=== PATIENT | female | born 1930 | race Caucasian/White ===

== ENCOUNTER 2017-04-15 12:46 | Emergency (ER) | payer OTHER ==
[~2017-04-15] VITALS: Ht 160 cm; Wt 66.0 kg
[~2017-04-15 12:46] MED LIST: AMLO5 PO; COUM3TAB PO; ENAL10 PO; FOSA70TA PO; LEVO100T60 PO; LOVA1TAB47 PO; LUTEIN PO; METO50TA PO; TRAM100T19 PO; VITAMIN PO
[2017-04-15 12:50] VITALS: BP 136/73; PULSE 82; RESP 20; TEMP 97.6; O2SAT 94
[2017-04-15 13:30] LABS: BASOPHIL # 0.1 TH/MM3 (0-0.2); EOSINOPHIL # 0.1 TH/MM3 (0-0.4); HEMATOCRIT 40.7 % (35.0-46.0); HEMO FLAGS DIFF FINAL; LYMPH % 15.5 % (9.0-44.0); LYMPHOCYTE # 1.4 TH/MM3 (1.0-4.8); MEAN CELL VOLUME 88.5 FL (80.0-100.0); MEAN CORPUSCULAR HEMOGLOBIN 29.8 PG (27.0-34.0); MEAN CORPUSCULAR HGB CONC 33.6 % (32.0-36.0); MONO % 6.6 % (0.0-8.0); NEUT % 75.9 % (16.0-70.0); PLATELET COUNT 268 TH/MM3 (150-450); RED CELL DISTRIBUTION WIDTH 13.5 % (11.6-17.2); WHITE BLOOD COUNT 9.2 TH/MM3 (4.0-11.0)
--- NOTE | 2017-04-15 13:30 | PD ---
HPI Chief Complaint: Back/ Neck Pain or Injury Time Seen by Provider: 13:05 Travel History International Travel<30 days: No Contact w/Intl Traveler<30days: No Traveled to known affect area: No History of Present Illness HPI This is an 87-year-old female who presents to the emergency department with 4 days of mid back pain, constant, severe, worse with lifting her left arm and with moving. She's never had pain like this before. It started after she went swimming on Monday. She says that for 2 days she started to feel more short of breath and she hasn't been feeling right. She denies any chest pain. PFSH Past Medical History Hx Anticoagulant Therapy: Yes (warfarin) Arthritis: Yes Blood Disorders: No Anxiety: No Depression: No Heart Rhythm Problems: Yes (ATRIAL FIBRILLATION) Cancer: No Cardiac Catheterization: No Cardiovascular Problems: Yes (htn, afib) High Cholesterol: Yes Chest Pain: No Congestive Heart Failure: No Cerebrovascular Accident: No Diabetes: No Diminished Hearing: No Endocrine: Yes GERD: No Genitourinary: No Hiatal Hernia: No Hypertension: Yes Immune Disorder: No Implanted Vascular Access Dvce: Yes Musculoskeletal: Yes Neurologic: Yes Psychiatric: No Reproductive: Yes Respiratory: No Migraines: No Seizures: No Sleep Apnea: No Thyroid Disease: Yes (Hypothyroidism ) Tetanus Vaccination: < 5 Years Influenza Vaccination: Yes Past Surgical History Body Medical Devices: MCKAYLA EYE LENS; SCREWS RIGHT HIP, RIGHT HIP REPLACEMENT Coronary Artery Bypass Graft: No Eye Surgery: Yes (BILATERAL CATARACT SX) Hysterectomy: Yes Other Surgery: Yes (DETACHED RETINA RIGHT EYE 1992) Social History Alcohol Use: No Tobacco Use: No Substance Use: No Allergies-Medications (Allergen,Severity, Reaction): Coded Allergies: No Known Allergies (Verified , 04/15/17) Reported Meds & Prescriptions Reported Meds & Active Scripts Active Reported Tramadol (Tramadol HCl) 50 Mg Tab 50 Mg PO Q8H PRN Coumadin (Warfarin) 4 Mg Tab 4 Mg PO DAILY Metoprolol Tartrate 50 Mg Tab 50 Mg PO DAILY Lovastatin 20 Mg Tab 20 Mg PO DAILY Levoxyl (Levothyroxine Sodium) 100 Mcg Tab 100 Mcg PO DAILY Hydrochlorothiazide 12.5 Mg Cap 12.5 Mg PO DAILY Norvasc (Amlodipine Besylate) 10 Mg Tab 10 Mg PO BID Fosamax (Alendronate Sodium) 70 Mg Tab 70 Mg PO Q7D Review of Systems Except as stated in HPI: all other systems reviewed are Neg Physical Exam Narrative GENERAL:Well appearing, no acute distress SKIN: Focused skin assessment warm and dry. HEAD: Atraumatic. Normocephalic. EYES: Pupils equal and round. No injection or drainage. ENT: Moist mucous membranes NECK: Trachea midline. CARDIOVASCULAR: Regular rate and rhythm. No murmur appreciated. RESPIRATORY: Clear to auscultation. Breath sounds equal bilaterally. GASTROINTESTINAL: Abdomen soft, non-tender, nondistended. MUSCULOSKELETAL: Tender to palpation in the lower thoracic spine with tenderness to palpation in the left flank NEUROLOGICAL: Awake and alert. No obvious cranial nerve deficits. Moving all extremities. PSYCHIATRIC: Appropriate mood and affect; insight and judgment normal. Data Data Last Documented VS Vital Signs Date Time Temp Pulse Resp B/P Pulse Ox O2 Delivery O2 Flow Rate FiO2 04/15/17 15:54 16 04/15/17 15:21 97.8 72 142/70 99 Room Air Orders Complete Blood Count With Diff (04/15/17 13:13) Comprehensive Metabolic Panel (04/15/17 13:13) ^ Insert Iv (04/15/17 13:13) D-Dimer (04/15/17 13:13) Troponin I (04/15/17 13:13) Chest, Single Ap (04/15/17 ) Electrocardiogram (04/15/17 ) Spine, Thoracic-Ap/Lat/Sw(3vw) (04/15/17 ) Urinalysis - C+S If Indicated (04/15/17 14:02) Ct Pulmonary Angiogram (04/15/17 ) Ct Abd/Pel W Iv Contrast(Rout) (04/15/17 ) Ct Thor Spine W/O Contrast (04/15/17 ) Iohexol 350 Inj (Omnipaque 350 Inj) (04/15/17 14:56) Tramadol (Ultram) (04/15/17 15:15) Morphine Inj (Morphine Inj) (04/15/17 15:45) Troponin I (04/15/17 15:41) Labs Laboratory Tests Test 04/15/17 04/15/17 13:15 15:00 White Blood Count 9.2 TH/MM3 Red Blood Count 4.60 MIL/MM3 Hemoglobin 13.7 GM/DL Hematocrit 40.7 % Mean Corpuscular Volume 88.5 FL Mean Corpuscular Hemoglobin 29.8 PG Mean Corpuscular Hemoglobin 33.6 % Concent Red Cell Distribution Width 13.5 % Platelet Count 268 TH/MM3 Mean Platelet Volume 8.2 FL Neutrophils (%) (Auto) 75.9 % Lymphocytes (%) (Auto) 15.5 % Monocytes (%) (Auto) 6.6 % Eosinophils (%) (Auto) 1.0 % Basophils (%) (Auto) 1.0 % Neutrophils # (Auto) 7.0 TH/MM3 Lymphocytes # (Auto) 1.4 TH/MM3 Monocytes # (Auto) 0.6 TH/MM3 Eosinophils # (Auto) 0.1 TH/MM3 Basophils # (Auto) 0.1 TH/MM3 CBC Comment DIFF FINAL Differential Comment D-Dimer Quantitative (PE/DVT) 0.19 MG/L FEU Sodium Level 140 MEQ/L Potassium Level 4.0 MEQ/L Chloride Level 105 MEQ/L Carbon Dioxide Level 29.5 MEQ/L Anion Gap 6 MEQ/L Blood Urea Nitrogen 17 MG/DL Creatinine 1.02 MG/DL Estimat Glomerular Filtration 52 ML/MIN Rate Random Glucose 155 MG/DL Calcium Level 9.0 MG/DL Total Bilirubin 0.4 MG/DL Aspartate Amino Transf 15 U/L (AST/SGOT) Alanine Aminotransferase 17 U/L (ALT/SGPT) Alkaline Phosphatase 67 U/L Troponin I LESS THAN 0.02 NG/ML Total Protein 8.0 GM/DL Albumin 3.8 GM/DL Urine Color YELLOW Urine Turbidity CLEAR Urine pH 7.5 Urine Specific [place] 1.034 Urine Protein 30 mg/dL Urine Glucose (UA) NEG mg/dL Urine Ketones NEG mg/dL Urine Occult Blood NEG Urine Nitrite NEG Urine Bilirubin NEG Urine Urobilinogen LESS THAN 2.0 MG/DL Urine Leukocyte Esterase NEG Urine RBC 3 /hpf Urine WBC LESS THAN 1 /hpf Urine Squamous Epithelial <1 /hpf Cells Urine Hyaline Casts 1 /lpf Microscopic Urinalysis Comment CULT NOT INDICATED MDM Medical Decision Making Medical Screen Exam Complete: Yes Emergency Medical Condition: Yes Interpretation(s) afebrile, no tachycardia, normotensive EKG: atrial fibrillation,possible q waves in V1-V3 no leukocytosis electrolytes reassuring troponin less than .02 urinalysis: no infection Last 24 hours Impressions Thoracic Spine X-Ray 04/15/17 0000 Signed Impressions: Service Date/Time: Saturday, April 15, 2017 13:26 - CONCLUSION: 1. Mild scoliosis. No acute fracture identified. Stable mild compression deformity at T12. Vignesh Rangel MD Thoracic Spine CT 04/15/17 Signed Impressions: Service Date/Time: Saturday, April 15, 2017 14:31 - CONCLUSION: 1. Minimal superior endplate depression at T6 which is probably acute. Mild scoliosis. Old mild compression deformity of T12. Vignesh Rangel MD Chest X-Ray 04/15/17 Signed Impressions: Service Date/Time: Saturday, April 15, 2017 13:24 - CONCLUSION: 1. Cardiomegaly. Mild basal airspace disease. No significant effusion. Vignesh Rangel MD CT Angiography 04/15/17 Signed Impressions: Service Date/Time: Saturday, April 15, 2017 14:31 - CONCLUSION: 1. Negative for pulmonary embolism. Cardiomegaly. Hepatic cysts. Vignesh Rangel MD Abdomen/Pelvis CT 04/15/17 Signed Impressions: Service Date/Time: Saturday, April 15, 2017 14:31 - CONCLUSION: 1. No acute findings within the abdomen and pelvis. Colonic diverticulosis without diverticulitis. 2. Numerous hepatic and bilateral renal cysts. 3. Previous right hip replacement. Healed pelvic fractures. 4. 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 Vignesh Rangel MD Differential Diagnosis Thoracic compression fracture, kidney stone, pulmonary embolism, pneumonia, rib fracture Narrative Course This is an 87-year-old female who presents to the emergency department with midthoracic back pain. She denies any history of trauma. She is focally tender along the mid thoracic spine and along the left paraspinal area. She is placed in a monitor and an IV was established. EKG demonstrates atrial fibrillation and possible old Q waves in V1 through V3. Labs are unremarkable. T-spine x-ray initially demonstrated a chronic compression fracture at T12. Her pain appeared higher and she was also complaining of some pain laterally. Given her age and her level of discomfort I ordered a CT of the chest, thoracic spine and abdomen and pelvis. Ultimately she was found to have a compression deformity at T6 which is likely acute which I suspect is the etiology of her pain. I did repeat a troponin after 3 hours which was reassuring. Patient will be discharged home with pain control and follow-up with a neurosurgeon. Diagnosis Primary Impression: Compression deformity of vertebra Referrals: Fredo Vigil MD Patient Instructions: General Instructions Additional Instructions: If you develop weakness of your legs, difficulty walking, numbness of your legs or your genital or rectal area, loss of your bowel or bladder, or difficulty urinating return to the emergency department immediately. Followup with a neurosurgeon regarding your back pain if your symptoms are not improved in one week.. Med/Other Pt SpecificInfo: Prescription(s) given Scripts Hydrocodone-Acetaminophen (Lortab)5-325 Mg Tab1 Tab PO Q6H PRN (PAIN) #14 TAB Ref 0 Prov:Barbie Mancini MD 04/15/17 Disposition: 01 DISCHARGE HOME Condition: Stable Barbie Mancini MD Apr 15, 2017 13:30
[2017-04-15] MEDS ORDERED: LEVO100T63 PO (13:39)
[2017-04-15] MEDS ORDERED: FOSA70TA PO (13:39)
[2017-04-15] MEDS ORDERED: LOVA20TA PO (13:39)
[2017-04-15] MEDS ORDERED: COUM4TAB PO (13:39)
[2017-04-15] MEDS ORDERED: AMLO10 PO (13:39)
[2017-04-15] MEDS ORDERED: METO50TA PO (13:39)
[2017-04-15] MEDS ORDERED: HYDR12.57 PO (13:39)
[2017-04-15] MEDS ORDERED: TRAM50TA PO (13:40)
[2017-04-15 13:43] LABS: ALT (GPT) 17 U/L (10-53); ANION GAP 6 MEQ/L (5-15); AST (GOT) 15 U/L (15-37); BICARBONATE 29.5 MEQ/L (21.0-32.0); BLOOD UREA NITROGEN 17 MG/DL (7-18); CHLORIDE 105 MEQ/L (98-107); GLOMERULAR FILTRATION RATE 52 ML/MIN (>89); SODIUM (NA) 140 MEQ/L (136-145)
[2017-04-15 13:47] LABS: ALKALINE PHOSPHATASE 67 U/L (45-117); TOTAL BILIRUBIN ADULT 0.4 MG/DL (0.2-1.0)
--- NOTE | 2017-04-15 13:54 | RADRPT ---
EXAM DATE/TIME: 04/15/2017 13:24 [facility] COMPARISON: CHEST SINGLE AP, March 02, 2015, 11:55. INDICATIONS : Shortness of breath and upper back pain. MEDICAL HISTORY : Hypercholesterolemia. Hypertension Hypothyroidism. A-fib. SURGICAL HISTORY : Hysterectomy. Right total hip. ENCOUNTER: Initial ACUITY: 2 days PAIN SCORE: 5/10 LOCATION: Bilateral chest FINDINGS: A single view of the chest demonstrates cardiomegaly. Mild basal airspace disease. No significant eff usion. No pneumothorax. CONCLUSION: 1. Cardiomegaly. Mild basal airspace disease. No significant effusion. Vignesh Rangel MD on April 15, 2017 at 13:50 Board Certified Radiologist. This report was verified electronically.
--- NOTE | 2017-04-15 13:58 | RADRPT ---
EXAM DATE/TIME: 04/15/2017 13:26 [facility] COMPARISON: CHEST PA & LAT, March 06, 2015, 10:09. INDICATIONS : Upper back pain. No prior trauma. MEDICAL HISTORY : Hypercholesterolemia. Hypertension Hypothyroidism. A-fib. SURGICAL HISTORY : Hysterectomy. Right total hip. ENCOUNTER: Initial ACUITY: 2 days PAIN SCORE: 10/10 LOCATION: upper back. FINDINGS: No acute fracture identified. Mild superior endplate depression at T12 which is similar to a prior est radiograph from February 2015. Moderate degenerative disc disease. Mild scoliosis. CONCLUSION: 1. Mild scoliosis. No acute fracture identified. Stable mild compression deformity at T12. Vignesh Rangel MD on April 15, 2017 at 13:52 Board Certified Radiologist. This report was verified electronically.
--- NOTE | 2017-04-15 14:55 | RADRPT ---
EXAM DATE/TIME: 04/15/2017 14:31 [facility] COMPARISON: No previous studies available for comparison. INDICATIONS : Upper back pain and shortness of breath for three days. IV CONTRAST: 75 cc Omnipaque 350 (iohexol) IV ; Cumulative dose for multiple exams. RADIATION DOSE: 6.72 CTDIvol (mGy) MEDICAL HISTORY : Hypertension. Cardiovascular disease Hypothyroidism. SURGICAL HISTORY : Hysterectomy. ENCOUNTER: Initial ACUITY: 1 day PAIN SCALE: 5/10 LOCATION: upper back TECHNIQUE: Volumetric scanning of the chest was performed using a pulmonary embolism protocol MIP images were re constructed. Using automated exposure control and adjustment of the mA and/or kV according to patien t size, radiation dose was kept as low as reasonably achievable to obtain optimal diagnostic quality images. DICOM format image data is available electronically for review and comparison. FINDINGS: No filling defects to suggest pulmonary embolus. Mild basilar dependent atelectasis in the lungs. Car diomegaly. No effusion. Upper abdomen reveals numerous hepatic cysts. CONCLUSION: 1. Negative for pulmonary embolism. Cardiomegaly. Hepatic cysts. Vignesh Rangel MD on April 15, 2017 at 14:48 Board Certified Radiologist. This report was verified electronically.
[2017-04-15] MEDS ORDERED: IOHEXOL 350 MG/ML 10 ML VIAL (for RAD DIAG) IV ONE (14:56)
[2017-04-15] MEDS ORDERED: traMADol HCL 50 MG TAB PO ONE (15:15)
--- NOTE | 2017-04-15 15:19 | RADRPT ---
EXAM DATE/TIME: 04/15/2017 14:31 [facility] COMPARISON: CT PULMONARY ANGIOGRAM, March 02, 2015, 16:02. INDICATIONS : Back pain. IV CONTRAST: 100 cc Omnipaque 350 (iohexol) IV ORAL CONTRAST: No oral contrast ingested. RADIATION DOSE: 11.41 CTDIvol (mGy) MEDICAL HISTORY : Cardiovascular disease. Hypertension. SURGICAL HISTORY : None. ENCOUNTER: Initial ACUITY: 1 day PAIN SCALE: 5/10 LOCATION: Bilateral back. TECHNIQUE: Volumetric scanning of the abdomen and pelvis was performed. Using automated exposure control and ad justment of the mA and/or kV according to patient size, radiation dose was kept as low as reasonably achievable to obtain optimal diagnostic quality images. DICOM format image data is available electro nically for review and comparison. FINDINGS: Numerous hepatic cysts are noted similar to CT from February 2015. Lung bases clear except for dependent a telectasis. Cardiomegaly. No acute findings in the spleen, adrenals or pancreas. Numerous bilateral renal cysts measuring up to 6.1 cm on the right. There is colonic diverticulosis without evidence for diverticulitis. Previous right hip replacement. Healed fracture left pubic bone and inferior pubic ramus. CONCLUSION: 1. No acute findings within the abdomen and pelvis. Colonic diverticulosis without diverticulitis. 2. Numerous hepatic and bilateral renal cysts. 3. Previous right hip replacement. Healed pelvic fractures. 4. Stable remote compression deformity of T12 with moderate to severe degenerative disc disease in akhil mbar spine. Vignesh Rangel MD on April 15, 2017 at 15:09 Board Certified Radiologist. This report was verified electronically.
[2017-04-15 15:21] VITALS: BP 142/70; PULSE 72; RESP 16; TEMP 97.8; O2SAT 99
--- NOTE | 2017-04-15 15:24 | RADRPT ---
EXAM DATE/TIME: 04/15/2017 14:31 [facility] COMPARISON: No previous studies available for comparison. INDICATIONS : Back pain. RADIATION DOSE: ; Reconstructed from previous dataset MEDICAL HISTORY : Cardiovascular disease. Hypertension. SURGICAL HISTORY : None. ENCOUNTER: Initial ACUITY: 1 day PAIN SCALE: 6/10 LOCATION: Bilateral back TECHNIQUE: Volumetric scanning of the thoracic spine was performed. Multiplanar reconstructions in the sagittal , coronal and oblique axial planes were performed. Using automated exposure control and adjustment o f the mA and/or kV according to patient size, radiation dose was kept as low as reasonably achievable to obtain optimal diagnostic quality images. DICOM format image data is available electronically f or review and comparison. FINDINGS: There is a questionable minimal superior endplate compression of T6. No retropulsion. No fractures id entified. Stable chronic depression of T12. Mild scoliosis. No significant bony canal or foraminal st enosis. CONCLUSION: 1. Minimal superior endplate depression at T6 which is probably acute. Mild scoliosis. Old mild compr ession deformity of T12. Vignesh Rangel MD on April 15, 2017 at 15:17 Board Certified Radiologist. This report was verified electronically.
[2017-04-15 15:37] LABS: BLOOD, URINE NEG (NEG); COMMENT (UR) CULT NOT INDICATED; CULTURE IF INDICATED CULT NOT INDICATED; GLUCOSE,URINE NEG (NEG); HYALINE CAST, URINE 1 /lpf (RARE); KETONE, URINE NEG (NEG); NITRITE,URINE NEG (NEG); PH, URINE 7.5 (5.0-8.5); SQUAMOUS EPITHELIAL CELL URINE <1 /hpf (0-5); URINE COLOR YELLOW (YELLW/STRAW)
[2017-04-15] MEDS ORDERED: MORPHINE SULFATE 4 MG/ML INJ IV PUSH ONE (15:45)
[2017-04-15 15:54] VITALS: RESP 16
[2017-04-15] MEDS ORDERED: HYDR-3533 PO (16:41)
[2017-04-15 17:10] VITALS: BP 138/76; TEMP 97.8
--- NOTE | 2017-04-16 13:32 | EKG ---
Date Performed: 04/15/2017 Time Performed: 13:49:58 PTAGE: 87 years EKG: ATRIAL FIBRILLATION MARKED RIGHT AXIS DEVIATION SEPTAL MYOCARDIAL INFARCTION Compared to pr evious tracing, the lateral ST segment changes have resolved. ABNORMAL ECG PREVIOUS TRACING : 03/02/2015 13.04 DOCTOR: Tamiko Ames Interpretating Date/Time 04/16/2017 13:31:41
== END 2017-04-15 17:10 | disposition home or self-care (01) ==
LOC: NEPE 12:46
DX: M43.8X4 Other specified deforming dorsopathies, thoracic region (principal); R06.02 Shortness of breath; R94.31 Abnormal electrocardiogram [ECG] [EKG]; I10 Essential (primary) hypertension; E03.9 Hypothyroidism, unspecified; E78.00 Pure hypercholesterolemia, unspecified; Z79.01 Long term (current) use of anticoagulants; Z87.39 Personal history of other diseases of the musculoskeletal system and connective tissue; Z86.79 Personal history of other diseases of the circulatory system; Z86.69 Personal history of other diseases of the nervous system and sense organs
CPT/HCPCS: 71010; 71275; 72072; 72128; 74177; 80053; 81001; 84484; 85025; 85379; 93005; 96374; 99285; J2270; Q9967

== ENCOUNTER 2017-05-19 02:17 | Inpatient (IN) | payer OTHER, MEDICARE ==
[~2017-05-19] VITALS: Ht 160 cm; Wt 72.0 kg
[2017-05-19] VITALS (11 sets, daily range): BP systolic 131–178; BP diastolic 62–86; PULSE 71–86; RESP 16–20; TEMP 97.7–98.5; O2SAT 94–98
[~2017-05-19 02:17] MED LIST changes: +AMLO10 PO; -AMLO5 PO; -COUM3TAB PO; +COUM4TAB PO; -ENAL10 PO; +HYDR-3533 PO; +HYDR12.57 PO; -LEVO100T60 PO; +LEVO100T63 PO; -LOVA1TAB47 PO; +LOVA20TA PO; -LUTEIN PO; -TRAM100T19 PO; +TRAM50TA PO; -VITAMIN PO
[2017-05-19] MEDS ORDERED: SODIUM CHLORIDE 0.9% FLUSH 10 ML FLUSH IVF PRN (03:15)
[2017-05-19 03:31] LABS: AUTOMATED NEUTROPHIL # 5.6 TH/MM3 (1.8-7.7); BASOPHIL # 0.1 TH/MM3 (0-0.2); BASOPHIL % 0.9 % (0.0-2.0); EOSINOPHIL # 0.4 TH/MM3 (0-0.4); EOSINOPHIL % 4.5 % (0.0-4.0); HEMO FLAGS DIFF FINAL; LYMPH % 21.6 % (9.0-44.0); LYMPHOCYTE # 1.9 TH/MM3 (1.0-4.8); MEAN CELL VOLUME 90.3 FL (80.0-100.0); MEAN CORPUSCULAR HEMOGLOBIN 30.5 PG (27.0-34.0); MEAN CORPUSCULAR HGB CONC 33.7 % (32.0-36.0); MONO % 10.4 % (0.0-8.0); NEUT % 62.6 % (16.0-70.0); PLATELET COUNT 208 TH/MM3 (150-450); RED BLOOD COUNT 3.99 MIL/MM3 (4.00-5.30); RED CELL DISTRIBUTION WIDTH 13.6 % (11.6-17.2)
[2017-05-19 03:45] LABS: APTT (PATIENT) 26.5 SEC (24.3-30.1); INTERNATIONAL NORMALIZED RATIO 1.3 RATIO; PROTHROMBIN TIME - PATIENT 14.8 SEC (9.8-11.6)
[2017-05-19 03:55] LABS: BICARBONATE 29.3 MEQ/L (21.0-32.0)
--- NOTE | 2017-05-19 04:51 | PD ---
HPI Chief Complaint: Musculoskeletal Complaint Time Seen by Provider: 02:37 Travel History International Travel<30 days: No Contact w/Intl Traveler<30days: No Traveled to known affect area: No History of Present Illness HPI 87-year-old female woke up this morning at approximately 1 AM with a cold sensation in her right lower extremity, about 1 hour prior to ER arrival. The patient then ambulated to the bathroom and felt fairly severe pain in the region of the right calf. She notes a few days prior she underwent a kyphoplasty by Dr. Gonzalez. The patient stopped taking Coumadin in order to undergo the procedure. She has atrial fibrillation. She resumed Coumadin 3 days ago however is unsure of her INR value. At the time of ER evaluation she describes mild persistent cold sensation in the right lower extremity though much better than at home. She also reports overall the right calf pain is less severe. She did note at home the right foot appeared somewhat zaidi compared to the left and although it is still zaidi in the ER it is not quite as bad. PFSH Past Medical History Hx Anticoagulant Therapy: Yes (Warfarin) Arthritis: Yes Blood Disorders: No Anxiety: No Depression: No Heart Rhythm Problems: Yes (ATRIAL FIBRILLATION) Cancer: No Cardiac Catheterization: No Cardiovascular Problems: Yes (CHF, Cardiomyopathy, HTN, A-fib) High Cholesterol: Yes Chest Pain: No Congestive Heart Failure: No Cerebrovascular Accident: No Diabetes: No Diminished Hearing: No Endocrine: Yes Gastrointestinal Disorders: Yes GERD: No Genitourinary: No Headaches: No Hiatal Hernia: No Heparin Induced Thrombocytopen: No Hypertension: Yes Immune Disorder: No Implanted Vascular Access Dvce: Yes Musculoskeletal: Yes Neurologic: Yes Psychiatric: No Reproductive: Yes Respiratory: No Immunizations Current: Yes Migraines: No Seizures: No Sleep Apnea: No Thyroid Disease: Yes (Hypothyroidism ) Tetanus Vaccination: > 5 Years Influenza Vaccination: Yes ?: Not Past Surgical History Body Medical Devices: MCKAYLA EYE LENS; SCREWS RIGHT HIP, RIGHT HIP REPLACEMENT Coronary Artery Bypass Graft: No Eye Surgery: Yes (BILATERAL CATARACT SX) Hysterectomy: Yes Other Surgery: Yes (DETACHED RETINA RIGHT EYE 1992) Family History Family Myocardial Infarction: No Social History Alcohol Use: No Tobacco Use: No Substance Use: No Allergies-Medications (Allergen,Severity, Reaction): Coded Allergies: No Known Allergies (Verified , 05/19/17) Reported Meds & Prescriptions Reported Meds & Active Scripts Active Lortab (Hydrocodone-Acetaminophen) 5-325 Mg Tab 1 Tab PO Q6H PRN Reported Tramadol (Tramadol HCl) 50 Mg Tab 50 Mg PO Q8H PRN Coumadin (Warfarin) 4 Mg Tab 4 Mg PO DAILY Metoprolol Tartrate 50 Mg Tab 50 Mg PO DAILY Lovastatin 20 Mg Tab 20 Mg PO DAILY Levoxyl (Levothyroxine Sodium) 100 Mcg Tab 100 Mcg PO DAILY Hydrochlorothiazide 12.5 Mg Cap 12.5 Mg PO DAILY Norvasc (Amlodipine Besylate) 10 Mg Tab 10 Mg PO BID Fosamax (Alendronate Sodium) 70 Mg Tab 70 Mg PO Q7D Review of Systems Except as stated in HPI: all other systems reviewed are Neg General / Constitutional: No: Fever Musculoskeletal: Positive: Pain Physical Exam Narrative GENERAL: 87-year-old female well-nourished well-developed pleasant mild distress SKIN: Focused skin assessment warm/dry. HEAD: Atraumatic. Normocephalic. EYES: Pupils equal and round. No scleral icterus. No injection or drainage. ENT: No nasal bleeding or discharge. Mucous membranes pink and moist. NECK: Trachea midline. No JVD. CARDIOVASCULAR: Irregular. Rate approximately 80. RESPIRATORY: No accessory muscle use. Clear to auscultation. Breath sounds equal bilaterally. GASTROINTESTINAL: Abdomen soft, non-tender, nondistended. Hepatic and splenic margins not palpable. MUSCULOSKELETAL: No obvious deformities. No clubbing. No cyanosis. No edema. There is no palpable dorsalis pedis pulse in the right side. There is capillary refill of less than 2 seconds. The right lower extremity is somewhat cooler compared to the left at the region of the dorsum of the foot. There is 2 + dorsalis pedis on the left side. NEUROLOGICAL: Awake and alert. No obvious cranial nerve deficits. Motor grossly within normal limits. Normal speech. PSYCHIATRIC: Appropriate mood and affect; insight and judgment normal. Data Data Last Documented VS Vital Signs Date Time Temp Pulse Resp B/P Pulse Ox O2 Delivery O2 Flow Rate FiO2 05/19/17 03:19 18 05/19/17 02:19 97.9 78 178/86 97 Room Air Vital signs reviewed Orders Basic Metabolic Panel (Bmp) (05/19/17 03:03) Complete Blood Count With Diff (05/19/17 03:03) Prothrombin Time / Inr (Pt) (05/19/17 03:03) Act Partial Throm Time (Ptt) (05/19/17 03:03) Ecg Monitoring (05/19/17 03:03) Iv Access Insert/Monitor (05/19/17 03:03) Oximetry (05/19/17 03:03) Sodium Chloride 0.9% Flush (Ns Flush) (05/19/17 03:15) Cta Runoff W Iv Contrast W 3d (05/19/17 ) Heparin Infusion ARTURO.Q1H (05/19/17 05:09) Heparin Inj (Heparin Inj) (05/19/17 05:15) Heparin Inj (Heparin Inj) (05/19/17 11:15) Heparin Inj (Heparin Inj) (05/19/17 11:15) Heparin-D5w Inj (Heparin-D5w Inj) (05/19/17 05:15) Cbc No Diff, Includes Plts (05/22/17 06:00) Act Partial Throm Time (Ptt) (05/19/17 12:09) Occult Blood (Hemoccult) Stool (05/19/17 05:09) Consult Vascular Surgery (05/19/17 ) Admit Order (Ed Use Only) (05/19/17 05:24) Admit To Inpatient (05/19/17 ) Vital Signs (Adult) Q4H (05/19/17 05:22) Activity Bed Rest (05/19/17 05:22) Elder Counselor / Telemetry .CONTINUOUS (05/19/17 05:22) Diet Npo (05/19/17 Breakfast) Sodium Chloride 0.9% Flush (Ns Flush) (05/19/17 05:30) Sodium Chloride 0.9% Flush (Ns Flush) (05/19/17 09:00) Ondansetron Inj (Zofran Inj) (05/19/17 05:30) Comprehensive Metabolic Panel (05/20/17 06:00) Complete Blood Count With Diff (05/20/17 06:00) Acetaminophen (Tylenol) (05/19/17 05:30) Acetamin-Hydrocod 325-5 Mg ([place] 5-325 (05/19/17 05:30) Morphine Inj (Morphine Inj) (05/19/17 05:30) Docusate Sodium-Senna ([place]-Colace) (05/19/17 09:00) Magnesium Hydroxide Liq (Milk Of Magnesi (05/19/17 05:30) Sennosides (Senokot) (05/19/17 05:30) Bisacodyl Supp (Dulcolax Supp) (05/19/17 05:30) Lactulose Liq (Lactulose Liq) (05/19/17 05:30) Inpatient Certification (05/19/17 ) Pravastatin (Pravachol) (05/19/17 09:00) Metoprolol Tartrate (Lopressor) (05/19/17 09:00) Labs Laboratory Tests Test 05/19/17 03:15 White Blood Count 9.0 TH/MM3 Red Blood Count 3.99 MIL/MM3 Hemoglobin 12.1 GM/DL Hematocrit 36.0 % Mean Corpuscular Volume 90.3 FL Mean Corpuscular Hemoglobin 30.5 PG Mean Corpuscular Hemoglobin 33.7 % Concent Red Cell Distribution Width 13.6 % Platelet Count 208 TH/MM3 Mean Platelet Volume 7.8 FL Neutrophils (%) (Auto) 62.6 % Lymphocytes (%) (Auto) 21.6 % Monocytes (%) (Auto) 10.4 % Eosinophils (%) (Auto) 4.5 % Basophils (%) (Auto) 0.9 % Neutrophils # (Auto) 5.6 TH/MM3 Lymphocytes # (Auto) 1.9 TH/MM3 Monocytes # (Auto) 0.9 TH/MM3 Eosinophils # (Auto) 0.4 TH/MM3 Basophils # (Auto) 0.1 TH/MM3 CBC Comment DIFF FINAL Differential Comment Prothrombin Time 14.8 SEC Prothromb Time International 1.3 RATIO Ratio Activated Partial 26.5 SEC Thromboplast Time Sodium Level 143 MEQ/L Potassium Level 4.0 MEQ/L Chloride Level 105 MEQ/L Carbon Dioxide Level 29.3 MEQ/L Anion Gap 9 MEQ/L Blood Urea Nitrogen 24 MG/DL Creatinine 0.87 MG/DL Estimat Glomerular Filtration 62 ML/MIN Rate Random Glucose 118 MG/DL Calcium Level 8.9 MG/DL MDM Medical Decision Making Medical Screen Exam Complete: Yes Emergency Medical Condition: Yes Medical Record Reviewed: Yes Differential Diagnosis Arterial occlusion, muscle cramp, claudication, DVT Narrative Course Patient has a right lower extremity arterial occlusion. Heparin started. Case discussed vascular surgery Dr. Gtz. The patient will be kept nothing by mouth. Case discussed with Dr. Pardo. CBC & BMP Diagram 05/19/17 03:15 Critical Care Narrative Aggregate critical care time was 40 minutes. Time to perform other separately billable procedures was not included in the critical care time. My time did not include minutes spent treating any other patients simultaneously or on activities that did not directly contribute to the patient's treatment. The services I provided to this patient were to treat and/or prevent clinically significant deterioration that could result in: Loss of limb, ischemia, infection I provided critical care services requiring my management, as noted below: Chart data review, documentation time, medication orders and management, vital sign assessments/reviewing monitor data, ordering and reviewing lab tests, ordering and interpreting/reviewing x-rays and diagnostic studies, care of the patient and discussion of the patient with the admitting physicians. Diagnosis Primary Impression: Arterial occlusion Admitting Information Admitting Physician Requests: Tim Wall MD May 19, 2017 04:51
[2017-05-19] MEDS ORDERED: HEPARIN SODIUM - IV 10,000 UNITS/10 ML VIAL IV ONE (05:15)
[2017-05-19] MEDS ORDERED: HEPARIN-D5W INJ 250 ML IV SCH (05:15)
[2017-05-19] MEDS ORDERED: SENNOSIDES 8.6 MG TAB PO PRN (05:30)
[2017-05-19] MEDS ORDERED: MAGNESIUM HYDROXIDE SUSP 30 ML CUP PO PRN ×2 (05:30→09:45)
[2017-05-19] MEDS ORDERED: LACTULOSE SYRUP 20 GM/30 ML CUP PO PRN (05:30)
[2017-05-19] MEDS ORDERED: SODIUM CHLORIDE 0.9% FLUSH 10 ML FLUSH IV FLUSH PRN (05:30)
[2017-05-19] MEDS ORDERED: ONDANSETRON HCL 4 MG/2 ML VIAL IVP PRN (05:30)
[2017-05-19] MEDS ORDERED: ACETAMINOPHEN 325 MG TAB PO PRN ×2 (05:30→09:45)
[2017-05-19] MEDS ORDERED: MORPHINE SULFATE 4 MG/ML INJ IV PRN (05:30)
[2017-05-19] MEDS ORDERED: BISACODYL 10 MG SUPP RECTAL PRN (05:30)
[2017-05-19] MEDS ORDERED: ACETAMINOPHEN/HYDROcodone 325 MG/5 MG TAB PO PRN (05:30)
[2017-05-19] MEDS ORDERED: IOHEXOL 350 MG/ML 10 ML VIAL (for RAD DIAG) IV ONE (06:08)
--- NOTE | 2017-05-19 06:37 | RADRPT ---
EXAM DATE/TIME: 05/19/2017 04:55 [place] COMPARISON: No previous studies available for comparison. INDICATIONS : Patient complains of right leg pain and is cold from the knee down. IV CONTRAST: 100 cc Omnipaque 350 (iohexol) IV RADIATION DOSE: 2.31 CTDIvol (mGy) MEDICAL HISTORY : Cardiovascular disease. Hypertension. Congestive heart failure. SURGICAL HISTORY : Hysterectomy. Right hip replacement. ENCOUNTER: Initial ACUITY: 1 day PAIN SCALE: 5/10 LOCATION: Right lower extremity. TECHNIQUE: Volumetric scanning was performed using a multi-row detector CT scanner. The data was post processed with a variety of visualization algorithms including full volume maximum intensity projection, multi -planar sliding thin slab reformation, curved planar reformation, and surface rendering techniques. Using automated exposure control and adjustment of the mA and/or kV according to patient size, radiat ion dose was kept as low as reasonably achievable to obtain optimal diagnostic quality images. DICO M format image data is available electronically for review and comparison. FINDINGS: Examination of the lung bases demonstrates no abnormality. No pleural fluid is identified. No pulmona ry nodules are present. There are multiple hypodensities within the liver compatible with hepatic cys ts the largest measuring 3 cm in segment 2The spleen is normal in size and free of focal defects. The gallbladder and pancreas are unremarkable. No intrahepatic or extrahepatic ductal dilatation is seen . The adrenal glands are unremarkable. There are simple cysts bilaterally the largest measuring 6.6 c m in the lower pole on the right. There is diverticulosis without evidence of diverticulitis. There i s a 2.7 cm right adnexal cyst. The aorta is normal in caliber. There is no evidence of aneurysm or dissection. The renal artery orig ins are patent bilaterally. The celiac axis and superior mesenteric artery origins are also patent. Examination of the right lower extremity demonstrates no evidence of inflow stenosis. The common femo ral artery is patent. The superficial femoral artery is patent. There is abrupt occlusion of the dist al popliteal artery with reconstitution of the trifurcation vessels. Embolus should be considered. Examination of the left lower extremity demonstrates no evidence of inflow stenosis. The common femor al artery is patent. The superficial femoral artery is widely patent. The popliteal segment is unrema rkable. There is three-vessel runoff to the ankle. CONCLUSION: 1. 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 2. Multiple bilateral renal cysts and hepatic cysts. 3. 2.7 cm right adnexal cyst. Mike Fonseca MD on May 19, 2017 at 6:29 Board Certified Radiologist. This report was verified electronically.
--- NOTE | 2017-05-19 07:16 | PD.VS.CON ---
History of Present Illness Chief Complaint: New onset right calf pain that awakened her. Consult Requested by: History of Present Illness 87-year-old female woke up this morning at approximately 1 AM with a cold sensation in her right lower extremity, With ambulation severe pain in the region of the right calf. Foot was cold and discolored (bluish). Pain still intense with ambulation. She notes a few days prior she underwent a kyphoplasty by Dr. Gonzalez. Coumadin was held, hx of afib. Past/Family/Social History Past Medical History CHF afib OA Hyperlipidemia Past Surgical History kyphoplasty right hip surgery Home Medications Active Scripts Hydrocodone-Acetaminophen (Lortab)5-325 Mg Tab1 Tab PO Q6H PRN (PAIN) #14 TAB Ref 0 Prov:Barbie Mancini MD 04/15/17 Reported Medications Tramadol 50 Mg Tab50 Mg PO Q8H PRN (PAIN) Ref 0 04/15/17 Warfarin (Coumadin)4 Mg Tab4 Mg PO DAILY #30 TAB Ref 0 04/15/17 Metoprolol Tartrate 50 Mg Tab50 Mg PO DAILY #30 TAB Ref 0 04/15/17 Lovastatin 20 Mg Tab20 Mg PO DAILY #30 TAB Ref 0 04/15/17 Levothyroxine (Levoxyl)100 Mcg Yaf323 Mcg PO DAILY #30 TAB Ref 0 04/15/17 Hydrochlorothiazide 12.5 Mg Cap12.5 Mg PO DAILY #30 CAP Ref 0 04/15/17 Amlodipine (Norvasc)10 Mg Tab10 Mg PO BID #30 TAB Ref 0 04/15/17 Alendronate (Fosamax)70 Mg Tab70 Mg PO Q7D #4 TAB Ref 0 04/15/17 Coded Allergies: No Known Allergies (Verified , 05/19/17) Physical Exam Vitals/I&O Date Time Temp Pulse Resp B/P Pulse Ox O2 Delivery O2 Flow Rate FiO2 05/19/17 05:37 84 16 161/79 97 Room Air 05/19/17 03:19 18 05/19/17 02:19 97.9 78 16 178/86 97 Room Air Neuro: A&Ox3 Neck: Supple Heart: Irregular Lungs: CTA Abdomen: Soft Vascular: right PT with faint PT. NO DP Left DP palpable Extremities: Right foot cool motor and sensory intact. Laboratory Tests Test 05/19/17 05/19/17 03:15 05:45 White Blood Count 9.0 Red Blood Count 3.99 Hemoglobin 12.1 Hematocrit 36.0 Mean Corpuscular Volume 90.3 Mean Corpuscular Hemoglobin 30.5 Mean Corpuscular Hemoglobin 33.7 Concent Red Cell Distribution Width 13.6 Platelet Count 208 Mean Platelet Volume 7.8 Neutrophils (%) (Auto) 62.6 Lymphocytes (%) (Auto) 21.6 Monocytes (%) (Auto) 10.4 Eosinophils (%) (Auto) 4.5 Basophils (%) (Auto) 0.9 Neutrophils # (Auto) 5.6 Lymphocytes # (Auto) 1.9 Monocytes # (Auto) 0.9 Eosinophils # (Auto) 0.4 Basophils # (Auto) 0.1 CBC Comment DIFF FINAL Differential Comment Prothrombin Time 14.8 Prothromb Time International 1.3 Ratio Activated Partial 26.5 Thromboplast Time Sodium Level 143 Potassium Level 4.0 Chloride Level 105 Carbon Dioxide Level 29.3 Anion Gap 9 Blood Urea Nitrogen 24 Creatinine 0.87 Estimat Glomerular Filtration 62 Rate Random Glucose 118 Calcium Level 8.9 Blood Type A NEGATIVE Antibody Screen NEGATIVE Assessment and Plan Assessment: (1) Arterial occlusion Status: Acute Plan 87 year old female with hx of afib with reversal for kyphoplasty now with new onset calf pain and a pulseless cool foot. Plan for surgical embolectomy and possible fasciotomy. Discussed with the patient's daughter and friend by phone. She understands risks and benefits of the procedure. On heparin drip in the interim. Louie Gtz DO May 19, 2017 07:16
[2017-05-19] MEDS ORDERED: HEPARIN SODIUM - IV 10,000 UNITS/10 ML VIAL ONE (07:29)
[2017-05-19] MEDS ORDERED: BUPIVACAINE HCL PF 0.5% 30 ML VIAL ONE (07:29)
[2017-05-19] MEDS ORDERED: THROMBIN (TOPICAL) 20,000 UNIT SPRAY KIT ONE (07:29)
[2017-05-19] MEDS: PRAVASTATIN SOD 20 MG TAB PO SCH (09:00)
[2017-05-19] MEDS: SODIUM CHLORIDE 0.9% FLUSH 10 ML FLUSH IV FLUSH SCH ×2 (09:00→21:00)
[2017-05-19] MEDS: METOPROLOL TARTRATE 50 MG TAB PO SCH (09:00)
[2017-05-19] MEDS ORDERED: DOCUSATE SODIUM 50 MG/SENNA 8.6 MG TAB PO SCH (09:00)
[2017-05-19] MEDS ORDERED: PROPOFOL 200 MG/20 ML AMP IV ONE (09:23)
[2017-05-19] MEDS ORDERED: ePHEDrine/NS 25 MG/5 ML SYR IV ONE (09:23)
[2017-05-19] MEDS ORDERED: ONDANSETRON HCL 4 MG/2 ML VIAL IV PUSH ONE (09:24)
[2017-05-19] MEDS ORDERED: LACTATED RINGER'S 1000 ML INJ 1,000 ML IV ONE (09:24)
[2017-05-19] MEDS ORDERED: PHENYLEPH/NS 1000 MCG/10 ML SYR IV ONE (09:24)
[2017-05-19] MEDS: SODIUM CHLOR 0.9% 1000 ML INJ 1,000 ML IV SCH (09:32)
--- NOTE | 2017-05-19 09:35 | MP ---
cc: LOUIE PHILLIPS DATE OF SURGERY 05/19/2017 ATTENDING PHYSICIAN Louie Phillips DO PREOPERATIVE DIAGNOSIS Acute limb ischemia right lower extremity. POSTOPERATIVE DIAGNOSIS Acute limb ischemia right lower extremity. PROCEDURE Right lower extremity embolectomy with a #3 and 4 embolectomy balloon IV FLUIDS 400 cc of crystalloid. ESTIMATED BLOOD LOSS Less than 50 cc URINE OUTPUT Not calculated SILO ERECTOR Lara Calderon PROCEDURE The patient was prepped and draped from the bilateral groins and the right lower extremity. After the patient was placed under general endotracheal anesthesia, we gave this patient perioperative IV antibiotics. We made an incision with a scalpel and electrocautery and dissected down through the skin and subcutaneous tissue down to the level of the superficial femoral artery. It should be noted that the incision was made from above the inguinal ligament to just below vertically. The patient appeared to have a high bifurcation well above the inguinal ligament. We just mobilized the superficial femoral artery with Vesseloops with Metzenbaum scissors. We did give heparin and her ACT was greater than 300 before performing a transverse arteriotomy in the superficial femoral artery. We initially advanced a 3-0 Librado balloon and then we were not able to expel any clot. We then advanced a #4-0 Librado balloon and pulled a large clot from the groin site. Afterwards, there was a signal in the dorsalis pedis and a bounding palpable posterior tibial artery pulse. The arteriotomy was closed with interrupted four 5-0 interrupted sutures and one 6-0 Prolene suture. We did place Surgicel around the vessel itself and then closed in layers with a 2-0 and 3-0 Vicryl absorbable suture and a 4-0 Monocryl. We did use a Provena Vac at the end of the case. I did inject approximately 20 cc of 0.25% Marcaine with epinephrine into the groin area. The patient tolerated the procedure well and extubated at the end of the case. Louie Phillips DO RM/DJL /9:18 AM /9:25 AM
--- NOTE | 2017-05-19 09:43 | PD.VS.PN ---
Subjective POD #: 0 Procedure(s): embolectomy right popliteal artery Objective Vascular: Palpable PT. Laboratory Laboratory Tests Test 05/19/17 05/19/17 03:15 05:45 White Blood Count 9.0 Red Blood Count 3.99 Hemoglobin 12.1 Hematocrit 36.0 Mean Corpuscular Volume 90.3 Mean Corpuscular Hemoglobin 30.5 Mean Corpuscular Hemoglobin 33.7 Concent Red Cell Distribution Width 13.6 Platelet Count 208 Mean Platelet Volume 7.8 Neutrophils (%) (Auto) 62.6 Lymphocytes (%) (Auto) 21.6 Monocytes (%) (Auto) 10.4 Eosinophils (%) (Auto) 4.5 Basophils (%) (Auto) 0.9 Neutrophils # (Auto) 5.6 Lymphocytes # (Auto) 1.9 Monocytes # (Auto) 0.9 Eosinophils # (Auto) 0.4 Basophils # (Auto) 0.1 CBC Comment DIFF FINAL Differential Comment Prothrombin Time 14.8 Prothromb Time International 1.3 Ratio Activated Partial 26.5 Thromboplast Time Sodium Level 143 Potassium Level 4.0 Chloride Level 105 Carbon Dioxide Level 29.3 Anion Gap 9 Blood Urea Nitrogen 24 Creatinine 0.87 Estimat Glomerular Filtration 62 Rate Random Glucose 118 Calcium Level 8.9 Blood Type A NEGATIVE Antibody Screen NEGATIVE Imaging Last 48 hours Impressions Aorta w/Runoff CTA 05/19/17 0000 Signed Impressions: Service Date/Time: Friday, May 19, 2017 04:55 - CONCLUSION: 1. 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 2. Multiple bilateral renal cysts and hepatic cysts. 3. 2.7 cm right adnexal cyst. Mike Fonseca MD Assessment and Plan Assessment: (1) Arterial occlusion Status: Acute Plan Status post right lower extremity embolectomy. Right foot now with palpable pulse. Spoke with Applications Development Analyst, Dr. Jean Plan for follow continued heparin drip and consultation Dr. Zamora, academic dean. Louie Gtz DO, Louie Colmenares DO May 19, 2017 09:43
[2017-05-19] MEDS ORDERED: ONDANSETRON HCL 4 MG/2 ML VIAL IV PUSH PRN (09:45)
[2017-05-19] MEDS ORDERED: DEXTROSE 50% IN WATER 50 ML VIAL(D50) IV PUSH PRN (09:45)
[2017-05-19] MEDS ORDERED: MORPHINE SULFATE 4 MG/ML INJ IV PUSH PRN ×2 (09:45→18:00)
[2017-05-19] MEDS ORDERED: ZOLPIDEM TARTRATE 5 MG TAB PO PRN (09:45)
[2017-05-19] MEDS ORDERED: GLUCAGON 1 MG/ML VIAL OTHER PRN (09:45)
[2017-05-19] MEDS ORDERED: Post-op Orders (for Pharmacy) MISC OTHER ONE (09:45)
[2017-05-19] MEDS ORDERED: DO NOT ADM ANY ANTICOAGULANT DRUGS PRN (09:50)
[2017-05-19] MEDS ORDERED: HEPARIN SODIUM - IV 10,000 UNITS/10 ML VIAL IV PRN ×2 (11:15)
[2017-05-19] MEDS: INSULIN NovoLIN REGULAR SUPPLEMENTAL SCALE SQ SCH ×2 (12:00→17:49)
--- NOTE | 2017-05-19 13:26 | PD.CONS ---
[facility] Critical Care Medicine Consult Requested By Dr. Gtz Reason for Consult S/P Embolectomy RLE Primary Care Physician No Primary Care Physician History of Present Illness Is an 87-year-old female that is status post embolectomy right lower extremity. The patient has a history of chronic atrial fibrillation, and is normally on Coumadin therapy. The patient recently underwent a kyphoplasty and Coumadin therapy was held. The patient subsequently woke up with a bluish cold leg and extreme pain and presented to the hospital. The patient in emergently underwent a right lower extremity embolectomy and currently is on a heparin infusion. The patient personal shell coremaker is Dr. Gauthier, which has been consulted and a TTE has been ordered. History PFSH Past Medical History Hx Anticoagulant Therapy: Yes (Warfarin) Arthritis: Yes Blood Disorders: No Anxiety: No Depression: No Heart Rhythm Problems: Yes (ATRIAL FIBRILLATION) Cancer: No Cardiac Catheterization: No Cardiovascular Problems: Yes (CHF, Cardiomyopathy, HTN, A-fib) High Cholesterol: Yes Chest Pain: No Congestive Heart Failure: No Cerebrovascular Accident: No Diabetes: No Diminished Hearing: No Endocrine: Yes Gastrointestinal Disorders: Yes GERD: No Genitourinary: No Headaches: No Hiatal Hernia: No Heparin Induced Thrombocytopen: No Hypertension: Yes Immune Disorder: No Implanted Vascular Access Dvce: Yes Musculoskeletal: Yes Neurologic: Yes Psychiatric: No Reproductive: Yes Respiratory: No Immunizations Current: Yes Migraines: No Seizures: No Sleep Apnea: No Thyroid Disease: Yes (Hypothyroidism ) Tetanus Vaccination: > 5 Years Influenza Vaccination: Yes ?: Not Past Surgical History Body Medical Devices: MCKAYLA EYE LENS; SCREWS RIGHT HIP, RIGHT HIP REPLACEMENT Coronary Artery Bypass Graft: No Eye Surgery: Yes (BILATERAL CATARACT SX) Hysterectomy: Yes Other Surgery: Yes (DETACHED RETINA RIGHT EYE 1993) Family History Family Myocardial Infarction: No Social History Alcohol Use: No Tobacco Use: No Substance Use: No Review of Systems Musculoskeletal: COMPLAINS OF: Back pain (S/P right hip arthroplasty , and recent kyphoplasty) Past Family Social History Allergies: Coded Allergies: No Known Allergies (Verified , 05/19/17) Physical Exam Vital Signs Vital Signs Date Time Temp Pulse Resp B/P Pulse Ox O2 Delivery O2 Flow Rate FiO2 05/19/17 11:30 79 16 144/63 96 05/19/17 11:20 97.7 71 16 145/62 97 05/19/17 11:00 66 16 134/62 98 Nasal Cannula 2 05/19/17 10:45 69 16 128/61 97 Nasal Cannula 2 05/19/17 10:30 67 16 115/56 98 Nasal Cannula 2 05/19/17 10:15 65 16 129/59 96 Nasal Cannula 2 05/19/17 10:00 75 16 122/58 98 Nasal Cannula 2 05/19/17 09:45 97.8 81 16 137/64 97 Nasal Cannula 2 05/19/17 07:50 81 17 159/82 98 05/19/17 05:37 84 16 161/79 97 Room Air 05/19/17 03:19 18 05/19/17 02:19 97.9 78 16 178/86 97 Room Air Physical Exam GENERAL: Pleasant well-nourished well-developed elderly female in mild distress postoperatively secondary to pain VAS scale 3/10 SKIN: Warm and dry. HEAD: Atraumatic. Normocephalic. EYES: Pupils equal and round. No scleral icterus. No injection or drainage. ENT: No nasal bleeding or discharge. Mucous membranes pink and moist. Uvula midline NECK: Trachea midline. No JVD. CARDIOVASCULAR: Normal rate, regular rhythm. RESPIRATORY: No accessory muscle use. Clear to auscultation. Breath sounds equal bilaterally. GASTROINTESTINAL: Abdomen soft, non-tender, nondistended. No guarding. MUSCULOSKELETAL: Extremities without clubbing, cyanosis, or edema. No obvious deformities. Right groin protein minimal serosanguineous drainage noted NEUROLOGICAL: Awake and alert. RASS 0. No gross focal/sensory deficits. Follows commands in all 4 extremities. Laboratory Laboratory Tests Test 05/19/17 05/19/17 03:15 05:45 White Blood Count 9.0 Red Blood Count 3.99 Hemoglobin 12.1 Hematocrit 36.0 Mean Corpuscular Volume 90.3 Mean Corpuscular Hemoglobin 30.5 Mean Corpuscular Hemoglobin 33.7 Concent Red Cell Distribution Width 13.6 Platelet Count 208 Mean Platelet Volume 7.8 Neutrophils (%) (Auto) 62.6 Lymphocytes (%) (Auto) 21.6 Monocytes (%) (Auto) 10.4 Eosinophils (%) (Auto) 4.5 Basophils (%) (Auto) 0.9 Neutrophils # (Auto) 5.6 Lymphocytes # (Auto) 1.9 Monocytes # (Auto) 0.9 Eosinophils # (Auto) 0.4 Basophils # (Auto) 0.1 CBC Comment DIFF FINAL Differential Comment Prothrombin Time 14.8 Prothromb Time International 1.3 Ratio Activated Partial 26.5 Thromboplast Time Sodium Level 143 Potassium Level 4.0 Chloride Level 105 Carbon Dioxide Level 29.3 Anion Gap 9 Blood Urea Nitrogen 24 Creatinine 0.87 Estimat Glomerular Filtration 62 Rate Random Glucose 118 Calcium Level 8.9 Blood Type A NEGATIVE Antibody Screen NEGATIVE Result Diagram: 05/19/17 0315 05/19/175 Imaging Last Impressions Aorta w/Runoff CTA 05/19/17 0000 Signed Impressions: Service Date/Time: Friday, May 19, 2017 04:55 - CONCLUSION: 1. 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 2. Multiple bilateral renal cysts and hepatic cysts. 3. 2.7 cm right adnexal cyst. Mike Fonseca MD Septic Shock Reassessment Peripheral Pulses: Weak Right Dorsalis Pedis (monophasic signal by dopppler) Bounding Right Radial Bounding Left Radial Bounding Left Dorsalis Pedis Assessment and Plan Assessment and Plan Assessment Acute ischemic right lower extremity Status post right groin embolectomy Chronic atrial fibrillation rate controlled Chronic anticoagulation-previously on hold for kyphoplasty Postoperative pain Plan Neurologic: Ofirmev 1 g every 6 hours when necessary 24 hours for pain scale 7-10 Monitor right lower extremity-pain, pallor,pulse (by doppler) paresthesia and compartment syndrome Intake sleep hygiene-Ambien 5 mg at bedtime for insomnia Respiratory: Maintain O2 saturation greater than 92%, may supplement with O2 14 L/m via nasal cannula When patient semi-recumbent initiate incentive spirometry every hour while awake Cardiovascular: Obtain TTE Consult cardiologyDr. Gauthier patient's personal physician Currently on heparin infusion monitor aPTT Continue metoprolol ,pravastatin, ASA in a.m. Renal: Insert Ortiz -- Strict I/Os FEN/GI: Monitor BMP Bowel regimen Plan for nausea Heart healthy diet Heme/ID: Monitor PTT,CBC Endocrine: Glucose monitoring per ICU protocol -- SSI Prophylaxis: GI Prophylaxis Protonix DVT Prophylaxis -- SCDs Patient currently on heparin infusion Lines: Peripheral IVs Dispo: Level 3 Cardiology consulted, TTE pending. APTT, monitoring Discussed with GUIDANCE COUNSELOR at bedside Code Status Full Discussed Condition With Patient and GUIDANCE COUNSELOR at bedside Regina Alvarez MD May 19, 2017 13:26
[2017-05-19] MEDS ORDERED: ACETAMINOPHEN 1000 MG/100 ML VIAL IV PRN (13:45)
[2017-05-19 14:08] LABS: APTT (PATIENT) GREATER THAN 277.5 SEC (24.3-30.1)
--- NOTE | 2017-05-19 16:35 | ECHRPT ---
Indication: A fib/flutter CONCLUSIONS The left ventricular systolic function is hyperdynamic with an estimated ejection fraction in the ra nge of 70- 75%. Mild concentric left ventricular hypertrophy. Mild mitral valve regurgitation. There is mild tricuspid valve regurgitation. BP: / HR: Rhythm: MEASUREMENTS (Male / Female) Normal Values Technical Quality:Fair 2D ECHO LV Diastolic Diameter PLAX 4.4 cm 4.2 - 5.9 / 3.9 - 5.3 cm LV Systolic Diameter PLAX 2.8 cm IVS Diastolic Thickness 1.5 cm 0.6 - 1.0 / 0.6 - 0.9 cm LVPW Diastolic Thickness 1.4 cm 0.6 - 1.0 / 0.6 - 0.9 cm LV Relative Wall Thickness 0.6 RV Internal Dim ED PLAX 3.0 cm M-MODE Aortic Root Diameter MM 2.9 cm LA Systolic Diameter MM 5.2 cm LA Ao Ratio MM 1.8 AV Cusp Separation MM 2.0 cm DOPPLER LV E' Lateral Velocity 8.9 cm/s LV E' Septal Velocity 5.9 cm/s TR Peak Velocity 305.0 cm/s TR Peak Gradient 37.2 mmHg FINDINGS LEFT VENTRICLE Normal left ventricular size. Mild concentric left ventricular hypertrophy. The left ventricular systolic function is hyperdynamic with an estimated ejection fraction in the ra nge of 70- 75% No regional wall motion abnormalities are present. RIGHT VENTRICLE The right ventricular size is normal. The right ventricular systoilc function is normal. LEFT ATRIUM The left atrial size is moderately dilated. RIGHT ATRIUM The right atrial size is [id number]-vg-hvyvqevwem dilated. ATRIAL SEPTUM Normal atrial septal thickness. MITRAL VALVE Structurally normal mitral valve. Mild mitral valve regurgitation. AORTIC VALVE Trileaflet aortic valve. No aortic valve stenosis or regurgitation. TRICUSPID VALVE Structurally normal tricuspid valve. There is mild tricuspid valve regurgitation. PULMONARY VALVE The pulmonary valve is not well visualized. PERICARDIUM No pericardial effusion. Philipp Charlton DO (Electronically Signed) Final Date:19 May 2017 16:34
[2017-05-19] MEDS: oxyCODONE/ACETAMINOPHEN 5 MG/325 MG TAB PO PRN (17:48)
[2017-05-19] MEDS: ceFAZolin 2 GM PREMIX 50 ML IV SCH (17:48)
[2017-05-19 18:37] LABS: HEMATOCRIT 28.9 % (35.0-46.0); MEAN CELL VOLUME 91.1 FL (80.0-100.0); MEAN CORPUSCULAR HEMOGLOBIN 31.1 PG (27.0-34.0); MEAN CORPUSCULAR HGB CONC 34.1 % (32.0-36.0); PLATELET COUNT 176 TH/MM3 (150-450); RED BLOOD COUNT 3.17 MIL/MM3 (4.00-5.30); RED CELL DISTRIBUTION WIDTH 13.8 % (11.6-17.2); REVIEW FLAG FINAL; WHITE BLOOD COUNT 8.7 TH/MM3 (4.0-11.0)
[2017-05-19 18:44] LABS: APTT (PATIENT) 31.1 SEC (24.3-30.1)
--- NOTE | 2017-05-19 20:43 | HHI.HP ---
[facility] Service [facility] Primary Care Physician No Primary Care Physician Admission Diagnosis RLE Arterial Occlusion Diagnoses: Travel History International Travel<30 Days: No Contact w/Intl Traveler <30 Da: No Traveled to Known Affected Are: No History of Present Illness Mrs. Love is an 87-year-old female. Recently she had a kyphoplasty. For kyphoplasty she had to come off her Coumadin. She has resumed this but is not yet therapeutic. Last night she had an onset of a cold right lower extremity which progressed into a painful cold right foot. She came into the emergency room and was diagnosed with an arterial obstruction. She was rushed to have an emergent vascular procedure which was beneficial. Embolectomy was successful. I am seeing her after this procedure. She has no further complaints of right lower extremity pain. The limb is now warm. Her baseline medical conditions are atrial fibrillation and hypertension. No chest pain. No headaches. Review of Systems Constitutional: DENIES: Fever, Chills, Change in appetite Endocrine: DENIES: Heat/cold intolerance Eyes: DENIES: Blurred vision, Eye pain Ears, nose, mouth, throat: DENIES: Hearing loss, Vertigo, Ear Pain, Epistaxis Respiratory: DENIES: Apneas, Cough, Wheezing, Shortness of breath Cardiovascular: DENIES: Chest pain, Palpitations, Syncope Gastrointestinal: DENIES: Abdominal pain, Black stools, Bloody stools Musculoskeletal: DENIES: Joint pain, Muscle aches, Stiffness, Back pain Integumentary: DENIES: Abnormal pigmentation, Pruritus, Rash Hematologic/lymphatic: DENIES: Bruising Immunologic/allergic: DENIES: Eczema Neurologic: DENIES: Abnormal gait Psychiatric: DENIES: Anxiety, Confusion Past Family Social History Past Medical History Hypertension Atrial fibrillation Past Surgical History Right hip fracture Retina surgery Right hip replacement Reported Medications Reported Meds & Active Scripts Active Lortab (Hydrocodone-Acetaminophen) 5-325 Mg Tab 1 Tab PO Q6H PRN Reported Tramadol (Tramadol HCl) 50 Mg Tab 50 Mg PO Q8H PRN Coumadin (Warfarin) 4 Mg Tab 4 Mg PO DAILY Metoprolol Tartrate 50 Mg Tab 50 Mg PO DAILY Lovastatin 20 Mg Tab 20 Mg PO DAILY Levoxyl (Levothyroxine Sodium) 100 Mcg Tab 100 Mcg PO DAILY Hydrochlorothiazide 12.5 Mg Cap 12.5 Mg PO DAILY Norvasc (Amlodipine Besylate) 10 Mg Tab 10 Mg PO BID Fosamax (Alendronate Sodium) 70 Mg Tab 70 Mg PO Q7D Allergies: Coded Allergies: No Known Allergies (Verified , 05/19/17) Active Ordered Medications Administered Medications Medications (Trade) Dose Ordered Sig/Dipti Route PRN Reason Start Time Stop Time Status Last Admin Dose Admin Oxycodone/ Acetaminophen 1 tab 1 tab Q4H PRN PO PAIN SCALE 3 TO 5 05/19/17 09:45 05/19/17 17:48 Cefazolin Sodium/ Dextrose (Ancef 2 Gm Premix) 50 ml @ 100 mls/hr Q8H IV 05/19/17 16:00 05/20/17 08:29 05/19/17 17:48 Family History One of her grandfathers had a clot in his heart Mother had Alzheimer's disease Father had some coronary artery disease without MS Sister of breast cancer Social History No smoking Rare alcohol use No drug abuse Physical Exam Vital Signs Vital Signs Date Time Temp Pulse Resp B/P Pulse Ox O2 Delivery O2 Flow Rate FiO2 05/19/17 19:04 18 05/19/17 15:00 97 Nasal Cannula 1.00 05/19/17 15:00 78 05/19/17 13:51 18 05/19/17 12:00 78 05/19/17 12:00 97 Nasal Cannula 1.00 05/19/17 11:30 79 16 144/63 96 05/19/17 11:20 97.7 71 16 145/62 97 05/19/17 11:00 66 16 134/62 98 Nasal Cannula 2 05/19/17 10:45 69 16 128/61 97 Nasal Cannula 2 05/19/17 10:30 67 16 115/56 98 Nasal Cannula 2 05/19/17 10:15 65 16 129/59 96 Nasal Cannula 2 05/19/17 10:00 75 16 122/58 98 Nasal Cannula 2 05/19/17 09:45 97.8 81 16 137/64 97 Nasal Cannula 2 05/19/17 07:50 81 17 159/82 98 05/19/17 05:37 84 16 161/79 97 Room Air 05/19/17 03:19 18 05/19/17 02:19 97.9 78 16 178/86 97 Room Air Physical Exam GENERAL: NAD, A&Ox3 HEAD: Normocephalic. NECK: Supple, trachea midline. No lymphadenopathy. EYES: No scleral icterus. No injection or drainage. CARDIOVASCULAR: Regular rate and rhythm without murmurs, gallops, or rubs. RESPIRATORY: Breath sounds equal bilaterally. No accessory muscle use. GASTROINTESTINAL: Abdomen soft, non-tender, nondistended. MUSCULOSKELETAL: No cyanosis, or edema. SKIN: Warm and dry. Pulses present at right leg. Vacuum tube in place and right groin. NEURO: No focal neurological deficitis. Laboratory Laboratory Tests Test 05/19/17 05/19/17 05/19/17 05/19/17 03:15 05:45 12:50 18:00 White Blood Count 9.0 8.7 Red Blood Count 3.99 3.17 Hemoglobin 12.1 9.9 Hematocrit 36.0 28.9 Mean Corpuscular Volume 90.3 91.1 Mean Corpuscular Hemoglobin 30.5 31.1 Mean Corpuscular Hemoglobin 33.7 34.1 Concent Red Cell Distribution Width 13.6 13.8 Platelet Count 208 176 Mean Platelet Volume 7.8 8.0 Neutrophils (%) (Auto) 62.6 Lymphocytes (%) (Auto) 21.6 Monocytes (%) (Auto) 10.4 Eosinophils (%) (Auto) 4.5 Basophils (%) (Auto) 0.9 Neutrophils # (Auto) 5.6 Lymphocytes # (Auto) 1.9 Monocytes # (Auto) 0.9 Eosinophils # (Auto) 0.4 Basophils # (Auto) 0.1 CBC Comment DIFF FINAL Differential Comment Prothrombin Time 14.8 Prothromb Time International 1.3 Ratio Activated Partial 26.5 GREATER THAN 31.1 Thromboplast Time 277.5 Sodium Level 143 Potassium Level 4.0 Chloride Level 105 Carbon Dioxide Level 29.3 Anion Gap 9 Blood Urea Nitrogen 24 Creatinine 0.87 Estimat Glomerular Filtration 62 Rate Random Glucose 118 Calcium Level 8.9 Blood Type A NEGATIVE Antibody Screen NEGATIVE Result Diagram: 05/19/17 1800 05/19/17314 Assessment and Plan Problem List: (1) Arterial occlusion ICD Code: I74.9 Status: Acute (2) A-fib ICD Code: I48.91 Status: Chronic (3) Hypertension ICD Code: I10 Status: Acute Assessment and Plan Assessment and plan 87-year-old female admitted secondary to right lower extremity arterial occlusion Right lower extremity arterial occlusion Likely etiology is embolism, possibly related to A. 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 Continue heparin drip Consider starting Coumadin 1-2 days once stability is determined Use heparin drip to bridge to therapeutic Coumadin As needed pain treatments Atrial fibrillation Plan to resume Coumadin Follow on telemetry Continue metoprolol Hypertension Resume baseline treatment Follow blood pressures Presently blood pressure is controlled Metoprolol resumed As back amlodipine and hydrochlorothiazide if needed Hypothyroidism Continue Synthroid DVT prophylaxis Patient is presently on heparin drip Physician Certification 2 Midnight Certification Type: Admission for Inpatient Services Order for Inpatient Services The services are ordered in accordance with Medicare regulations or non- Medicare payer requirements, as applicable. In the case of services not specified as inpatient-only, they are appropriately provided as inpatient services in accordance with the 2-midnight benchmark. Estimated LOS (days): 3 days is the estimated time the patient will need to remain in the hospital, assuming treatment plan goals are met and no additional complications. Post-Hospital Plan: Home Tim Encarnacion MD May 19, 2017 20:43
[2017-05-19] MEDS: PANTOPRAZOLE SOD 40 MG DELAYED RELEASE TAB PO SCH (20:55)
[2017-05-19] MEDS: oxyCODONE/ACETAMINOPHEN 10 MG/325 MG TAB PO PRN (20:58)
[2017-05-19] MEDS: DOCUSATE CALCIUM 240 MG CAP PO SCH (21:00)
--- NOTE | 2017-05-19 22:19 | MB ---
cc: PHILIPP JACKSON DO DATE OF CONSULTATION 05/19/17 REASON FOR CONSULTATION Right lower extremity arterial occlusion, off Coumadin. HISTORY OF PRESENT ILLNESS Laxmi Cervantes is a pleasant 87-year-old female who sees my partner, Dr. Jan Gauthier, in the office and recently underwent a kyphoplasty. She was originally told to come off her Coumadin on May 07, 2017 and had surgery on May 11, 2017. She resumed her Coumadin on May 14, 2017. On the morning of May 19, 2017 she woke up at 1:00 a.m. with a cold sensation in the right lower extremity. She had extreme pain in her right calf with ambulation. She presented to the emergency room and was found to have a cold foot with discoloration. Because of acute limb ischemia of the right lower extremity she was taken by vascular surgery and underwent an embolectomy. Currently, she is resting comfortably in the ICU without chest pain, shortness of breath. She denies any pain in her right lower extremity. PAST MEDICAL HISTORY 1. Hypertension. 2. Atrial fibrillation. PAST SURGICAL HISTORY 1. Right lower extremity embolectomy (May 19, 2017). 2. Right hip surgery. 3. Retina surgery. 4. Recent kyphoplasty. ALLERGIES NO KNOWN DRUG ALLERGIES. MEDICATIONS 1. Coumadin 4 milligrams daily. 2. Metoprolol tartrate 50 milligrams daily. 3. Fosamax 70 milligrams weekly. 4. Norvasc 10 milligrams b.i.d. 5. Lovastatin 20 milligrams daily. 6. Lortab 5/325 every 6 hours as needed for pain. 7. Tramadol 50 milligrams every 8 hours as needed for pain. 8. Hydrochlorothiazide 12.5 milligrams daily. 9. Levothyroxine 100 micrograms daily. FAMILY HISTORY Mother had Alzheimer's disease. Father had coronary artery disease. Sister of breast cancer. SOCIAL HISTORY Denies tobacco, alcohol or drug abuse. REVIEW OF SYSTEMS 14-systems were reviewed including osteopathic as above, pertinent positives and negatives above otherwise negative. PHYSICAL EXAMINATION VITAL SIGNS: Temperature 97.7, heart rate 79, blood pressure 144/63, respirations 16, pulse ox 96% on 1 liter. GENERAL: In general, the patient appears well in no acute distress, alert, awake and oriented x3. HEENT: Extraocular muscles intact. Mucous membranes moist. NECK: Supple. No JVD at 45 degrees. No carotid bruits heard bilaterally. Carotid upstroke is brisk in nature. HEART: Heart is regular rate and rhythm. Positive first and second heart sounds with no noted murmurs, gallops or rubs. LUNGS: Clear to auscultation bilaterally. No wheezes, rales or rhonchi. ABDOMEN: Soft, nontender, nondistended. No organomegaly noted. EXTREMITIES: Right groin has a wound VAC from recent surgery. Right and left extremities are both warm with sensation and motor skills. DP and PT pulses are palpable bilaterally. NEUROLOGICALLY: No focal deficits. SKIN: Warm, dry and intact. OSTEOPATHIC: No kyphoscoliosis, lordosis or paraspinal tender points. LABORATORY FINDINGS Hemoglobin 12.1, hematocrit 36.0, platelets 208. INR 1.3. Potassium 4.0, BUN 24, creatinine 0.87. IMPRESSION 1. Acute ischemic right lower extremity status post embolectomy postop day #0. 2. Atrial fibrillation which is currently rate controlled, on Coumadin for anticoagulation. 3. Recent kyphoplasty requiring the patient to be off Coumadin. RECOMMENDATIONS 1. Ms. Cervantes appears to have an arterial occlusion which was treated with an embolectomy and this is most likely due to her atrial fibrillation and being off Coumadin. On arrival her INR was 1.3. 2. Post embolectomy it appears that she has sensation and motor function of her right lower extremity. 3. She will continue on a heparin drip per vascular surgery recommendation and most likely placed back on Coumadin upon discharge. 4. Upon discharge she will follow up with Dr. Gauthier. Thank you for allowing me to see Laxmi Cervantes. If there are any questions please do not hesitate to call. Philipp Jackson DO VGP/EO /9:21 PM /10:02 PM
[2017-05-20] VITALS (10 sets, daily range): BP systolic 118–150; BP diastolic 55–70; PULSE 71–101; RESP 15–22; TEMP 97.9–98.6; O2SAT 93–95
[2017-05-20] MEDS: ceFAZolin 2 GM PREMIX 50 ML IV SCH ×2 (01:22→09:22)
[2017-05-20 04:33] LABS: BASOPHIL # 0.1 TH/MM3 (0-0.2); EOSINOPHIL # 0.3 TH/MM3 (0-0.4); EOSINOPHIL % 2.7 % (0.0-4.0); HEMATOCRIT 29.6 % (35.0-46.0); HEMO FLAGS DIFF FINAL; LYMPH % 17.2 % (9.0-44.0); LYMPHOCYTE # 1.7 TH/MM3 (1.0-4.8); MEAN CELL VOLUME 91.4 FL (80.0-100.0); MEAN CORPUSCULAR HEMOGLOBIN 30.2 PG (27.0-34.0); MEAN CORPUSCULAR HGB CONC 33.1 % (32.0-36.0); MONO % 9.6 % (0.0-8.0); NEUT % 69.5 % (16.0-70.0); PLATELET COUNT 201 TH/MM3 (150-450); RED BLOOD COUNT 3.24 MIL/MM3 (4.00-5.30); WHITE BLOOD COUNT 10.1 TH/MM3 (4.0-11.0)
[2017-05-20 04:47] LABS: INTERNATIONAL NORMALIZED RATIO 1.6 RATIO; PROTHROMBIN TIME - PATIENT 17.9 SEC (9.8-11.6)
[2017-05-20] MEDS: SODIUM CHLOR 0.9% 1000 ML INJ 1,000 ML IV SCH (04:59)
[2017-05-20] MEDS: LEVOTHYROXINE SODIUM 100 MCG TAB PO SCH (05:19)
[2017-05-20 05:31] LABS: ALKALINE PHOSPHATASE 59 U/L (45-117); ALT (GPT) 11 U/L (10-53); ANION GAP 7 MEQ/L (5-15); AST (GOT) 11 U/L (15-37); BICARBONATE 28.4 MEQ/L (21.0-32.0); BLOOD UREA NITROGEN 13 MG/DL (7-18); CHLORIDE 108 MEQ/L (98-107); GLOMERULAR FILTRATION RATE 72 ML/MIN (>89); POTASSIUM 3.7 MEQ/L (3.5-5.1); SODIUM (NA) 143 MEQ/L (136-145); TOTAL BILIRUBIN ADULT 0.3 MG/DL (0.2-1.0)
[2017-05-20 05:51] LABS: APTT (PATIENT) 149.4 SEC (24.3-30.1)
[2017-05-20] MEDS: INSULIN NovoLIN REGULAR SUPPLEMENTAL SCALE SQ SCH ×4 (06:00→16:50)
[2017-05-20] MEDS: oxyCODONE/ACETAMINOPHEN 10 MG/325 MG TAB PO PRN ×3 (06:30→20:06)
[2017-05-20] MEDS: SODIUM CHLORIDE 0.9% FLUSH 10 ML FLUSH IV FLUSH SCH ×2 (09:20→21:00)
[2017-05-20] MEDS: METOPROLOL TARTRATE 50 MG TAB PO SCH (09:21)
[2017-05-20] MEDS: PRAVASTATIN SOD 20 MG TAB PO SCH (09:22)
[2017-05-20] MEDS: ASPIRIN EC 325 MG TABEC PO SCH (09:22)
--- NOTE | 2017-05-20 10:47 | HHI.CCPN ---
Subjective Remarks/Hospital Course Is an 87-year-old female that is status post embolectomy right lower extremity. The patient has a history of chronic atrial fibrillation, and is normally on Coumadin therapy. The patient recently underwent a kyphoplasty and Coumadin therapy was held. The patient subsequently woke up with a bluish cold leg and extreme pain and presented to the hospital. The patient in emergently underwent a right lower extremity embolectomy and currently is on a heparin infusion. The patient personal construction technician is Dr. Gauthier, which has been consulted and a TTE has been ordered. Subjective: 05/20: No acute events overnight. Resolution of pain of left lower extremity .The patient was seen by cardiology, echo performed see results below. The patient continues on heparin currently supratherapeutic aPTT1 49, it is on hold follow-up aPTT pending. The patient is transitioning to Coumadin prior to discharge from hospital. Objective Vital Signs Date Time Temp Pulse Resp B/P Pulse Ox O2 Delivery O2 Flow Rate FiO2 05/20/17 05:00 98.6 78 22 95 05/20/17 03:00 Nasal Cannula 1.00 05/20/17 03:00 133/63 Intake and Output 05/19/17 05/19/17 05/20/17 08:00 16:00 00:00 Intake Total 1326 ml Output Total 580 ml Balance 746 ml Result Diagram: 05/20/17 0352 05/20/17 0352 Imaging Last Impressions Aorta w/Runoff CTA 05/19/17 0000 Signed Impressions: Service Date/Time: Friday, May 19, 2017 04:55 - CONCLUSION: 1. 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 2. Multiple bilateral renal cysts and hepatic cysts. 3. 2.7 cm right adnexal cyst. Mike Fonseca MD Objective Remarks GENERAL: Pleasant well-nourished well-developed elderly female in no apparent distress SKIN: Warm and dry. HEAD: Atraumatic. Normocephalic. EYES: Pupils equal and round. No scleral icterus. No injection or drainage. ENT: No nasal bleeding or discharge. Mucous membranes pink and moist. Uvula midline NECK: Trachea midline. No JVD. CARDIOVASCULAR: Normal rate, regular rhythm. RESPIRATORY: No accessory muscle use. Clear to auscultation. Breath sounds equal bilaterally. GASTROINTESTINAL: Abdomen soft, non-tender, nondistended. No guarding. MUSCULOSKELETAL: Extremities without clubbing, cyanosis, or edema. No obvious deformities. Right groin provena minimal serosanguineous drainage noted. Left lower extremity soft brisk capillary refill, intact sensation NEUROLOGICAL: Awake and alert. RASS 0. No gross focal/sensory deficits. Follows commands in all 4 extremities. A/P Assessment and Plan Assessment Acute ischemic right lower extremity Status post right groin embolectomy Chronic atrial fibrillation rate controlled Chronic anticoagulation-previously on hold for kyphoplasty Postoperative pain Plan Neurologic: Ofirmev 1 g every 6 hours when necessary 24 hours for pain scale 7-10, will repeat dosing today 2/2 chronic back pain Monitor right lower extremity-pain, pallor,pulse (by doppler) paresthesia and compartment syndrome Intake sleep hygiene-Ambien 5 mg at bedtime for insomnia Respiratory: Maintain O2 saturation greater than 92%, may supplement with O2 14 L/m via nasal cannula. Wean as tolerated Incentive spirometry Cardiovascular: 05/20- echo EF 7075% mild MV regurgitation, mild TV regurgitation, LAE Cardiologyseen by Dr. Charlton , recommendation to transition to Coumadin prior to discharge home and follow-up with Dr. Gauthier patient's personal physician Currently on heparin infusion monitor aPTT-transitioned to Coumadin, plan for discharge per primary team with INR > 2.0 Continue metoprolol ,pravastatin, ASA Renal: Discontinue Ortiz-outpatient up out of bed to chair -- Strict I/Os FEN/GI: Monitor BMP Bowel regimen Zofran for nausea Heart healthy diet D/C IVF's of bed on toleration of heart healthy diet Heme/ID: Monitor PTT,CBC Endocrine: Glucose monitoring per ICU protocol -- SSI Prophylaxis: GI Prophylaxis Protonix DVT Prophylaxis -- SCDs Patient currently on heparin infusion, aPTT monitoring per protocol MSK: PT evaluate and treat OOB to chair DP pulses improved now right DP now palpable, biphasic Doppler signal, brisk capillary refill Lines: Peripheral IVs Dispo: Level [address] Charlton, and [employer] MANAGER at bedside. Coumadin dosing initiated , will monitor INR with plans for discharge when it reaches therapeutic range. Thank you for participation in the care of this patient, critical care medicine will sign off. Physician Regina Reid MD May 20, 2017 10:47
[2017-05-20] MEDS ORDERED: ACETAMINOPHEN 1000 MG/100 ML VIAL IV PRN (11:00)
--- NOTE | 2017-05-20 11:14 | PD.VS.PN ---
Subjective POD #: 1 Procedure(s): embolectomy right popliteal artery Subjective/Hospital Course doing well, foot ok overall looks great Objective Vitals/I&O Date Time Temp Pulse Resp B/P Pulse Ox O2 Delivery O2 Flow Rate FiO2 05/20/17 05:00 98.6 78 22 95 05/20/17 04:20 18 05/20/17 03:00 89 05/20/17 03:00 93 Nasal Cannula 1.00 05/20/17 03:00 97.9 89 18 133/63 93 05/19/17 23:01 18 05/19/17 23:00 98.5 81 18 135/68 94 05/19/17 23:00 94 Nasal Cannula 1.00 05/19/17 23:00 81 05/19/17 22:00 20 05/19/17 21:13 98 Nasal Cannula 1.00 05/19/17 19:04 18 05/19/17 19:00 86 05/19/17 19:00 95 Nasal Cannula 1.00 05/19/17 19:00 98.3 86 20 131/68 95 05/19/17 15:00 97 Nasal Cannula 1.00 05/19/17 15:00 78 05/19/17 13:51 18 05/19/17 12:00 78 05/19/17 12:00 97 Nasal Cannula 1.00 05/19/17 11:30 79 16 144/63 96 05/19/17 11:20 97.7 71 16 145/62 97 05/20/17 05/20/17 05/20/17 07:00 15:00 23:00 Intake Total 1946 ml Output Total 310 ml Balance 1636 ml Exam: R groin full but more c/w post-surgical edema and not defined hematoma R foot warm Pulses: palpable R PT Laboratory Laboratory Tests Test 05/19/17 05/19/17 05/20/17 05/20/17 12:50 18:00 03:52 09:38 Activated Partial GREATER THAN 31.1 149.4 34.0 Thromboplast Time 277.5 White Blood Count 8.7 10.1 Red Blood Count 3.17 3.24 Hemoglobin 9.9 9.8 Hematocrit 28.9 29.6 Mean Corpuscular Volume 91.1 91.4 Mean Corpuscular Hemoglobin 31.1 30.2 Mean Corpuscular Hemoglobin 34.1 33.1 Concent Red Cell Distribution Width 13.8 14.0 Platelet Count 176 201 Mean Platelet Volume 8.0 7.7 Neutrophils (%) (Auto) 69.5 Lymphocytes (%) (Auto) 17.2 Monocytes (%) (Auto) 9.6 Eosinophils (%) (Auto) 2.7 Basophils (%) (Auto) 1.0 Neutrophils # (Auto) 7.0 Lymphocytes # (Auto) 1.7 Monocytes # (Auto) 1.0 Eosinophils # (Auto) 0.3 Basophils # (Auto) 0.1 CBC Comment DIFF FINAL Differential Comment Prothrombin Time 17.9 Prothromb Time International 1.6 Ratio Sodium Level 143 Potassium Level 3.7 Chloride Level 108 Carbon Dioxide Level 28.4 Anion Gap 7 Blood Urea Nitrogen 13 Creatinine 0.76 Estimat Glomerular Filtration 72 Rate Random Glucose 125 Calcium Level 7.9 Total Bilirubin 0.3 Aspartate Amino Transf 11 (AST/SGOT) Alanine Aminotransferase 11 (ALT/SGPT) Alkaline Phosphatase 59 Total Protein 5.9 Albumin 2.7 Assessment and Plan Assessment: (1) Arterial occlusion Status: Acute Plan Status post right lower extremity embolectomy. Right foot now with palpable pulse. 1. Cont hep gtt and start coumadin. Once INR>2, will d/c coumadin 2. OOB TC ad jessie 3. Reg diet 4. Ortiz out when mobility ok Suman Osei MD May 20, 2017 11:14
--- NOTE | 2017-05-20 13:03 | PD.CARD.PN ---
Subjective Subjective Remarks No events overnight Feels well Objective Medications Current Medications Medications (Trade) Dose Ordered Sig/Dipti Route Start Time Stop Time Status Last Admin (NS Flush) 2 ml UNSCH PRN IV FLUSH 05/19/17 05:30 (NS Flush) 2 ml BID IV FLUSH 05/19/17 09:00 05/20/17 09:20 (Zofran Inj) 4 mg Q6H PRN IVP 05/19/17 05:30 (Tylenol) 650 mg Q6H PRN PO 05/19/17 05:30 (Senokot) 17.2 mg Q12H PRN PO 05/19/17 05:30 (Lactulose Liq) 30 ml DAILY PRN PO 05/19/17 05:30 (Pravachol) 20 mg DAILY PO 05/19/17 09:00 05/20/17 09:22 (Lopressor) 50 mg DAILY PO 05/19/17 09:00 05/20/17 09:21 (Ecotrin Ec) 325 mg DAILY PO 05/20/17 09:00 05/20/17 09:22 (Zofran Inj) 4 mg Q6H PRN IV PUSH 05/19/17 09:45 (Protonix) 40 mg HS PO 05/19/17 21:00 05/19/17 20:55 (Tylenol) 650 mg Q4H PRN PO 05/19/17 09:45 (Milk Of Magnesia Liq) 30 ml DAILY PRN PO 05/19/17 09:45 (Ambien) 5 mg HS PRN PO 05/19/17 09:45 (Surfak) 240 mg HS PO 05/19/17 21:00 (Percocet 5-325 Mg) 1 tab Q4H PRN PO 05/19/17 09:45 05/19/17 17:48 (Percocet 10-325 Mg) 1 tab Q4H PRN PO 05/19/17 09:45 05/20/17 11:02 (NovoLIN R SUPPLEMENTAL SCALE) 1 Q6HR SQ 05/19/17 12:00 (D50w (Vial) Inj) 50 ml UNSCH PRN IV PUSH 05/19/17 09:45 (Glucagon Inj) 1 mg UNSCH PRN OTHER 05/19/17 09:45 Morphine Sulfate 2 mg 2 mg Q4H PRN IV PUSH 05/19/17 18:00 05/19/17 22:56 (Heparin-D5W Inj) 250 ml @ 0 mls/hr TITRATE IV 05/19/17 20:00 (Synthroid) 100 mcg DAILY@06 PO 05/20/17 06:00 05/20/17 05:19 (Coumadin) 4 mg DAILY@16 PO 05/20/17 16:00 (Coumadin Booklet) 1 ONCE ONCE OTHER 05/20/17 16:00 05/20/17 16:01 (Ofirmev Inj) 1,000 mg Q6H PRN IV 05/20/17 11:00 05/21/17 11:00 Vital Signs / I&O Vital Signs Date Time Temp Pulse Resp B/P Pulse Ox O2 Delivery O2 Flow Rate FiO2 05/20/17 11:00 94 Nasal Cannula 1.00 05/20/17 11:00 98.0 72 16 136/66 94 05/20/17 11:00 83 05/20/17 08:00 98.0 101 15 150/68 94 05/20/17 08:00 94 Nasal Cannula 1.00 05/20/17 08:00 101 05/20/17 05:00 98.6 78 22 95 05/20/17 04:20 18 05/20/17 03:00 89 05/20/17 03:00 93 Nasal Cannula 1.00 05/20/17 03:00 97.9 89 18 133/63 93 05/19/17 23:01 18 05/19/17 23:00 98.5 81 18 135/68 94 05/19/17 23:00 94 Nasal Cannula 1.00 05/19/17 23:00 81 05/19/17 22:00 20 05/19/17 21:13 98 Nasal Cannula 1.00 05/19/17 19:04 18 05/19/17 19:00 86 05/19/17 19:00 95 Nasal Cannula 1.00 05/19/17 19:00 98.3 86 20 131/68 95 05/19/17 15:00 97 Nasal Cannula 1.00 05/19/17 15:00 78 05/19/17 13:51 18 I/O 05/19/17 05/19/17 05/19/17 05/20/17 05/20/17 05/20/17 07:00 15:00 23:00 07:00 15:00 23:00 Intake Total 1326 ml 1946 ml Output Total 580 ml 310 ml Balance 746 ml 1636 ml Intake Oral 240 ml 480 ml IV Total 1086 ml 1466 ml Output Urine Total 500 ml 300 ml Drainage Total 80 ml 10 ml # Bowel Movements 0 0 Physical Exam GENERAL: NAD, AAOx3 SKIN: Warm and dry. HEAD: Atraumatic. Normocephalic. EYES: Pupils equal and round. No scleral icterus. No injection or drainage. ENT: No nasal bleeding or discharge. Mucous membranes pink and moist. NECK: Trachea midline. No JVD. CARDIOVASCULAR: Irregularly irregular RESPIRATORY: No accessory muscle use. Clear to auscultation. Breath sounds equal bilaterally. GASTROINTESTINAL: Abdomen soft, non-tender, nondistended. Hepatic and splenic margins not palpable. MUSCULOSKELETAL: Right groin with wound vac, DP/PT pulses palpable NEUROLOGICAL: Awake and alert. No obvious cranial nerve deficits. Motor grossly within normal limits. Five out of 5 muscle strength in the arms and legs. Normal speech. PSYCHIATRIC: Appropriate mood and affect; insight and judgment normal. Laboratory Laboratory Tests Test 05/19/17 05/20/17 05/20/17 18:00 03:52 09:38 White Blood Count 8.7 TH/MM3 10.1 TH/MM3 Red Blood Count 3.17 MIL/MM3 3.24 MIL/MM3 Hemoglobin 9.9 GM/DL 9.8 GM/DL Hematocrit 28.9 % 29.6 % Mean Corpuscular Volume 91.1 FL 91.4 FL Mean Corpuscular Hemoglobin 31.1 PG 30.2 PG Mean Corpuscular Hemoglobin 34.1 % 33.1 % Concent Red Cell Distribution Width 13.8 % 14.0 % Platelet Count 176 TH/MM3 201 TH/MM3 Mean Platelet Volume 8.0 FL 7.7 FL Activated Partial 31.1 SEC 149.4 SEC 34.0 SEC Thromboplast Time Neutrophils (%) (Auto) 69.5 % Lymphocytes (%) (Auto) 17.2 % Monocytes (%) (Auto) 9.6 % Eosinophils (%) (Auto) 2.7 % Basophils (%) (Auto) 1.0 % Neutrophils # (Auto) 7.0 TH/MM3 Lymphocytes # (Auto) 1.7 TH/MM3 Monocytes # (Auto) 1.0 TH/MM3 Eosinophils # (Auto) 0.3 TH/MM3 Basophils # (Auto) 0.1 TH/MM3 CBC Comment DIFF FINAL Differential Comment Prothrombin Time 17.9 SEC Prothromb Time International 1.6 RATIO Ratio Sodium Level 143 MEQ/L Potassium Level 3.7 MEQ/L Chloride Level 108 MEQ/L Carbon Dioxide Level 28.4 MEQ/L Anion Gap 7 MEQ/L Blood Urea Nitrogen 13 MG/DL Creatinine 0.76 MG/DL Estimat Glomerular Filtration 72 ML/MIN Rate Random Glucose 125 MG/DL Calcium Level 7.9 MG/DL Total Bilirubin 0.3 MG/DL Aspartate Amino Transf 11 U/L (AST/SGOT) Alanine Aminotransferase 11 U/L (ALT/SGPT) Alkaline Phosphatase 59 U/L Total Protein 5.9 GM/DL Albumin 2.7 GM/DL Assessment and Plan Problem List: (1) Arterial occlusion (2) Hypertension (3) A-fib (4) Chronic anticoagulation Assessment and Plan 1) Doing well after embolectomy 2) Con't heparin drip and start Coumadin 3) D/C heparin drip once INR > 2 4) Heart rates mostly controlled, will continue to follow 5) Upon discharge, will follow up with Philipp Henley DO May 20, 2017 13:03
[2017-05-20] MEDS: oxyCODONE/ACETAMINOPHEN 5 MG/325 MG TAB PO PRN (14:25)
[2017-05-20] MEDS: WARFARIN SOD 4 MG TAB PO SCH (16:21)
[2017-05-20] MEDS: HEPARIN 25,000 UNITS-D5W 250 ML - PREMIX IV SCH (16:47)
[2017-05-20 18:51] LABS: APTT (PATIENT) 49.7 SEC (24.3-30.1)
[2017-05-20] MEDS: DOCUSATE CALCIUM 240 MG CAP PO SCH (19:57)
[2017-05-20] MEDS: PANTOPRAZOLE SOD 40 MG DELAYED RELEASE TAB PO SCH (19:57)
[2017-05-21] VITALS (11 sets, daily range): BP systolic 114–130; BP diastolic 46–72; PULSE 71–97; RESP 18–20; TEMP 98.4–98.6; O2SAT 93–97
[2017-05-21 01:32] LABS: APTT (PATIENT) 80.8 SEC (24.3-30.1)
[2017-05-21 05:24] LABS: HEMATOCRIT 26.3 % (35.0-46.0); MEAN CELL VOLUME 92.2 FL (80.0-100.0); MEAN CORPUSCULAR HGB CONC 32.5 % (32.0-36.0); PLATELET COUNT 172 TH/MM3 (150-450); RED BLOOD COUNT 2.85 MIL/MM3 (4.00-5.30); RED CELL DISTRIBUTION WIDTH 13.9 % (11.6-17.2); REVIEW FLAG FINAL; WHITE BLOOD COUNT 11.3 TH/MM3 (4.0-11.0)
[2017-05-21 05:30] LABS: INTERNATIONAL NORMALIZED RATIO 1.9 RATIO; PROTHROMBIN TIME - PATIENT 21.1 SEC (9.8-11.6)
[2017-05-21 05:47] LABS: BICARBONATE 28.6 MEQ/L (21.0-32.0); POTASSIUM 4.4 MEQ/L (3.5-5.1)
[2017-05-21] MEDS: INSULIN NovoLIN REGULAR SUPPLEMENTAL SCALE SQ SCH ×5 (06:00→23:52)
[2017-05-21] MEDS: LEVOTHYROXINE SODIUM 100 MCG TAB PO SCH (06:20)
[2017-05-21] MEDS: oxyCODONE/ACETAMINOPHEN 10 MG/325 MG TAB PO PRN ×4 (07:22→20:30)
[2017-05-21] MEDS: ASPIRIN EC 325 MG TABEC PO SCH (08:59)
[2017-05-21] MEDS: METOPROLOL TARTRATE 50 MG TAB PO SCH (08:59)
[2017-05-21] MEDS: SODIUM CHLORIDE 0.9% FLUSH 10 ML FLUSH IV FLUSH SCH ×2 (09:00→20:34)
[2017-05-21] MEDS: PRAVASTATIN SOD 20 MG TAB PO SCH (09:00)
--- NOTE | 2017-05-21 11:07 | PD.CARD.PN ---
Subjective Subjective Remarks Doing well Up to chair, back feels better off bed Right foot neurovascularly intact Objective Medications Current Medications Medications (Trade) Dose Ordered Sig/Dipti Route Start Time Stop Time Status Last Admin (NS Flush) 2 ml UNSCH PRN IV FLUSH 05/19/17 05:30 (NS Flush) 2 ml BID IV FLUSH 05/19/17 09:00 05/21/17 09:00 (Zofran Inj) 4 mg Q6H PRN IVP 05/19/17 05:30 (Tylenol) 650 mg Q6H PRN PO 05/19/17 05:30 (Senokot) 17.2 mg Q12H PRN PO 05/19/17 05:30 (Lactulose Liq) 30 ml DAILY PRN PO 05/19/17 05:30 (Pravachol) 20 mg DAILY PO 05/19/17 09:00 05/21/17 09:00 (Lopressor) 50 mg DAILY PO 05/19/17 09:00 05/21/17 08:59 (Ecotrin Ec) 325 mg DAILY PO 05/20/17 09:00 05/21/17 08:59 (Zofran Inj) 4 mg Q6H PRN IV PUSH 05/19/17 09:45 (Protonix) 40 mg HS PO 05/19/17 21:00 05/20/17 19:57 (Tylenol) 650 mg Q4H PRN PO 05/19/17 09:45 (Milk Of Magnesia Liq) 30 ml DAILY PRN PO 05/19/17 09:45 (Ambien) 5 mg HS PRN PO 05/19/17 09:45 (Surfak) 240 mg HS PO 05/19/17 21:00 05/20/17 19:57 (Percocet 5-325 Mg) 1 tab Q4H PRN PO 05/19/17 09:45 05/20/17 14:25 (Percocet 10-325 Mg) 1 tab Q4H PRN PO 05/19/17 09:45 05/21/17 07:22 (NovoLIN R SUPPLEMENTAL SCALE) 1 Q6HR SQ 05/19/17 12:00 05/20/17 16:50 (D50w (Vial) Inj) 50 ml UNSCH PRN IV PUSH 05/19/17 09:45 (Glucagon Inj) 1 mg UNSCH PRN OTHER 05/19/17 09:45 Morphine Sulfate 2 mg 2 mg Q4H PRN IV PUSH 05/19/17 18:00 05/19/17 22:56 (Heparin-D5W Inj) 250 ml @ 0 mls/hr TITRATE IV 05/19/17 20:00 05/20/17 16:47 (Synthroid) 100 mcg DAILY@06 PO 05/20/17 06:00 05/21/17 06:20 (Coumadin) 4 mg DAILY@16 PO 05/20/17 16:00 05/20/17 16:21 Vital Signs / I&O Vital Signs Date Time Temp Pulse Resp B/P Pulse Ox O2 Delivery O2 Flow Rate FiO2 05/21/17 10:06 95 Nasal Cannula 1.00 05/21/17 08:00 94 Nasal Cannula 1.00 05/21/17 07:40 98.5 91 18 128/57 93 05/21/17 07:00 97 05/21/17 03:00 98.4 74 18 130/53 94 05/21/17 03:00 74 05/21/17 03:00 94 Nasal Cannula 1.00 05/20/17 23:00 95 Nasal Cannula 1.00 05/20/17 23:00 74 05/20/17 23:00 98.0 74 18 140/57 95 05/20/17 21:10 18 05/20/17 20:48 94 Nasal Cannula 1.00 05/20/17 19:00 98.3 71 22 118/55 93 05/20/17 19:00 93 Nasal Cannula 1.00 05/20/17 19:00 71 05/20/17 18:00 90 16 145/70 94 05/20/17 15:30 16 05/20/17 15:00 72 05/20/17 15:00 98.4 72 16 142/58 94 05/20/17 15:00 94 Nasal Cannula 1.00 05/20/17 13:26 94 Nasal Cannula 1.00 I/O 05/20/17 05/20/17 05/20/17 05/21/17 05/21/17 05/21/17 07:00 15:00 23:00 07:00 15:00 23:00 Intake Total 1946 ml 1279 ml 322 ml Output Total 310 ml 275 ml 205 ml Balance 1636 ml 1004 ml 117 ml Intake Oral 480 ml 720 ml 240 ml IV Total 1466 ml 559 ml 82 ml Output Urine Total 300 ml 275 ml 200 ml Drainage Total 10 ml 5 ml # Bowel Movements 0 0 0 Physical Exam GENERAL: NAD, AAOx3 SKIN: Warm and dry. HEAD: Atraumatic. Normocephalic. EYES: Pupils equal and round. No scleral icterus. No injection or drainage. ENT: No nasal bleeding or discharge. Mucous membranes pink and moist. NECK: Trachea midline. No JVD. CARDIOVASCULAR: Irregularly irregular RESPIRATORY: No accessory muscle use. Mild rales bilaterally bases GASTROINTESTINAL: Abdomen soft, non-tender, nondistended. Hepatic and splenic margins not palpable. MUSCULOSKELETAL: Right groin with wound vac, DP/PT pulses palpable NEUROLOGICAL: Awake and alert. No obvious cranial nerve deficits. Motor grossly within normal limits. Five out of 5 muscle strength in the arms and legs. Normal speech. PSYCHIATRIC: Appropriate mood and affect; insight and judgment normal. Laboratory Laboratory Tests Test 05/20/17 05/21/17 05/21/17 17:38 01:00 04:25 Activated Partial 49.7 SEC 80.8 SEC Thromboplast Time White Blood Count 11.3 TH/MM3 Red Blood Count 2.85 MIL/MM3 Hemoglobin 8.5 GM/DL Hematocrit 26.3 % Mean Corpuscular Volume 92.2 FL Mean Corpuscular Hemoglobin 30.0 PG Mean Corpuscular Hemoglobin 32.5 % Concent Red Cell Distribution Width 13.9 % Platelet Count 172 TH/MM3 Mean Platelet Volume 7.9 FL Prothrombin Time 21.1 SEC Prothromb Time International 1.9 RATIO Ratio Sodium Level 140 MEQ/L Potassium Level 4.4 MEQ/L Chloride Level 105 MEQ/L Carbon Dioxide Level 28.6 MEQ/L Anion Gap 6 MEQ/L Blood Urea Nitrogen 22 MG/DL Creatinine 0.98 MG/DL Estimat Glomerular Filtration 54 ML/MIN Rate Random Glucose 113 MG/DL Calcium Level 7.8 MG/DL Assessment and Plan Problem List: (1) Arterial occlusion (2) Hypertension (3) A-fib (4) Chronic anticoagulation Assessment and Plan 1) Doing well after embolectomy 2) Con't heparin drip and Coumadin 3) D/C heparin drip once INR > 2 4) Heart rates mostly controlled, but with some episodes, will change Lopressor to 25mg BID as really more a 12 hour medication 5) Mild rales secondary to IV fluids with her procedure, will give 1 dose IV Lasix today 6) Will follow up with Dr. Gauthier on discharge Philipp Charlton DO May 21, 2017 11:07
[2017-05-21] MEDS ORDERED: FUROSEMIDE 20 MG/2 ML VIAL IV PUSH ONE (11:15)
--- NOTE | 2017-05-21 11:37 | PD.VS.PN ---
Subjective POD #: 2 Procedure(s): embolectomy right popliteal artery Subjective/Hospital Course doing well, foot ok overall looks great ambulated w/ PT foot ok Objective Vitals/I&O Date Time Temp Pulse Resp B/P Pulse Ox O2 Delivery O2 Flow Rate FiO2 05/21/17 11:00 96 05/21/17 10:06 95 Nasal Cannula 1.00 05/21/17 08:00 94 Nasal Cannula 1.00 05/21/17 08:00 18 05/21/17 07:40 98.5 91 18 128/57 93 05/21/17 07:00 97 05/21/17 03:00 98.4 74 18 130/53 94 05/21/17 03:00 74 05/21/17 03:00 94 Nasal Cannula 1.00 05/20/17 23:00 95 Nasal Cannula 1.00 05/20/17 23:00 74 05/20/17 23:00 98.0 74 18 140/57 95 05/20/17 20:48 94 Nasal Cannula 1.00 05/20/17 19:00 98.3 71 22 118/55 93 05/20/17 19:00 93 Nasal Cannula 1.00 05/20/17 19:00 71 05/20/17 18:00 90 16 145/70 94 05/20/17 15:30 16 05/20/17 15:00 72 05/20/17 15:00 98.4 72 16 142/58 94 05/20/17 15:00 94 Nasal Cannula 1.00 05/20/17 13:26 94 Nasal Cannula 1.00 05/21/17 05/21/17 05/21/17 07:00 15:00 23:00 Intake Total 322 ml Output Total 205 ml Balance 117 ml Exam: R groin incision edematous but no hematoma palpable PT Pulses: palpable PT Laboratory Laboratory Tests Test 05/20/17 05/21/17 05/21/17 17:38 01:00 04:25 Activated Partial 49.7 80.8 Thromboplast Time White Blood Count 11.3 Red Blood Count 2.85 Hemoglobin 8.5 Hematocrit 26.3 Mean Corpuscular Volume 92.2 Mean Corpuscular Hemoglobin 30.0 Mean Corpuscular Hemoglobin 32.5 Concent Red Cell Distribution Width 13.9 Platelet Count 172 Mean Platelet Volume 7.9 Prothrombin Time 21.1 Prothromb Time International 1.9 Ratio Sodium Level 140 Potassium Level 4.4 Chloride Level 105 Carbon Dioxide Level 28.6 Anion Gap 6 Blood Urea Nitrogen 22 Creatinine 0.98 Estimat Glomerular Filtration 54 Rate Random Glucose 113 Calcium Level 7.8 Assessment and Plan Assessment: (1) Arterial occlusion Status: Acute Plan Status post right lower extremity embolectomy. Right foot now with palpable pulse. 1. Cont hep gtt until coumadin >2 2. OOB TC ad jessie 3. Reg diet 4. Ortiz out tomorrow 5. Ok to Suman Patel MD May 21, 2017 11:36
[2017-05-21 13:29] LABS: APTT (PATIENT) 48.6 SEC (24.3-30.1)
--- NOTE | 2017-05-21 15:15 | HHI.PR ---
Subjective Remarks Pain is present but controlled. INR is now 1.9. Patient remains on heparin drip for now. Plan for Ortiz catheter removal tomorrow. Patient has started to work with physical therapy. No tachycardia when seen. No other complaints from the patient when seen. Objective Vital Signs Date Time Temp Pulse Resp B/P Pulse Ox O2 Delivery O2 Flow Rate FiO2 05/21/17 15:00 71 05/21/17 12:18 20 05/21/17 12:00 93 Room Air 05/21/17 11:43 98.6 87 20 119/46 94 05/21/17 11:00 96 05/21/17 10:06 95 Nasal Cannula 1.00 05/21/17 08:00 94 Nasal Cannula 1.00 05/21/17 07:40 98.5 91 18 128/57 93 05/21/17 07:00 97 05/21/17 03:00 98.4 74 18 130/53 94 05/21/17 03:00 74 05/21/17 03:00 94 Nasal Cannula 1.00 05/20/17 23:00 95 Nasal Cannula 1.00 05/20/17 23:00 74 05/20/17 23:00 98.0 74 18 140/57 95 05/20/17 20:48 94 Nasal Cannula 1.00 05/20/17 19:00 98.3 71 22 118/55 93 05/20/17 19:00 93 Nasal Cannula 1.00 05/20/17 19:00 71 05/20/17 18:00 90 16 145/70 94 05/20/17 15:30 16 I/O 05/20/17 05/20/17 05/20/17 05/21/17 05/21/17 05/21/17 07:00 15:00 23:00 07:00 15:00 23:00 Intake Total 1946 ml 1279 ml 322 ml Output Total 310 ml 275 ml 205 ml Balance 1636 ml 1004 ml 117 ml Intake Oral 480 ml 720 ml 240 ml IV Total 1466 ml 559 ml 82 ml Output Urine Total 300 ml 275 ml 200 ml Drainage Total 10 ml 5 ml # Bowel Movements 0 0 0 Result Diagram: 05/21/17 0425 05/21/17424 Objective Remarks GENERAL: NAD, A&Ox3 HEAD: Normocephalic. NECK: Supple, trachea midline. No lymphadenopathy. EYES: No scleral icterus. No injection or drainage. CARDIOVASCULAR: Irregularly irregular rhythm with a rate within normal limits, without murmurs, gallops, or rubs. RESPIRATORY: Breath sounds equal bilaterally. No accessory muscle use. GASTROINTESTINAL: Abdomen soft, non-tender, nondistended. MUSCULOSKELETAL: No cyanosis, or edema. SKIN: Warm and dry. NEURO: No focal neurological deficitis. A/P Problem List: (1) Chronic anticoagulation ICD Code: Z79.01 (2) Hypertension ICD Code: I10 (3) A-fib ICD Code: I48.91 (4) Arterial occlusion ICD Code: I74.9 Assessment and Plan Assessment and plan 87-year-old female admitted secondary to right lower extremity arterial occlusion Right lower extremity arterial occlusion Status post embolectomy via right groin Postop pain Following ICU Vascular surgery following Likely etiology is embolism, possibly related to A. fib Continue heparin drip, till Coumadin is therapeutic As needed pain treatments Atrial fibrillation Continue Coumadin Follow INR Follow on telemetry Continue Lopressor 25 mg by mouth twice a day Hypertension Resume baseline treatment Follow blood pressures Presently blood pressure is controlled Continue Lopressor Add back amlodipine and hydrochlorothiazide if needed (not needed currently) Hypothyroidism Continue Synthroid Follow as an outpatient DVT prophylaxis Patient is presently on heparin drip and Coumadin Plan to hold heparin drip and Coumadin is therapeutic Tim Encarnacion MD May 21, 2017 15:15
[2017-05-21] MEDS: WARFARIN SOD 4 MG TAB PO SCH (16:12)
[2017-05-21] MEDS: METOPROLOL TARTRATE 25 MG TAB PO SCH (20:29)
[2017-05-21] MEDS: DOCUSATE CALCIUM 240 MG CAP PO SCH (20:30)
[2017-05-21] MEDS: PANTOPRAZOLE SOD 40 MG DELAYED RELEASE TAB PO SCH (20:30)
[2017-05-22] VITALS (19 sets, daily range): BP systolic 123–150; BP diastolic 53–66; PULSE 72–98; RESP 14–20; TEMP 98.3–98.7; O2SAT 92–96
[2017-05-22] MEDS: oxyCODONE/ACETAMINOPHEN 10 MG/325 MG TAB PO PRN ×4 (04:18→23:22)
[2017-05-22 04:28] LABS: HEMATOCRIT 25.4 % (35.0-46.0); MEAN CELL VOLUME 91.9 FL (80.0-100.0); MEAN CORPUSCULAR HEMOGLOBIN 30.6 PG (27.0-34.0); MEAN CORPUSCULAR HGB CONC 33.3 % (32.0-36.0); PLATELET COUNT 185 TH/MM3 (150-450); RED BLOOD COUNT 2.76 MIL/MM3 (4.00-5.30); RED CELL DISTRIBUTION WIDTH 13.8 % (11.6-17.2); REVIEW FLAG FINAL
[2017-05-22 04:38] LABS: APTT (PATIENT) 53.9 SEC (24.3-30.1)
[2017-05-22 04:51] LABS: BICARBONATE 29.2 MEQ/L (21.0-32.0); POTASSIUM 4.5 MEQ/L (3.5-5.1)
[2017-05-22] MEDS: INSULIN NovoLIN REGULAR SUPPLEMENTAL SCALE SQ SCH ×4 (06:00→23:28)
[2017-05-22] MEDS: LEVOTHYROXINE SODIUM 100 MCG TAB PO SCH (06:04)
[2017-05-22] MEDS: HEPARIN 25,000 UNITS-D5W 250 ML - PREMIX IV SCH (06:09)
--- NOTE | 2017-05-22 07:17 | PD.VS.PN ---
Subjective POD #: 3 Procedure(s): embolectomy right popliteal artery Subjective/Hospital Course doing great c/o appropriate R groin discomfort foot ok ambulated with PT yesterday Objective Vitals/I&O Date Time Temp Pulse Resp B/P Pulse Ox O2 Delivery O2 Flow Rate FiO2 05/22/17 05:20 18 05/22/17 04:00 98.7 72 20 146/66 92 05/22/17 03:50 92 Room Air 05/22/17 03:20 82 05/22/17 00:00 98.4 77 18 137/58 95 05/22/17 00:00 72 05/21/17 23:44 95 Room Air 05/21/17 20:45 95 21 05/21/17 20:00 98.6 80 18 126/72 97 05/21/17 19:36 97 Room Air 05/21/17 19:00 78 05/21/17 15:25 98.4 87 20 114/48 94 05/21/17 15:19 93 Room Air 05/21/17 15:00 71 05/21/17 12:00 93 Room Air 05/21/17 11:43 98.6 87 20 119/46 94 05/21/17 11:00 96 05/21/17 10:06 95 Nasal Cannula 1.00 05/21/17 08:00 94 Nasal Cannula 1.00 05/21/17 07:40 98.5 91 18 128/57 93 05/22/17 05/22/17 05/22/17 06:59 14:59 22:59 Intake Total 307 ml Output Total 300 ml Balance 7 ml Exam: R groin VAC in place palpable R PT Laboratory Laboratory Tests Test 05/21/17 05/22/17 12:14 03:58 Activated Partial 48.6 53.9 Thromboplast Time White Blood Count 11.0 Red Blood Count 2.76 Hemoglobin 8.4 Hematocrit 25.4 Mean Corpuscular Volume 91.9 Mean Corpuscular Hemoglobin 30.6 Mean Corpuscular Hemoglobin 33.3 Concent Red Cell Distribution Width 13.8 Platelet Count 185 Mean Platelet Volume 7.9 Sodium Level 138 Potassium Level 4.5 Chloride Level 102 Carbon Dioxide Level 29.2 Anion Gap 7 Blood Urea Nitrogen 22 Creatinine 0.95 Estimat Glomerular Filtration 56 Rate Random Glucose 109 Calcium Level 7.9 Assessment and Plan Assessment: (1) Arterial occlusion Status: Acute Plan Status post right lower extremity embolectomy. Right foot now with palpable pulse. 1. Cont hep gtt until coumadin >2 2. OOB TC ad jessie 3. D/C Diana 4. Helen 5. Ok to transfer from ICU Suman Osei MD May 22, 2017 07:17
[2017-05-22 07:28] LABS: INTERNATIONAL NORMALIZED RATIO 1.6 RATIO; PROTHROMBIN TIME - PATIENT 18.3 SEC (9.8-11.6)
[2017-05-22] MEDS: PRAVASTATIN SOD 20 MG TAB PO SCH (08:51)
[2017-05-22] MEDS: METOPROLOL TARTRATE 25 MG TAB PO SCH ×2 (08:51→20:22)
[2017-05-22] MEDS: ASPIRIN EC 325 MG TABEC PO SCH (08:51)
[2017-05-22] MEDS: SODIUM CHLORIDE 0.9% FLUSH 10 ML FLUSH IV FLUSH SCH ×2 (08:53→20:22)
--- NOTE | 2017-05-22 08:53 | HHI.PR ---
Subjective Remarks INR is now 1.6. Pain groin remains. No pain in the foot. No new complaints from the patient. She did PT yesterday with some dizziness. Objective Vital Signs Date Time Temp Pulse Resp B/P Pulse Ox O2 Delivery O2 Flow Rate FiO2 05/22/17 08:07 94 Room Air 05/22/17 07:00 91 05/22/17 07:00 98.3 91 14 127/60 94 05/22/17 05:20 18 05/22/17 04:00 98.7 72 20 146/66 92 05/22/17 03:50 92 Room Air 05/22/17 03:20 82 05/22/17 00:00 98.4 77 18 137/58 95 05/22/17 00:00 72 05/21/17 23:44 95 Room Air 05/21/17 20:45 95 21 05/21/17 20:00 98.6 80 18 126/72 97 05/21/17 19:36 97 Room Air 05/21/17 19:00 78 05/21/17 15:25 98.4 87 20 114/48 94 05/21/17 15:19 93 Room Air 05/21/17 15:00 71 05/21/17 12:00 93 Room Air 05/21/17 11:43 98.6 87 20 119/46 94 05/21/17 11:00 96 05/21/17 10:06 95 Nasal Cannula 1.00 I/O 05/21/17 05/21/17 05/21/17 05/22/17 05/22/17 05/22/17 07:00 15:00 23:00 07:00 15:00 23:00 Intake Total 322 ml 1272 ml 307 ml Output Total 205 ml 650 ml 300 ml Balance 117 ml 622 ml 7 ml Intake Oral 240 ml 1200 ml 240 ml IV Total 82 ml 72 ml 67 ml Output Urine Total 200 ml 650 ml 300 ml Drainage Total 5 ml 0 ml # Bowel Movements 0 0 0 Result Diagram: 05/22/1735705/22/17357 Objective Remarks GENERAL: NAD, A&Ox3 HEAD: Normocephalic. NECK: Supple, trachea midline. No lymphadenopathy. EYES: No scleral icterus. No injection or drainage. CARDIOVASCULAR: Irregularly irregular rhythm with a rate within normal limits, without murmurs, gallops, or rubs. RESPIRATORY: Breath sounds equal bilaterally. No accessory muscle use. GASTROINTESTINAL: Abdomen soft, non-tender, nondistended. MUSCULOSKELETAL: No cyanosis, or edema. SKIN: Warm and dry. NEURO: No focal neurological deficitis. A/P Problem List: (1) Chronic anticoagulation ICD Code: Z79.01 (2) Hypertension ICD Code: I10 (3) A-fib ICD Code: I48.91 (4) Arterial occlusion ICD Code: I74.9 Assessment and Plan Assessment and plan 87-year-old female admitted secondary to right lower extremity arterial occlusion. INR is 1.6 on 05/22/17. Coumadin dosing increased to 5 mg daily. Follow INR. Continue heparin drip. Monitor PTT. Transfer out of ICU. Right lower extremity arterial occlusion Status post embolectomy via right groin Postop pain Following ICU Vascular surgery following Likely etiology is embolism, possibly related to A. fib Continue heparin drip, till Coumadin is therapeutic As needed pain treatments Atrial fibrillation Continue Coumadin Follow INR Follow on telemetry Continue Lopressor 25 mg by mouth twice a day Hypertension Resume baseline treatment Follow blood pressures Presently blood pressure is controlled Continue Lopressor Add back amlodipine and hydrochlorothiazide if needed (not needed currently) Hypothyroidism Continue Synthroid Follow as an outpatient DVT prophylaxis Patient is presently on heparin drip and Coumadin Plan to hold heparin drip and Coumadin is therapeutic Tim Encarnacion MD May 22, 2017 08:53
[2017-05-22] MEDS: oxyCODONE/ACETAMINOPHEN 5 MG/325 MG TAB PO PRN (14:14)
[2017-05-22] MEDS ORDERED: FUROSEMIDE 20 MG/2 ML VIAL IV PUSH ONE (14:45)
--- NOTE | 2017-05-22 14:47 | PD.CARD.PN ---
Subjective Subjective Remarks No events Up and ambulating a bit Heart rates better controlled Objective Medications Current Medications Medications (Trade) Dose Ordered Sig/Dipti Route Start Time Stop Time Status Last Admin (NS Flush) 2 ml UNSCH PRN IV FLUSH 05/19/17 05:30 (NS Flush) 2 ml BID IV FLUSH 05/19/17 09:00 05/21/17 20:34 (Tylenol) 650 mg Q6H PRN PO 05/19/17 05:30 (Senokot) 17.2 mg Q12H PRN PO 05/19/17 05:30 (Lactulose Liq) 30 ml DAILY PRN PO 05/19/17 05:30 (Pravachol) 20 mg DAILY PO 05/19/17 09:00 05/22/17 08:51 (Ecotrin Ec) 325 mg DAILY PO 05/20/17 09:00 05/22/17 08:51 (Zofran Inj) 4 mg Q6H PRN IV PUSH 05/19/17 09:45 (Protonix) 40 mg HS PO 05/19/17 21:00 05/21/17 20:30 (Tylenol) 650 mg Q4H PRN PO 05/19/17 09:45 (Milk Of Magnesia Liq) 30 ml DAILY PRN PO 05/19/17 09:45 (Ambien) 5 mg HS PRN PO 05/19/17 09:45 (Surfak) 240 mg HS PO 05/19/17 21:00 05/21/17 20:30 (Percocet 5-325 Mg) 1 tab Q4H PRN PO 05/19/17 09:45 05/22/17 14:14 (Percocet 10-325 Mg) 1 tab Q4H PRN PO 05/19/17 09:45 05/22/17 08:51 (NovoLIN R SUPPLEMENTAL SCALE) 1 Q6HR SQ 05/19/17 12:00 05/22/17 11:51 (D50w (Vial) Inj) 50 ml UNSCH PRN IV PUSH 05/19/17 09:45 (Glucagon Inj) 1 mg UNSCH PRN OTHER 05/19/17 09:45 Morphine Sulfate 2 mg 2 mg Q4H PRN IV PUSH 05/19/17 18:00 05/19/17 22:56 (Heparin-D5W Inj) 250 ml @ 0 mls/hr TITRATE IV 05/19/17 20:00 05/22/17 06:09 (Synthroid) 100 mcg DAILY@06 PO 05/20/17 06:00 05/22/17 06:04 (Lopressor) 25 mg Q12HR PO 05/21/17 21:00 05/22/17 08:51 (Coumadin) 5 mg DAILY@16 PO 05/22/17 16:00 Vital Signs / I&O Vital Signs Date Time Temp Pulse Resp B/P Pulse Ox O2 Delivery O2 Flow Rate FiO2 05/22/17 13:05 88 05/22/17 12:29 88 05/22/17 11:45 98.5 80 14 123/53 95 05/22/17 11:14 80 05/22/17 11:10 95 Room Air 05/22/17 09:45 16 05/22/17 08:07 94 Room Air 05/22/17 07:00 91 05/22/17 07:00 98.3 91 14 127/60 94 05/22/17 04:00 98.7 72 20 146/66 92 05/22/17 03:50 92 Room Air 05/22/17 03:20 82 05/22/17 00:00 98.4 77 18 137/58 95 05/22/17 00:00 72 05/21/17 23:44 95 Room Air 05/21/17 20:45 95 21 05/21/17 20:00 98.6 80 18 126/72 97 05/21/17 19:36 97 Room Air 05/21/17 19:00 78 05/21/17 15:25 98.4 87 20 114/48 94 05/21/17 15:19 93 Room Air 05/21/17 15:00 71 I/O 05/21/17 05/21/17 05/21/17 05/22/17 05/22/17 05/22/17 07:00 15:00 23:00 07:00 15:00 23:00 Intake Total 322 ml 1272 ml 307 ml Output Total 205 ml 650 ml 300 ml Balance 117 ml 622 ml 7 ml Intake Oral 240 ml 1200 ml 240 ml IV Total 82 ml 72 ml 67 ml Output Urine Total 200 ml 650 ml 300 ml Drainage Total 5 ml 0 ml # Bowel Movements 0 0 0 Physical Exam GENERAL: NAD, AAOx3 SKIN: Warm and dry. HEAD: Atraumatic. Normocephalic. EYES: Pupils equal and round. No scleral icterus. No injection or drainage. ENT: No nasal bleeding or discharge. Mucous membranes pink and moist. NECK: Trachea midline. No JVD. CARDIOVASCULAR: Irregularly irregular RESPIRATORY: No accessory muscle use. Minimal rales bilaterally bases GASTROINTESTINAL: Abdomen soft, non-tender, nondistended. Hepatic and splenic margins not palpable. MUSCULOSKELETAL: Right groin with wound vac, DP/PT pulses palpable NEUROLOGICAL: Awake and alert. No obvious cranial nerve deficits. Motor grossly within normal limits. Five out of 5 muscle strength in the arms and legs. Normal speech. PSYCHIATRIC: Appropriate mood and affect; insight and judgment normal. Laboratory Laboratory Tests Test 05/22/17 03:58 White Blood Count 11.0 TH/MM3 Red Blood Count 2.76 MIL/MM3 Hemoglobin 8.4 GM/DL Hematocrit 25.4 % Mean Corpuscular Volume 91.9 FL Mean Corpuscular Hemoglobin 30.6 PG Mean Corpuscular Hemoglobin 33.3 % Concent Red Cell Distribution Width 13.8 % Platelet Count 185 TH/MM3 Mean Platelet Volume 7.9 FL Prothrombin Time 18.3 SEC Prothromb Time International 1.6 RATIO Ratio Activated Partial 53.9 SEC Thromboplast Time Sodium Level 138 MEQ/L Potassium Level 4.5 MEQ/L Chloride Level 102 MEQ/L Carbon Dioxide Level 29.2 MEQ/L Anion Gap 7 MEQ/L Blood Urea Nitrogen 22 MG/DL Creatinine 0.95 MG/DL Estimat Glomerular Filtration 56 ML/MIN Rate Random Glucose 109 MG/DL Calcium Level 7.9 MG/DL Assessment and Plan Problem List: (1) Arterial occlusion (2) Hypertension (3) A-fib (4) Chronic anticoagulation Assessment and Plan 1) Doing well after embolectomy 2) Con't heparin drip and Coumadin 3) D/C heparin drip once INR > 2 4) Heart rates now better controlled, would DC on Lopressor BID instead of daily 5) Mild rales secondary to IV fluids with her procedure, will give another Lasix dose today 6) Will follow up with Dr. Gauthier on discharge Philipp Charlton DO May 22, 2017 14:47
[2017-05-22] MEDS ORDERED: WARFARIN SOD 5 MG TAB PO SCH (16:00)
[2017-05-22] MEDS: PANTOPRAZOLE SOD 40 MG DELAYED RELEASE TAB PO SCH (20:21)
[2017-05-22] MEDS: DOCUSATE CALCIUM 240 MG CAP PO SCH (20:21)
[2017-05-23] VITALS (29 sets, daily range): BP systolic 114–148; BP diastolic 55–67; PULSE 64–101; RESP 16–18; TEMP 98.2–98.8; O2SAT 94–97
[2017-05-23] MEDS: oxyCODONE/ACETAMINOPHEN 10 MG/325 MG TAB PO PRN ×3 (03:18→21:33)
[2017-05-23] MEDS: INSULIN NovoLIN REGULAR SUPPLEMENTAL SCALE SQ SCH ×4 (06:00→23:52)
[2017-05-23] MEDS: LEVOTHYROXINE SODIUM 100 MCG TAB PO SCH (06:13)
[2017-05-23 06:46] LABS: HEMATOCRIT 22.9 % (35.0-46.0); MEAN CELL VOLUME 92.6 FL (80.0-100.0); MEAN CORPUSCULAR HEMOGLOBIN 30.5 PG (27.0-34.0); PLATELET COUNT 200 TH/MM3 (150-450); RED BLOOD COUNT 2.47 MIL/MM3 (4.00-5.30); REVIEW FLAG FINAL; WHITE BLOOD COUNT 12.5 TH/MM3 (4.0-11.0)
[2017-05-23 06:50] LABS: INTERNATIONAL NORMALIZED RATIO 1.6 RATIO; PROTHROMBIN TIME - PATIENT 17.7 SEC (9.8-11.6)
--- NOTE | 2017-05-23 06:52 | PD.VS.PN ---
Subjective POD #: 4 Procedure(s): embolectomy right popliteal artery Subjective/Hospital Course transferred to floor c/o pain in groin but controlled with pain meds ambulated with PT foot ok Objective Vitals/I&O Date Time Temp Pulse Resp B/P Pulse Ox O2 Delivery O2 Flow Rate FiO2 05/23/17 06:08 86 05/23/17 05:13 74 05/23/17 04:00 85 05/23/17 03:28 98.2 85 18 140/66 95 05/23/17 03:04 88 05/23/17 02:00 78 05/23/17 01:10 75 05/23/17 00:02 72 05/22/17 23:20 98.5 80 16 131/64 96 05/22/17 23:20 72 05/22/17 22:13 78 05/22/17 21:00 88 05/22/17 20:00 90 05/22/17 19:22 98.4 98 18 141/55 96 05/22/17 19:22 96 Room Air 05/22/17 19:00 84 05/22/17 18:05 90 05/22/17 17:06 84 05/22/17 16:33 78 18 150/63 95 05/22/17 16:30 88 05/22/17 15:11 14 05/22/17 15:04 95 Room Air 05/22/17 15:03 98.3 81 14 124/60 95 05/22/17 15:03 81 05/22/17 13:05 88 05/22/17 12:29 88 05/22/17 11:45 98.5 80 14 123/53 95 05/22/17 11:14 80 05/22/17 11:10 95 Room Air 05/22/17 09:45 16 05/22/17 08:07 94 Room Air 05/22/17 07:00 91 05/22/17 07:00 98.3 91 14 127/60 94 05/23/17 05/23/17 05/23/17 07:00 15:00 23:00 Intake Total 753 ml Output Total 220 ml Balance 533 ml Exam: R groin edematous, stable, not firm Pulses: palpable PT Incisions: R groin vac in place Laboratory Laboratory Tests Test 05/23/17 04:34 White Blood Count 12.5 Red Blood Count 2.47 Hemoglobin 7.6 Hematocrit 22.9 Mean Corpuscular Volume 92.6 Mean Corpuscular Hemoglobin 30.5 Mean Corpuscular Hemoglobin 33.0 Concent Red Cell Distribution Width 14.0 Platelet Count 200 Mean Platelet Volume 8.5 Assessment and Plan Assessment: (1) Arterial occlusion Status: Acute Plan Status post right lower extremity embolectomy. Right foot now with palpable pulse. 1. Cont hep gtt until coumadin >2 2. OOB TC ad jessie 3. diurese and recheck CBC tomorrow Suman Osei MD May 23, 2017 06:52
[2017-05-23 07:23] LABS: BICARBONATE 27.6 MEQ/L (21.0-32.0); POTASSIUM 4.5 MEQ/L (3.5-5.1)
[2017-05-23] MEDS ORDERED: SODIUM CHLOR 0.9% 1000 ML INJ 1,000 ML IV SCH (08:00)
[2017-05-23] MEDS: PRAVASTATIN SOD 20 MG TAB PO SCH (08:05)
[2017-05-23] MEDS: METOPROLOL TARTRATE 25 MG TAB PO SCH ×2 (08:05→21:33)
[2017-05-23] MEDS: ASPIRIN EC 325 MG TABEC PO SCH (08:05)
[2017-05-23] MEDS: SODIUM CHLORIDE 0.9% FLUSH 10 ML FLUSH IV FLUSH SCH ×2 (08:51→21:34)
--- NOTE | 2017-05-23 11:22 | HHI.PR ---
Subjective Remarks INR is 1.6 again. Improving pain and groin. Renal function shows slight increase in creatinine so diuretics have been stopped by cardiology. Coumadin level is presently at 5 mg daily so will need to be increased. No new complaints from the patient. She is out of the bed in the chair when seen. Objective Vital Signs Date Time Temp Pulse Resp B/P Pulse Ox O2 Delivery O2 Flow Rate FiO2 05/23/17 10:00 74 05/23/17 09:00 72 05/23/17 08:12 98.7 83 16 126/56 94 05/23/17 08:12 94 Room Air 05/23/17 08:00 82 05/23/17 07:00 91 05/23/17 06:08 86 05/23/17 05:13 74 05/23/17 04:00 85 05/23/17 03:28 98.2 85 18 140/66 95 05/23/17 03:04 88 05/23/17 02:00 78 05/23/17 01:10 75 05/23/17 00:02 72 05/22/17 23:20 98.5 80 16 131/64 96 05/22/17 23:20 72 05/22/17 22:13 78 05/22/17 21:00 88 05/22/17 20:00 90 05/22/17 19:22 98.4 98 18 141/55 96 05/22/17 19:22 96 Room Air 05/22/17 19:00 84 05/22/17 18:05 90 05/22/17 17:06 84 05/22/17 16:33 78 18 150/63 95 05/22/17 16:30 88 05/22/17 15:11 14 05/22/17 15:04 95 Room Air 05/22/17 15:03 98.3 81 14 124/60 95 05/22/17 15:03 81 05/22/17 13:05 88 05/22/17 12:29 88 05/22/17 11:45 98.5 80 14 123/53 95 I/O 05/22/17 05/22/17 05/22/17 05/23/17 05/23/17 05/23/17 07:00 15:00 23:00 07:00 15:00 23:00 Intake Total 307 ml 112 ml 753 ml Output Total 300 ml 100 ml 220 ml Balance 7 ml 12 ml 533 ml Intake Oral 240 ml 100 ml 600 ml IV Total 67 ml 12 ml 153 ml Output Urine Total 300 ml 100 ml 220 ml Drainage Total 0 ml # Voids 3 # Bowel Movements 0 0 Result Diagram: 05/23/17 0434 05/23/17 0434 Objective Remarks GENERAL: NAD, A&Ox3 HEAD: Normocephalic. NECK: Supple, trachea midline. No lymphadenopathy. EYES: No scleral icterus. No injection or drainage. CARDIOVASCULAR: Irregularly irregular rhythm with a rate within normal limits, without murmurs, gallops, or rubs. RESPIRATORY: Breath sounds equal bilaterally. No accessory muscle use. GASTROINTESTINAL: Abdomen soft, non-tender, nondistended. MUSCULOSKELETAL: No cyanosis, or edema. SKIN: Warm and dry. NEURO: No focal neurological deficitis. A/P Problem List: (1) Chronic anticoagulation ICD Code: Z79.01 (2) Hypertension ICD Code: I10 (3) A-fib ICD Code: I48.91 (4) Arterial occlusion ICD Code: I74.9 Assessment and Plan Assessment and plan 87-year-old female admitted secondary to right lower extremity arterial occlusion. INR is 1.6 on 05/23/17. Coumadin dosing increased to 7.5 mg daily. Follow INR. Continue heparin drip. Monitor PTT. Diuresis has been discontinued and renal function will be monitored. BMP and CBC ordered. Right lower extremity arterial occlusion Status post embolectomy via right groin Postop pain Following ICU Vascular surgery following Likely etiology is embolism, possibly related to A. fib Continue heparin drip, till Coumadin is therapeutic As needed pain treatments Atrial fibrillation Continue Coumadin Follow INR Follow on telemetry Continue Lopressor 25 mg by mouth twice a day Hypertension Resume baseline treatment Follow blood pressures Presently blood pressure is controlled Continue Lopressor Add back amlodipine and hydrochlorothiazide if needed (not needed currently) Hypothyroidism Continue Synthroid Follow as an outpatient DVT prophylaxis Patient is presently on heparin drip and Coumadin Plan to hold heparin drip and Coumadin is therapeutic Tim Encarnacion MD May 23, 2017 11:22 am
--- NOTE | 2017-05-23 12:49 | PD.CARD.PN ---
Subjective Subjective Remarks Doing well, no complaints Up and ambulating Objective Medications Current Medications Medications (Trade) Dose Ordered Sig/Dipti Route Start Time Stop Time Status Last Admin (NS Flush) 2 ml UNSCH PRN IV FLUSH 05/19/17 05:30 (NS Flush) 2 ml BID IV FLUSH 05/19/17 09:00 05/23/17 08:51 (Tylenol) 650 mg Q6H PRN PO 05/19/17 05:30 (Senokot) 17.2 mg Q12H PRN PO 05/19/17 05:30 (Lactulose Liq) 30 ml DAILY PRN PO 05/19/17 05:30 (Pravachol) 20 mg DAILY PO 05/19/17 09:00 05/23/17 08:05 (Ecotrin Ec) 325 mg DAILY PO 05/20/17 09:00 05/23/17 08:05 (Zofran Inj) 4 mg Q6H PRN IV PUSH 05/19/17 09:45 (Protonix) 40 mg HS PO 05/19/17 21:00 05/22/17 20:21 (Tylenol) 650 mg Q4H PRN PO 05/19/17 09:45 (Milk Of Magnesia Liq) 30 ml DAILY PRN PO 05/19/17 09:45 05/23/17 08:51 (Ambien) 5 mg HS PRN PO 05/19/17 09:45 (Surfak) 240 mg HS PO 05/19/17 21:00 05/22/17 20:21 (Percocet 5-325 Mg) 1 tab Q4H PRN PO 05/19/17 09:45 05/22/17 14:14 (Percocet 10-325 Mg) 1 tab Q4H PRN PO 05/19/17 09:45 05/23/17 08:05 (NovoLIN R SUPPLEMENTAL SCALE) 1 Q6HR SQ 05/19/17 12:00 05/23/17 12:20 (D50w (Vial) Inj) 50 ml UNSCH PRN IV PUSH 05/19/17 09:45 (Glucagon Inj) 1 mg UNSCH PRN OTHER 05/19/17 09:45 Morphine Sulfate 2 mg 2 mg Q4H PRN IV PUSH 05/19/17 18:00 05/19/17 22:56 (Heparin-D5W Inj) 250 ml @ 0 mls/hr TITRATE IV 05/19/17 20:00 05/22/17 06:09 (Synthroid) 100 mcg DAILY@06 PO 05/20/17 06:00 05/23/17 06:13 (Lopressor) 25 mg Q12HR PO 05/21/17 21:00 05/23/17 08:05 (Coumadin) 7.5 mg DAILY@16 PO 05/23/17 16:00 Vital Signs / I&O Vital Signs Date Time Temp Pulse Resp B/P Pulse Ox O2 Delivery O2 Flow Rate FiO2 05/23/17 11:15 98.4 87 16 114/63 96 05/23/17 10:00 74 05/23/17 09:00 72 05/23/17 08:12 98.7 83 16 126/56 94 05/23/17 08:12 94 Room Air 05/23/17 08:00 82 05/23/17 07:00 91 05/23/17 06:08 86 05/23/17 05:13 74 05/23/17 04:00 85 05/23/17 03:28 98.2 85 18 140/66 95 05/23/17 03:04 88 05/23/17 02:00 78 05/23/17 01:10 75 05/23/17 00:02 72 05/22/17 23:20 98.5 80 16 131/64 96 05/22/17 23:20 72 05/22/17 22:13 78 05/22/17 21:00 88 05/22/17 20:00 90 05/22/17 19:22 98.4 98 18 141/55 96 05/22/17 19:22 96 Room Air 05/22/17 19:00 84 05/22/17 18:05 90 05/22/17 17:06 84 05/22/17 16:33 78 18 150/63 95 05/22/17 16:30 88 05/22/17 15:11 14 05/22/17 15:04 95 Room Air 05/22/17 15:03 98.3 81 14 124/60 95 05/22/17 15:03 81 05/22/17 13:05 88 I/O 05/22/17 05/22/17 05/22/17 05/23/17 05/23/178/17 07:00 15:00 23:00 07:00 15:00 23:00 Intake Total 307 ml 112 ml 753 ml Output Total 300 ml 100 ml 220 ml Balance 7 ml 12 ml 533 ml Intake Oral 240 ml 100 ml 600 ml IV Total 67 ml 12 ml 153 ml Output Urine Total 300 ml 100 ml 220 ml Drainage Total 0 ml # Voids 3 # Bowel Movements 0 0 Physical Exam GENERAL: NAD, AAOx3 SKIN: Warm and dry. HEAD: Atraumatic. Normocephalic. EYES: Pupils equal and round. No scleral icterus. No injection or drainage. ENT: No nasal bleeding or discharge. Mucous membranes pink and moist. NECK: Trachea midline. No JVD. CARDIOVASCULAR: Irregularly irregular RESPIRATORY: No accessory muscle use. Minimal rales bilaterally bases GASTROINTESTINAL: Abdomen soft, non-tender, nondistended. Hepatic and splenic margins not palpable. MUSCULOSKELETAL: Right groin with wound vac, DP/PT pulses palpable NEUROLOGICAL: Awake and alert. No obvious cranial nerve deficits. Motor grossly within normal limits. Five out of 5 muscle strength in the arms and legs. Normal speech. PSYCHIATRIC: Appropriate mood and affect; insight and judgment normal. Laboratory Laboratory Tests Test 05/23/17 04:34 White Blood Count 12.5 TH/MM3 Red Blood Count 2.47 MIL/MM3 Hemoglobin 7.6 GM/DL Hematocrit 22.9 % Mean Corpuscular Volume 92.6 FL Mean Corpuscular Hemoglobin 30.5 PG Mean Corpuscular Hemoglobin 33.0 % Concent Red Cell Distribution Width 14.0 % Platelet Count 200 TH/MM3 Mean Platelet Volume 8.5 FL Prothrombin Time 17.7 SEC Prothromb Time International 1.6 RATIO Ratio Sodium Level 136 MEQ/L Potassium Level 4.5 MEQ/L Chloride Level 100 MEQ/L Carbon Dioxide Level 27.6 MEQ/L Anion Gap 8 MEQ/L Blood Urea Nitrogen 34 MG/DL Creatinine 1.25 MG/DL Estimat Glomerular Filtration 41 ML/MIN Rate Random Glucose 97 MG/DL Calcium Level 8.1 MG/DL Assessment and Plan Problem List: (1) Arterial occlusion (2) Hypertension (3) A-fib (4) Chronic anticoagulation Assessment and Plan 1) Doing well after embolectomy 2) Con't heparin drip and Coumadin 3) D/C heparin drip once INR > 2 4) Heart rates now better controlled, would DC on Lopressor BID instead of daily 5) Hold Lasix, slight bump of creatinine, will allow to equilibrate, hold IVF 6) Will follow up with Dr. Gauthier on discharge Philipp Charlton DO May 23, 2017 12:49
[2017-05-23] MEDS: WARFARIN SOD 7.5 MG TAB PO SCH (15:56)
[2017-05-23] MEDS: oxyCODONE/ACETAMINOPHEN 5 MG/325 MG TAB PO PRN (15:56)
[2017-05-23] MEDS: DOCUSATE CALCIUM 240 MG CAP PO SCH (21:00)
[2017-05-23] MEDS: PANTOPRAZOLE SOD 40 MG DELAYED RELEASE TAB PO SCH (21:33)
[2017-05-24] VITALS (30 sets, daily range): BP systolic 102–138; BP diastolic 48–67; PULSE 65–114; RESP 16–18; TEMP 98.2–98.7; O2SAT 95–98
[2017-05-24] MEDS: oxyCODONE/ACETAMINOPHEN 10 MG/325 MG TAB PO PRN ×3 (03:50→21:30)
[2017-05-24 05:38] LABS: MEAN CELL VOLUME 92.1 FL (80.0-100.0); MEAN CORPUSCULAR HEMOGLOBIN 30.6 PG (27.0-34.0); MEAN CORPUSCULAR HGB CONC 33.2 % (32.0-36.0); PLATELET COUNT 224 TH/MM3 (150-450); RED BLOOD COUNT 2.21 MIL/MM3 (4.00-5.30); WHITE BLOOD COUNT 11.3 TH/MM3 (4.0-11.0)
[2017-05-24 05:41] LABS: REVIEW FLAG FINAL
[2017-05-24] MEDS: INSULIN NovoLIN REGULAR SUPPLEMENTAL SCALE SQ SCH ×4 (05:42→21:00)
[2017-05-24 05:44] LABS: HEMATOCRIT 20.3 % (35.0-46.0)
[2017-05-24] MEDS: LEVOTHYROXINE SODIUM 100 MCG TAB PO SCH (05:47)
[2017-05-24 05:58] LABS: APTT (PATIENT) 52.9 SEC (24.3-30.1); INTERNATIONAL NORMALIZED RATIO 2.2 RATIO
[2017-05-24 06:09] LABS: BICARBONATE 28.3 MEQ/L (21.0-32.0); POTASSIUM 4.5 MEQ/L (3.5-5.1)
[2017-05-24] MEDS ORDERED: FUROSEMIDE 20 MG/2 ML VIAL IV PUSH PRN (06:45)
--- NOTE | 2017-05-24 07:48 | PD.VS.PN ---
Subjective POD #: 5 Procedure(s): embolectomy right popliteal artery Subjective/Hospital Course doing well; no complaints Hct drifted down INR 2.2 Objective Vitals/I&O Date Time Temp Pulse Resp B/P Pulse Ox O2 Delivery O2 Flow Rate FiO2 05/24/17 06:00 86 05/24/17 05:00 88 05/24/17 04:00 73 05/24/17 03:50 98.5 79 16 127/58 96 05/24/17 03:00 85 05/24/17 02:00 78 05/24/17 01:00 84 05/24/17 00:00 80 05/23/17 23:40 98.6 75 16 115/55 96 05/23/17 23:00 67 05/23/17 22:00 96 05/23/17 21:00 92 05/23/17 20:50 95 Room Air 05/23/17 20:50 98.8 92 18 148/57 95 05/23/17 20:00 100 05/23/17 19:00 101 05/23/17 18:00 64 05/23/17 17:00 88 05/23/17 16:00 89 05/23/17 15:00 98.2 89 16 127/67 97 05/23/17 15:00 82 05/23/17 14:00 84 05/23/17 13:00 80 05/23/17 12:00 80 05/23/17 11:15 98.4 87 16 114/63 96 05/23/17 11:00 71 05/23/17 10:00 74 05/23/17 09:00 72 05/23/17 08:12 98.7 83 16 126/56 94 05/23/17 08:12 94 Room Air 05/23/17 08:00 82 05/24/17 05/24/17 05/24/17 07:00 15:00 23:00 Intake Total 552 ml Output Total 0 ml Balance 552 ml Exam: R groin edematous, stable palpable pulse Laboratory Laboratory Tests Test 05/24/17 04:51 White Blood Count 11.3 Red Blood Count 2.21 Hemoglobin 6.7 Hematocrit 20.3 Mean Corpuscular Volume 92.1 Mean Corpuscular Hemoglobin 30.6 Mean Corpuscular Hemoglobin 33.2 Concent Red Cell Distribution Width 14.0 Platelet Count 224 Mean Platelet Volume 7.8 Prothrombin Time 25.0 Prothromb Time International 2.2 Ratio Activated Partial 52.9 Thromboplast Time Sodium Level 135 Potassium Level 4.5 Chloride Level 101 Carbon Dioxide Level 28.3 Anion Gap 6 Blood Urea Nitrogen 39 Creatinine 1.20 Estimat Glomerular Filtration 43 Rate Random Glucose 115 Calcium Level 7.7 Assessment and Plan Assessment: (1) Arterial occlusion Status: Acute Plan groin fullness, no hematoma INR 2.2 - off hep gtt continue PT/OOB Suman Osei MD May 24, 2017 07:48
[2017-05-24] MEDS: SODIUM CHLORIDE 0.9% FLUSH 10 ML FLUSH IV FLUSH SCH ×2 (09:00→21:31)
[2017-05-24] MEDS: ASPIRIN EC 325 MG TABEC PO SCH (09:26)
[2017-05-24] MEDS: PRAVASTATIN SOD 20 MG TAB PO SCH (09:26)
[2017-05-24] MEDS: METOPROLOL TARTRATE 25 MG TAB PO SCH ×2 (09:26→21:30)
--- NOTE | 2017-05-24 09:39 | HHI.PR ---
Subjective Remarks complains of some pain right groin site no nausea or vomiting very motivated with therapy Objective Vitals Vital Signs Date Time Temp Pulse Resp B/P Pulse Ox O2 Delivery O2 Flow Rate FiO2 05/24/17 06:00 86 05/24/17 05:00 88 05/24/17 04:00 73 05/24/17 03:50 98.5 79 16 127/58 96 05/24/17 03:00 85 05/24/17 02:00 78 05/24/17 01:00 84 05/24/17 00:00 80 05/23/17 23:40 98.6 75 16 115/55 96 05/23/17 23:00 67 05/23/17 22:00 96 05/23/17 21:00 92 05/23/17 20:50 95 Room Air 05/23/17 20:50 98.8 92 18 148/57 95 05/23/17 20:00 100 05/23/17 19:00 101 05/23/17 18:00 64 05/23/17 17:00 88 05/23/17 16:00 89 05/23/17 15:00 98.2 89 16 127/67 97 05/23/17 15:00 82 05/23/17 14:00 84 05/23/17 13:00 80 05/23/17 12:00 80 05/23/17 11:15 98.4 87 16 114/63 96 05/23/17 11:00 71 05/23/17 10:00 74 I/O 05/23/17 05/23/17 05/23/17 05/24/17 05/24/17 05/24/17 07:00 15:00 23:00 07:00 15:00 23:00 Intake Total 753 ml 1319 ml 552 ml Output Total 220 ml 8 ml 0 ml Balance 533 ml 1311 ml 552 ml Intake Oral 600 ml 1200 ml 480 ml IV Total 153 ml 119 ml 72 ml Output Urine Total 220 ml 3 ml Drainage Total 0 ml 5 ml 0 ml # Voids 3 3 # Bowel Movements 0 1 3 Result Diagram: 05/24/17 0451 05/24/17 0451 Imaging Last Impressions Aorta w/Runoff CTA 05/19/17 0000 Signed Impressions: Service Date/Time: Friday, May 19, 2017 04:55 - CONCLUSION: 1. 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 2. Multiple bilateral renal cysts and hepatic cysts. 3. 2.7 cm right adnexal cyst. Mike Fonseca MD Objective Remarks GENERAL: awake and alert, oriented x 3 SKIN: Warm and dry. HEAD: Normocephalic.anicteric EYES: No scleral icterus. No injection or drainage. NECK: Supple, trachea midline. No JVD or lymphadenopathy. CARDIOVASCULAR:irregularly irregular rhythm RESPIRATORY: Breath sounds equal bilaterally. No accessory muscle use. GASTROINTESTINAL: Abdomen soft, non-tender, nondistended. MUSCULOSKELETAL: No cyanosis, or edema. , right groin with swelling, stitches in place, no cyanosis ++ femoral and popliteal pulses. bilateral Procedures 05/23- embolectomy right popliteal artery A/P Problem List: (1) Arterial occlusion ICD Code: I74.9 Status: Acute (2) A-fib ICD Code: I48.91 Status: Chronic (3) Hypertension ICD Code: I10 Status: Acute Assessment and Plan 87-year-old female admitted secondary to right lower extremity arterial occlusion. INR is 1.6 on 05/23/17. Coumadin dosing increased to 7.5 mg daily. Follow INR. Continue heparin drip. Monitor PTT. Diuresis has been discontinued and renal function will be monitored. BMP and CBC ordered. Acute arterial occlusion right popliteal artery S/P embolectomy 05/23 Postop pain Vascular surgery following- on coumadin, FF INR As needed pain treatments Acute anemia post procedure for 2 units RBC transfusion - ff H and H Atrial fibrillation-chronic rate controlled Continue Coumadin Follow INR Follow on telemetry Continue Lopressor 25 mg by mouth twice a day Hypertension Continue Lopressor Add back amlodipine and hydrochlorothiazide if needed (not needed currently) Hypothyroidism Continue Synthroid Follow as an outpatient Acute Kidney Insufficiency -ff BMP- encourage po fluids. creatinine stabilizing DVT prophylaxis Patient is presently on Coumadin PT consult Yanni Alonso MD May 24, 2017 09:38
[2017-05-24] MEDS: WARFARIN SOD 7.5 MG TAB PO SCH (15:32)
--- NOTE | 2017-05-24 15:32 | PD.CARD.PN ---
Subjective Subjective Remarks No events overnight No chest pain/SOB Objective Medications Current Medications Medications (Trade) Dose Ordered Sig/Dipti Route Start Time Stop Time Status Last Admin (NS Flush) 2 ml UNSCH PRN IV FLUSH 05/19/17 05:30 (NS Flush) 2 ml BID IV FLUSH 05/19/17 09:00 05/24/17 09:00 (Tylenol) 650 mg Q6H PRN PO 05/19/17 05:30 (Senokot) 17.2 mg Q12H PRN PO 05/19/17 05:30 (Lactulose Liq) 30 ml DAILY PRN PO 05/19/17 05:30 (Pravachol) 20 mg DAILY PO 05/19/17 09:00 05/24/17 09:26 (Ecotrin Ec) 325 mg DAILY PO 05/20/17 09:00 05/24/17 09:26 (Zofran Inj) 4 mg Q6H PRN IV PUSH 05/19/17 09:45 (Protonix) 40 mg HS PO 05/19/17 21:00 05/23/17 21:33 (Tylenol) 650 mg Q4H PRN PO 05/19/17 09:45 (Milk Of Magnesia Liq) 30 ml DAILY PRN PO 05/19/17 09:45 05/23/17 08:51 (Ambien) 5 mg HS PRN PO 05/19/17 09:45 (Surfak) 240 mg HS PO 05/19/17 21:00 05/22/17 20:21 (Percocet 5-325 Mg) 1 tab Q4H PRN PO 05/19/17 09:45 05/23/17 15:56 (Percocet 10-325 Mg) 1 tab Q4H PRN PO 05/19/17 09:45 05/24/17 09:27 (D50w (Vial) Inj) 50 ml UNSCH PRN IV PUSH 05/19/17 09:45 (Glucagon Inj) 1 mg UNSCH PRN OTHER 05/19/17 09:45 (Morphine Inj) 2 mg Q4H PRN IV PUSH 05/19/17 18:00 05/19/17 22:56 (Synthroid) 100 mcg DAILY@06 PO 05/20/17 06:00 05/24/17 05:47 (Lopressor) 25 mg Q12HR PO 05/21/17 21:00 05/24/17 09:26 (Coumadin) 7.5 mg DAILY@16 PO 05/23/17 16:00 05/23/17 15:56 (NovoLIN R SUPPLEMENTAL SCALE) 1 ACHS SQ 05/24/17 16:00 Vital Signs / I&O Vital Signs Date Time Temp Pulse Resp B/P Pulse Ox O2 Delivery O2 Flow Rate FiO2 05/24/17 15:10 72 05/24/17 15:10 98.6 66 16 117/63 95 05/24/17 14:45 98.6 66 16 117/63 95 05/24/17 14:06 77 05/24/17 13:34 71 05/24/17 12:16 65 05/24/17 11:43 98.3 75 16 102/48 96 05/24/17 11:35 98.4 78 16 113/48 98 05/24/17 11:33 98.4 87 16 113/64 97 05/24/17 11:32 98.2 83 18 129/62 98 05/24/17 11:00 98.4 110 16 108/52 98 05/24/17 11:00 79 05/24/17 10:35 16 05/24/17 10:00 114 05/24/17 09:00 103 05/24/17 08:15 98.4 114 18 120/58 98 05/24/17 08:15 97 05/24/17 06:00 86 05/24/17 05:00 88 05/24/17 04:00 73 05/24/17 03:50 98.5 79 16 127/58 96 05/24/17 03:00 85 05/24/17 02:00 78 05/24/17 01:00 84 05/24/17 00:00 80 05/23/17 23:40 98.6 75 16 115/55 96 05/23/17 23:00 67 05/23/17 22:00 96 05/23/17 21:00 92 05/23/17 20:50 95 Room Air 05/23/17 20:50 98.8 92 18 148/57 95 05/23/17 20:00 100 05/23/17 19:00 101 05/23/17 18:00 64 05/23/17 17:00 88 05/23/17 16:00 89 I/O 05/23/17 05/23/17 05/23/17 05/24/17 05/24/17 05/24/17 07:00 15:00 23:00 07:00 15:00 23:00 Intake Total 753 ml 1319 ml 552 ml Output Total 220 ml 8 ml 0 ml Balance 533 ml 1311 ml 552 ml Intake Oral 600 ml 1200 ml 480 ml IV Total 153 ml 119 ml 72 ml Output Urine Total 220 ml 3 ml Drainage Total 0 ml 5 ml 0 ml # Voids 3 3 # Bowel Movements 0 1 3 Physical Exam GENERAL: NAD, AAOx3 SKIN: Warm and dry. HEAD: Atraumatic. Normocephalic. EYES: Pupils equal and round. No scleral icterus. No injection or drainage. ENT: No nasal bleeding or discharge. Mucous membranes pink and moist. NECK: Trachea midline. No JVD. CARDIOVASCULAR: Irregularly irregular RESPIRATORY: No accessory muscle use. Minimal rales bilaterally bases GASTROINTESTINAL: Abdomen soft, non-tender, nondistended. Hepatic and splenic margins not palpable. MUSCULOSKELETAL: Right groin with wound vac, DP/PT pulses palpable NEUROLOGICAL: Awake and alert. No obvious cranial nerve deficits. Motor grossly within normal limits. Five out of 5 muscle strength in the arms and legs. Normal speech. PSYCHIATRIC: Appropriate mood and affect; insight and judgment normal. Laboratory Laboratory Tests Test 05/24/17 05/24/17 04:51 08:53 White Blood Count 11.3 TH/MM3 Red Blood Count 2.21 MIL/MM3 Hemoglobin 6.7 GM/DL Hematocrit 20.3 % Mean Corpuscular Volume 92.1 FL Mean Corpuscular Hemoglobin 30.6 PG Mean Corpuscular Hemoglobin 33.2 % Concent Red Cell Distribution Width 14.0 % Platelet Count 224 TH/MM3 Mean Platelet Volume 7.8 FL Prothrombin Time 25.0 SEC Prothromb Time International 2.2 RATIO Ratio Activated Partial 52.9 SEC Thromboplast Time Sodium Level 135 MEQ/L Potassium Level 4.5 MEQ/L Chloride Level 101 MEQ/L Carbon Dioxide Level 28.3 MEQ/L Anion Gap 6 MEQ/L Blood Urea Nitrogen 39 MG/DL Creatinine 1.20 MG/DL Estimat Glomerular Filtration 43 ML/MIN Rate Random Glucose 115 MG/DL Calcium Level 7.7 MG/DL Blood Type A NEGATIVE Antibody Screen NEGATIVE Crossmatch Leukocyte-Reduced Red Blood Cells Blood Bank Comment Assessment and Plan Problem List: (1) Arterial occlusion (2) Hypertension (3) A-fib (4) Chronic anticoagulation Assessment and Plan 1) Doing well after embolectomy 2) Con't heparin drip and Coumadin 3) D/C heparin drip once INR > 2 4) Heart rates now better controlled, would DC on Lopressor BID instead of daily 5) Hold Lasix, slight bump of creatinine, will allow to equilibrate, hold IVF 6) Will follow up with Dr. Gauthier on discharge 7) Drop in Hgb, plan for 2 units of PRBC with Lasix in between Philipp Charlton DO May 24, 2017 15:32
[2017-05-24] MEDS ORDERED: FUROSEMIDE 20 MG/2 ML VIAL IV PUSH ONE (16:30)
[2017-05-24] MEDS: PANTOPRAZOLE SOD 40 MG DELAYED RELEASE TAB PO SCH (21:00)
[2017-05-24] MEDS: DOCUSATE CALCIUM 240 MG CAP PO SCH (21:00)
[2017-05-25] VITALS (28 sets, daily range): BP systolic 123–144; BP diastolic 51–62; PULSE 68–92; RESP 16–18; TEMP 97.5–98.9; O2SAT 95–98
[2017-05-25] MEDS: oxyCODONE/ACETAMINOPHEN 5 MG/325 MG TAB PO PRN ×2 (03:20→10:09)
[2017-05-25] MEDS: INSULIN NovoLIN REGULAR SUPPLEMENTAL SCALE SQ SCH ×4 (05:33→21:00)
[2017-05-25] MEDS: LEVOTHYROXINE SODIUM 100 MCG TAB PO SCH (05:40)
[2017-05-25 07:06] LABS: HEMATOCRIT 28.8 % (35.0-46.0); MEAN CELL VOLUME 90.1 FL (80.0-100.0); MEAN CORPUSCULAR HEMOGLOBIN 30.1 PG (27.0-34.0); MEAN CORPUSCULAR HGB CONC 33.4 % (32.0-36.0); PLATELET COUNT 274 TH/MM3 (150-450); RED CELL DISTRIBUTION WIDTH 14.8 % (11.6-17.2); REVIEW FLAG FINAL; WHITE BLOOD COUNT 12.2 TH/MM3 (4.0-11.0)
[2017-05-25] MEDS: METOPROLOL TARTRATE 25 MG TAB PO SCH ×2 (08:40→21:50)
[2017-05-25] MEDS: PRAVASTATIN SOD 20 MG TAB PO SCH (08:40)
[2017-05-25] MEDS: SODIUM CHLORIDE 0.9% FLUSH 10 ML FLUSH IV FLUSH SCH ×2 (08:40→21:46)
[2017-05-25] MEDS: ASPIRIN EC 325 MG TABEC PO SCH (08:40)
--- NOTE | 2017-05-25 09:48 | PD.VS.PN ---
Subjective POD #: 6 Procedure(s): embolectomy right popliteal artery Subjective/Hospital Course Pt OOB to chair Pt alert Incision intact to R groin Pt c/o mild swelling and pain to RLE Objective Vitals/I&O Date Time Temp Pulse Resp B/P Pulse Ox O2 Delivery O2 Flow Rate FiO2 05/25/17 07:00 85 05/25/17 06:00 72 05/25/17 05:00 73 05/25/17 04:00 70 05/25/17 03:20 98.5 79 16 144/62 95 05/25/17 03:00 90 05/25/17 02:00 69 05/25/17 01:00 83 05/25/17 00:00 72 05/24/17 23:30 98.3 79 16 120/62 96 05/24/17 23:00 82 05/24/17 22:00 82 05/24/17 21:00 100 05/24/17 21:00 98.7 94 18 138/67 96 05/24/17 20:00 86 05/24/17 19:00 87 05/24/17 18:03 90 05/24/17 17:31 80 05/24/17 16:16 76 05/24/17 15:10 72 05/24/17 15:10 98.6 66 16 117/63 95 05/24/17 14:45 98.6 66 16 117/63 95 05/24/17 14:06 77 05/24/17 13:34 71 05/24/17 12:16 65 05/24/17 11:43 98.3 75 16 102/48 96 05/24/17 11:35 98.4 78 16 113/48 98 05/24/17 11:33 98.4 87 16 113/64 97 05/24/17 11:32 98.2 83 18 129/62 98 05/24/17 11:00 98.4 110 16 108/52 98 05/24/17 11:00 79 05/24/17 10:35 16 05/24/17 10:00 114 05/25/17 05/25/17 05/25/17 06:59 14:59 22:59 Intake Total 300 ml Output Total 400 ml Balance -100 ml Exam: GENERAL: alert in nad SKIN: Warm and dry/ Right groin incision intact with erythema present at the incision line GASTROINTESTINAL: Abdomen soft, non-tender, nondistended. MUSCULOSKELETAL: No cyanosis, slight edema to RLE with bruising near medial aspect of upper thigh LE warm w/ motor intact + phasic R DP/PT Laboratory Laboratory Tests Test 05/25/17 05:12 White Blood Count 12.2 Red Blood Count 3.20 Hemoglobin 9.6 Hematocrit 28.8 Mean Corpuscular Volume 90.1 Mean Corpuscular Hemoglobin 30.1 Mean Corpuscular Hemoglobin 33.4 Concent Red Cell Distribution Width 14.8 Platelet Count 274 Mean Platelet Volume 7.8 Assessment and Plan Assessment: (1) Arterial occlusion Status: Acute Plan groin fullness, no hematoma Plan Continue PT/OOB D/C planning Pt agreed to Rehab once D/C Sofia ABRAHAM [facility] [phone] Sofia Barron May 25, 2017 09:48
--- NOTE | 2017-05-25 14:50 | HHI.PR ---
Subjective Remarks + mild pain - right groin area Objective Vitals Vital Signs Date Time Temp Pulse Resp B/P Pulse Ox O2 Delivery O2 Flow Rate FiO2 05/25/17 10:00 68 05/25/17 09:00 70 05/25/17 08:00 92 05/25/17 07:00 85 05/25/17 06:00 72 05/25/17 05:00 73 05/25/17 04:00 70 05/25/17 03:20 98.5 79 16 144/62 95 05/25/17 03:00 90 05/25/17 02:00 69 05/25/17 01:00 83 05/25/17 00:00 72 05/24/17 23:30 98.3 79 16 120/62 96 05/24/17 23:00 82 05/24/17 22:00 82 05/24/17 21:00 100 05/24/17 21:00 98.7 94 18 138/67 96 05/24/17 20:00 86 05/24/17 19:00 87 05/24/17 18:03 90 05/24/17 17:31 80 05/24/17 16:16 76 05/24/17 15:10 72 05/24/17 15:10 98.6 66 16 117/63 95 I/O 05/24/17 05/24/17 05/24/17 05/25/17 05/25/17 05/25/17 07:00 15:00 23:00 07:00 15:00 23:00 Intake Total 552 ml 1030 ml 300 ml Output Total 0 ml 700 ml 400 ml Balance 552 ml 330 ml -100 ml Intake Oral 480 ml 480 ml 300 ml IV Total 72 ml 550 ml 0 ml Output Urine Total 700 ml 400 ml Drainage Total 0 ml # Voids 3 # Bowel Movements 3 2 2 Result Diagram: 05/25/17 0512 05/24/17 0451 Imaging Last Impressions Aorta w/Runoff CTA 05/19/17 0000 Signed Impressions: Service Date/Time: Friday, May 19, 2017 04:55 - CONCLUSION: 1. 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 2. Multiple bilateral renal cysts and hepatic cysts. 3. 2.7 cm right adnexal cyst. Mike Fonseca MD Objective Remarks GENERAL: awake and alert, oriented x 3 SKIN: Warm and dry. HEAD: Normocephalic.anicteric EYES: No scleral icterus. No injection or drainage. NECK: Supple, trachea midline. No JVD or lymphadenopathy. CARDIOVASCULAR:irregularly irregular rhythm RESPIRATORY: Breath sounds equal bilaterally. No accessory muscle use. GASTROINTESTINAL: Abdomen soft, non-tender, nondistended. MUSCULOSKELETAL: No cyanosis, or edema. , right groin with swelling, stitches in place, no cyanosis ++ femoral and popliteal pulses. bilateral Procedures 05/23- embolectomy right popliteal artery A/P Problem List: (1) Arterial occlusion ICD Code: I74.9 Status: Acute (2) A-fib ICD Code: I48.91 Status: Chronic (3) Hypertension ICD Code: I10 Status: Acute Assessment and Plan 87-year-old female admitted secondary to right lower extremity arterial occlusion. INR is 1.6 on 05/23/17. Coumadin dosing increased to 7.5 mg daily. Follow INR. Continue heparin drip. Monitor PTT. Diuresis has been discontinued and renal function will be monitored. BMP and CBC ordered. Acute arterial occlusion right popliteal artery S/P embolectomy 05/23 Postop pain Vascular surgery following- on coumadin, FF INR As needed pain treatments Acute anemia post procedure- resolved Atrial fibrillation-chronic rate controlled Continue Coumadin Follow INR Follow on telemetry Continue Lopressor 25 mg by mouth twice a day Hypertension Continue Lopressor Add back amlodipine and hydrochlorothiazide if needed (not needed currently) Hypothyroidism Continue Synthroid Follow as an outpatient Acute Kidney Insufficiency -ff BMP- encourage po fluids. creatinine stabilizing DVT prophylaxis Patient is presently on Coumadin PT consult Yanni Alonso MD May 25, 2017 14:50
[2017-05-25] MEDS: WARFARIN SOD 7.5 MG TAB PO SCH (16:00)
[2017-05-25 18:10] LABS: INTERNATIONAL NORMALIZED RATIO 3.9 RATIO; PROTHROMBIN TIME - PATIENT 46.2 SEC (9.8-11.6)
--- NOTE | 2017-05-25 18:20 | PD.CARD.PN ---
Subjective Subjective Remarks No events overnight No complaints Up and moving Objective Medications Current Medications Medications (Trade) Dose Ordered Sig/Dipti Route Start Time Stop Time Status Last Admin (NS Flush) 2 ml UNSCH PRN IV FLUSH 05/19/17 05:30 (NS Flush) 2 ml BID IV FLUSH 05/19/17 09:00 05/25/17 08:40 (Tylenol) 650 mg Q6H PRN PO 05/19/17 05:30 (Senokot) 17.2 mg Q12H PRN PO 05/19/17 05:30 (Lactulose Liq) 30 ml DAILY PRN PO 05/19/17 05:30 (Pravachol) 20 mg DAILY PO 05/19/17 09:00 05/25/17 08:40 (Ecotrin Ec) 325 mg DAILY PO 05/20/17 09:00 05/25/17 08:40 (Zofran Inj) 4 mg Q6H PRN IV PUSH 05/19/17 09:45 (Protonix) 40 mg HS PO 05/19/17 21:00 05/24/17 21:00 (Tylenol) 650 mg Q4H PRN PO 05/19/17 09:45 (Milk Of Magnesia Liq) 30 ml DAILY PRN PO 05/19/17 09:45 05/23/17 08:51 (Ambien) 5 mg HS PRN PO 05/19/17 09:45 (Surfak) 240 mg HS PO 05/19/17 21:00 05/22/17 20:21 (Percocet 5-325 Mg) 1 tab Q4H PRN PO 05/19/17 09:45 05/25/17 10:09 (Percocet 10-325 Mg) 1 tab Q4H PRN PO 05/19/17 09:45 05/24/17 21:30 (D50w (Vial) Inj) 50 ml UNSCH PRN IV PUSH 05/19/17 09:45 (Glucagon Inj) 1 mg UNSCH PRN OTHER 05/19/17 09:45 (Morphine Inj) 2 mg Q4H PRN IV PUSH 05/19/17 18:00 05/19/17 22:56 (Synthroid) 100 mcg DAILY@06 PO 05/20/17 06:00 05/25/17 05:40 (Lopressor) 25 mg Q12HR PO 05/21/17 21:00 05/25/17 08:40 (Coumadin) 7.5 mg DAILY@16 PO 05/23/17 16:00 05/24/17 15:32 (NovoLIN R SUPPLEMENTAL SCALE) 1 ACHS SQ 05/24/17 16:00 05/24/17 15:33 Vital Signs / I&O Vital Signs Date Time Temp Pulse Resp B/P Pulse Ox O2 Delivery O2 Flow Rate FiO2 05/25/17 17:00 80 05/25/17 16:00 86 05/25/17 15:20 98.5 84 18 131/51 96 05/25/17 15:00 85 05/25/17 14:00 86 05/25/17 13:00 73 05/25/17 12:00 72 05/25/17 11:05 97.5 80 16 123/62 98 05/25/17 11:00 85 05/25/17 10:00 68 05/25/17 09:00 70 05/25/17 08:00 92 05/25/17 07:42 98.0 86 17 125/58 97 05/25/17 07:00 85 05/25/17 06:00 72 05/25/17 05:00 73 05/25/17 04:00 70 05/25/17 03:20 98.5 79 16 144/62 95 05/25/17 03:00 90 05/25/17 02:00 69 05/25/17 01:00 83 05/25/17 00:00 72 05/24/17 23:30 98.3 79 16 120/62 96 05/24/17 23:00 82 05/24/17 22:00 82 05/24/17 21:00 100 05/24/17 21:00 98.7 94 18 138/67 96 05/24/17 20:00 86 05/24/17 19:00 87 I/O 05/24/17 05/24/17 05/24/17 05/25/17 05/25/17 05/25/17 06:59 14:59 22:59 06:59 14:59 22:59 Intake Total 552 ml 1030 ml 300 ml 740 ml Output Total 0 ml 700 ml 400 ml 450 ml Balance 552 ml 330 ml -100 ml 290 ml Intake Oral 480 ml 480 ml 300 ml 740 ml IV Total 72 ml 550 ml 0 ml Output Urine Total 700 ml 400 ml 450 ml Drainage Total 0 ml # Voids 3 2 # Bowel Movements 3 2 2 Physical Exam GENERAL: NAD, AAOx3 SKIN: Warm and dry. HEAD: Atraumatic. Normocephalic. EYES: Pupils equal and round. No scleral icterus. No injection or drainage. ENT: No nasal bleeding or discharge. Mucous membranes pink and moist. NECK: Trachea midline. No JVD. CARDIOVASCULAR: Irregularly irregular RESPIRATORY: No accessory muscle use. Minimal rales bilaterally bases GASTROINTESTINAL: Abdomen soft, non-tender, nondistended. Hepatic and splenic margins not palpable. MUSCULOSKELETAL: Right groin with wound vac, DP/PT pulses palpable NEUROLOGICAL: Awake and alert. No obvious cranial nerve deficits. Motor grossly within normal limits. Five out of 5 muscle strength in the arms and legs. Normal speech. PSYCHIATRIC: Appropriate mood and affect; insight and judgment normal. Laboratory Laboratory Tests Test 05/25/17 05:12 White Blood Count 12.2 TH/MM3 Red Blood Count 3.20 MIL/MM3 Hemoglobin 9.6 GM/DL Hematocrit 28.8 % Mean Corpuscular Volume 90.1 FL Mean Corpuscular Hemoglobin 30.1 PG Mean Corpuscular Hemoglobin 33.4 % Concent Red Cell Distribution Width 14.8 % Platelet Count 274 TH/MM3 Mean Platelet Volume 7.8 FL Assessment and Plan Problem List: (1) Arterial occlusion (2) Hypertension (3) A-fib (4) Chronic anticoagulation Assessment and Plan 1) Doing well after embolectomy 2) Con't heparin drip and Coumadin 3) D/C heparin drip once INR > 2 4) Heart rates now better controlled, would DC on Lopressor BID instead of daily 5) Received 2 units PRBC, Hgb responded appropriately Lasix in between units 6) No longer fluid overloaded 7) Follow up with Dr. Gauthier on discharge Philipp Charlton DO May 25, 2017 18:19
[2017-05-25] MEDS: DOCUSATE CALCIUM 240 MG CAP PO SCH (21:00)
[2017-05-25] MEDS: oxyCODONE/ACETAMINOPHEN 10 MG/325 MG TAB PO PRN (21:45)
[2017-05-25] MEDS: PANTOPRAZOLE SOD 40 MG DELAYED RELEASE TAB PO SCH (21:50)
[2017-05-26] VITALS (29 sets, daily range): BP systolic 122–148; BP diastolic 63–83; PULSE 60–100; RESP 16–20; TEMP 98–98.9; O2SAT 95–99
[2017-05-26] MEDS: oxyCODONE/ACETAMINOPHEN 10 MG/325 MG TAB PO PRN ×3 (02:39→20:32)
[2017-05-26] MEDS: LEVOTHYROXINE SODIUM 100 MCG TAB PO SCH (06:26)
[2017-05-26] MEDS: oxyCODONE/ACETAMINOPHEN 5 MG/325 MG TAB PO PRN (06:26)
[2017-05-26] MEDS: INSULIN NovoLIN REGULAR SUPPLEMENTAL SCALE SQ SCH ×4 (06:30→20:41)
[2017-05-26] MEDS: ASPIRIN EC 325 MG TABEC PO SCH (08:26)
[2017-05-26] MEDS: PRAVASTATIN SOD 20 MG TAB PO SCH (08:26)
[2017-05-26] MEDS: SODIUM CHLORIDE 0.9% FLUSH 10 ML FLUSH IV FLUSH SCH ×2 (08:26→20:32)
[2017-05-26] MEDS: METOPROLOL TARTRATE 25 MG TAB PO SCH ×2 (08:26→20:32)
--- NOTE | 2017-05-26 10:19 | PD.VS.PN ---
Subjective POD #: 7 Procedure(s): embolectomy right popliteal artery Subjective/Hospital Course Incision intact to R groin w/o drainage Pt c/o mild swelling and pain to RLE near incision site LE warm w/ motor intact Objective Vitals/I&O Date Time Temp Pulse Resp B/P Pulse Ox O2 Delivery O2 Flow Rate FiO2 05/26/17 08: 98.2 83 18 133/64 95 05/26/17 07:01 70 05/26/17 05:39 98.7 80 16 97 05/26/17 05:00 74 05/26/17 04:00 72 05/26/17 03:00 80 05/26/17 02:00 80 05/26/17 01:00 76 05/26/17 00:58 98.9 76 16 143/83 97 05/26/17 00:00 70 05/25/17 23:00 78 05/25/17 21:00 86 05/25/17 20:15 98.9 92 16 128/60 98 05/25/17 20:00 92 05/25/17 19:00 86 05/25/17 18:44 79 05/25/17 17:00 80 05/25/17 16:00 86 05/25/17 15:20 98.5 84 18 131/51 96 05/25/17 15:00 85 05/25/17 14:00 86 05/25/17 13:00 73 05/25/17 12:00 72 05/25/17 11:05 97.5 80 16 123/62 98 05/25/17 11:00 85 05/26/17 05/26/17 05/26/17 07:00 15:00 23:00 Intake Total 240 ml Output Total 400 ml Balance -160 ml Exam: GENERAL: alert in nad SKIN: Warm and dry/ Right groin incision intact with erythema present at the incision line, No d/s/o GASTROINTESTINAL: Abdomen soft, non-tender, nondistended. MUSCULOSKELETAL: No cyanosis, slight edema to RLE LE warm w/ motor intact + phasic R DP/PT palpable L DP Laboratory Laboratory Tests Test 05/25/17 17:13 Prothrombin Time 46.2 Prothromb Time International 3.9 Ratio Assessment and Plan Assessment: (1) Arterial occlusion Status: Acute Plan Groin fullness, no hematoma Plan D/C planning once medically cleared Continue PT Will arrange out patient follow up Sofia ABRAHAM [facility] [phone] Sofia Barron May 26, 2017 10:19
--- NOTE | 2017-05-26 12:35 | PD.CARD.PN ---
Subjective Subjective Remarks No events overnight Up and ambulating Objective Medications Current Medications Medications (Trade) Dose Ordered Sig/Dipti Route Start Time Stop Time Status Last Admin (NS Flush) 2 ml UNSCH PRN IV FLUSH 05/19/17 05:30 (NS Flush) 2 ml BID IV FLUSH 05/19/17 09:00 05/26/17 08:26 (Tylenol) 650 mg Q6H PRN PO 05/19/17 05:30 (Senokot) 17.2 mg Q12H PRN PO 05/19/17 05:30 (Lactulose Liq) 30 ml DAILY PRN PO 05/19/17 05:30 (Pravachol) 20 mg DAILY PO 05/19/17 09:00 05/26/17 08:26 (Ecotrin Ec) 325 mg DAILY PO 05/20/17 09:00 05/26/17 08:26 (Zofran Inj) 4 mg Q6H PRN IV PUSH 05/19/17 09:45 (Protonix) 40 mg HS PO 05/19/17 21:00 05/25/17 21:50 (Tylenol) 650 mg Q4H PRN PO 05/19/17 09:45 (Milk Of Magnesia Liq) 30 ml DAILY PRN PO 05/19/17 09:45 05/23/17 08:51 (Ambien) 5 mg HS PRN PO 05/19/17 09:45 (Surfak) 240 mg HS PO 05/19/17 21:00 05/22/17 20:21 (Percocet 5-325 Mg) 1 tab Q4H PRN PO 05/19/17 09:45 05/26/17 06:26 (Percocet 10-325 Mg) 1 tab Q4H PRN PO 05/19/17 09:45 05/26/17 10:11 (D50w (Vial) Inj) 50 ml UNSCH PRN IV PUSH 05/19/17 09:45 (Glucagon Inj) 1 mg UNSCH PRN OTHER 05/19/17 09:45 (Morphine Inj) 2 mg Q4H PRN IV PUSH 05/19/17 18:00 05/19/17 22:56 (Synthroid) 100 mcg DAILY@06 PO 05/20/17 06:00 05/26/17 06:26 (Lopressor) 25 mg Q12HR PO 05/21/17 21:00 05/26/17 08:26 (Coumadin) 7.5 mg DAILY@16 PO 05/23/17 16:00 Hold 05/24/17 15:32 (NovoLIN R SUPPLEMENTAL SCALE) 1 ACHS SQ 05/24/17 16:00 05/24/17 15:33 Vital Signs / I&O Vital Signs Date Time Temp Pulse Resp B/P Pulse Ox O2 Delivery O2 Flow Rate FiO2 05/26/17 12:01 60 05/26/17 11:15 98.0 71 18 122/71 99 05/26/17 11:00 66 05/26/17 10:00 74 05/26/17 09:00 100 05/26/17 08:15 98.2 83 18 133/64 95 05/26/17 08:00 78 05/26/17 07:01 70 05/26/17 05:39 98.7 80 16 97 05/26/17 05:00 74 05/26/17 04:00 72 05/26/17 03:00 80 05/26/17 02:00 80 05/26/17 01:00 76 05/26/17 00:58 98.9 76 16 143/83 97 05/26/17 00:00 70 05/25/17 23:00 78 05/25/17 21:00 86 05/25/17 20:15 98.9 92 16 128/60 98 05/25/17 20:00 92 05/25/17 19:00 86 05/25/17 18:44 79 05/25/17 17:00 80 05/25/17 16:00 86 05/25/17 15:20 98.5 84 18 131/51 96 05/25/17 15:00 85 05/25/17 14:00 86 05/25/17 13:00 73 I/O 05/25/17 05/25/17 05/25/17 05/26/17 05/26/17 05/26/17 07:00 15:00 23:00 07:00 15:00 23:00 Intake Total 300 ml 740 ml 240 ml Output Total 400 ml 450 ml 400 ml Balance -100 ml 290 ml -160 ml Intake Oral 300 ml 740 ml 240 ml IV Total 0 ml Output Urine Total 400 ml 450 ml 400 ml # Voids 2 # Bowel Movements 2 1 Physical Exam GENERAL: NAD, AAOx3 SKIN: Warm and dry. HEAD: Atraumatic. Normocephalic. EYES: Pupils equal and round. No scleral icterus. No injection or drainage. ENT: No nasal bleeding or discharge. Mucous membranes pink and moist. NECK: Trachea midline. No JVD. CARDIOVASCULAR: Irregularly irregular RESPIRATORY: No accessory muscle use. CTA B/L GASTROINTESTINAL: Abdomen soft, non-tender, nondistended. Hepatic and splenic margins not palpable. MUSCULOSKELETAL: Right groin with wound vac, DP/PT pulses palpable NEUROLOGICAL: Awake and alert. No obvious cranial nerve deficits. Motor grossly within normal limits. Five out of 5 muscle strength in the arms and legs. Normal speech. PSYCHIATRIC: Appropriate mood and affect; insight and judgment normal. Laboratory Laboratory Tests Test 05/25/17 17:13 Prothrombin Time 46.2 SEC Prothromb Time International 3.9 RATIO Ratio Assessment and Plan Problem List: (1) Arterial occlusion (2) Hypertension (3) A-fib (4) Chronic anticoagulation Assessment and Plan 1) Doing well after embolectomy 2) Con't Coumadin 3) Heart rates now better controlled, would DC on Lopressor BID instead of daily 4) Received 2 units PRBC, Hgb responded appropriately Lasix in between units 5) No longer fluid overloaded 6) Follow up with Dr. Gauthier on discharge 7) Plan rehab tomorrow, no further cardiovascular issues, call with questions Philipp Charlton DO May 26, 2017 12:35
--- NOTE | 2017-05-26 14:08 | HHI.PR ---
Subjective Remarks patient doing very well, ambulating good po pain controlled Objective Vitals Vital Signs Date Time Temp Pulse Resp B/P Pulse Ox O2 Delivery O2 Flow Rate FiO2 05/26/17 12:01 60 05/26/17 11:15 98.0 71 18 122/71 99 05/26/17 11:00 66 05/26/17 10:00 74 05/26/17 09:00 100 05/26/17 08:15 98.2 83 18 133/64 95 05/26/17 08:00 78 05/26/17 07:01 70 05/26/17 05:39 98.7 80 16 97 05/26/17 05:00 74 05/26/17 04:00 72 05/26/17 03:00 80 05/26/17 02:00 80 05/26/17 01:00 76 05/26/17 00:58 98.9 76 16 143/83 97 05/26/17 00:00 70 05/25/17 23:00 78 05/25/17 21:00 86 05/25/17 20:15 98.9 92 16 128/60 98 05/25/17 20:00 92 05/25/17 19:00 86 05/25/17 18:44 79 05/25/17 17:00 80 05/25/17 16:00 86 05/25/17 15:20 98.5 84 18 131/51 96 05/25/17 15:00 85 I/O 05/25/17 05/25/17 05/25/17 05/26/17 05/26/17 05/26/17 07:00 15:00 23:00 07:00 15:00 23:00 Intake Total 300 ml 740 ml 240 ml Output Total 400 ml 450 ml 400 ml Balance -100 ml 290 ml -160 ml Intake Oral 300 ml 740 ml 240 ml IV Total 0 ml Output Urine Total 400 ml 450 ml 400 ml # Voids 2 # Bowel Movements 2 1 Result Diagram: 05/25/17 0512 05/24/17 0451 Imaging Last Impressions Aorta w/Runoff CTA 05/19/17 0000 Signed Impressions: Service Date/Time: Friday, May 19, 2017 04:55 - CONCLUSION: 1. 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 2. Multiple bilateral renal cysts and hepatic cysts. 3. 2.7 cm right adnexal cyst. Mike Fonseca MD Objective Remarks GENERAL: awake and alert, oriented x 3 SKIN: Warm and dry. HEAD: Normocephalic.anicteric EYES: No scleral icterus. No injection or drainage. NECK: Supple, trachea midline. No JVD or lymphadenopathy. CARDIOVASCULAR:irregularly irregular rhythm RESPIRATORY: Breath sounds equal bilaterally. No accessory muscle use. GASTROINTESTINAL: Abdomen soft, non-tender, nondistended. MUSCULOSKELETAL: No cyanosis, or edema. , right groin with mild swelling, stitches in place, no cyanosis ++ femoral and popliteal pulses. bilateral Procedures 05/23- embolectomy right popliteal artery A/P Problem List: (1) Arterial occlusion ICD Code: I74.9 Status: Acute (2) A-fib ICD Code: I48.91 Status: Chronic (3) Hypertension ICD Code: I10 Status: Acute Assessment and Plan 87-year-old female admitted secondary to right lower extremity arterial occlusion. INR is 1.6 on 05/23/17. Coumadin dosing increased to 7.5 mg daily. Follow INR. Continue heparin drip. Monitor PTT. Diuresis has been discontinued and renal function will be monitored. BMP and CBC ordered. Acute arterial occlusion right popliteal artery S/P embolectomy 05/23 Postop pain Vascular surgery following- on coumadin. - on 7.5 mg- held restart coumadin if INR less than 3- at 5 mg daily As needed pain treatments Acute anemia post procedure- resolved Atrial fibrillation-chronic rate controlled Continue Coumadin Follow INR Follow on telemetry Continue Lopressor 25 mg by mouth twice a day Hypertension Continue Lopressor Add back amlodipine and hydrochlorothiazide if needed (not needed currently) Hypothyroidism Continue Synthroid Follow as an outpatient Acute Kidney Insufficiency -ff BMP- encourage po fluids. creatinine stabilizing DVT prophylaxis Patient is presently on Coumadin PT daily SNF- patient and daughter looking at list and daugher checking on places hopefully tomorrow Yanni Alonso MD May 26, 2017 14:08
[2017-05-26] MEDS ORDERED: WARFARIN SOD 5 MG TAB PO SCH (16:00)
[2017-05-26 16:53] LABS: INTERNATIONAL NORMALIZED RATIO 4.4 RATIO
[2017-05-26 16:55] LABS: PROTHROMBIN TIME - PATIENT 52.3 SEC (9.8-11.6)
[2017-05-26] MEDS: PANTOPRAZOLE SOD 40 MG DELAYED RELEASE TAB PO SCH (20:32)
[2017-05-26] MEDS: DOCUSATE CALCIUM 240 MG CAP PO SCH (20:32)
[2017-05-27] VITALS (25 sets, daily range): BP systolic 124–154; BP diastolic 53–76; PULSE 65–97; RESP 16–20; TEMP 98–99; O2SAT 93–99
[2017-05-27] MEDS: oxyCODONE/ACETAMINOPHEN 10 MG/325 MG TAB PO PRN ×4 (00:16→21:46)
[2017-05-27 04:40] LABS: INTERNATIONAL NORMALIZED RATIO 2.8 RATIO; PROTHROMBIN TIME - PATIENT 31.8 SEC (9.8-11.6)
[2017-05-27] MEDS: INSULIN NovoLIN REGULAR SUPPLEMENTAL SCALE SQ SCH ×4 (05:43→21:00)
[2017-05-27] MEDS: LEVOTHYROXINE SODIUM 100 MCG TAB PO SCH (05:43)
--- NOTE | 2017-05-27 08:43 | PD.VS.PN ---
Subjective Procedure(s): embolectomy right popliteal artery Subjective/Hospital Course Stable swelling R groin - feels like hematoma and edema but no skin compromise and overall very stable R leg ok Objective Vitals/I&O Date Time Temp Pulse Resp B/P Pulse Ox O2 Delivery O2 Flow Rate FiO2 05/27/17 08:00 80 05/27/17 07:00 81 05/27/17 07:00 99 Room Air 05/27/17 07:00 98.2 87 18 146/53 99 05/27/17 06:43 20 05/27/17 06:00 76 05/27/17 05:00 74 05/27/17 04:00 76 05/27/17 04:00 Room Air 05/27/17 04:00 98.1 90 20 143/71 98 05/27/17 03:00 74 05/27/17 02:00 76 05/27/17 01:00 78 05/27/17 00:00 69 05/27/17 00:00 Room Air 05/27/17 00:00 98.4 68 20 132/73 97 05/26/17 23:00 70 05/26/17 22:00 74 05/26/17 21:00 82 05/26/17 20:20 98.9 96 20 148/78 96 05/26/17 20:20 Room Air 05/26/17 20:00 62 05/26/17 19:00 92 05/26/17 18:01 62 05/26/17 17:01 64 05/26/17 16:00 72 05/26/17 15:15 98.0 85 18 142/63 97 05/26/17 15:00 79 05/26/17 14:00 92 05/26/17 13:00 72 05/26/17 12:01 60 05/26/17 11:15 98.0 71 18 122/71 99 05/26/17 11:00 66 05/26/17 10:00 74 05/26/17 09:00 100 05/27/17 05/27/17 05/27/17 07:00 15:00 23:00 Intake Total 240 ml Output Total 600 ml Balance -360 ml Exam: R groin incision with minimal drainage Edema R groin palpable PT Laboratory Laboratory Tests Test 05/26/17 05/27/17 16:21 03:58 Prothrombin Time 52.3 31.8 Prothromb Time International 4.4 2.8 Ratio Assessment and Plan Assessment: (1) Arterial occlusion Status: Acute Plan ok to d/c when clear from medical standpoint have arranged f/u with vascular clinic in 1 week Suman Osei MD May 27, 2017 08:43
--- NOTE | 2017-05-27 08:43 | HHI.PR ---
Subjective Remarks minimal pain right groin no chest pain or shortness of breath or leg pain up and ambulating slowly with a walker Objective Vitals Vital Signs Date Time Temp Pulse Resp B/P Pulse Ox O2 Delivery O2 Flow Rate FiO2 05/27/17 07:00 81 05/27/17 07:00 99 Room Air 05/27/17 07:00 98.2 87 18 146/53 99 05/27/17 06:43 20 05/27/17 06:00 76 05/27/17 05:00 74 05/27/17 04:00 76 05/27/17 04:00 Room Air 05/27/17 04:00 98.1 90 20 143/71 98 05/27/17 03:00 74 05/27/17 02:00 76 05/27/17 01:00 78 05/27/17 00:00 69 05/27/17 00:00 Room Air 05/27/17 00:00 98.4 68 20 132/73 97 05/26/17 23:00 70 05/26/17 22:00 74 05/26/17 21:00 82 05/26/17 20:20 98.9 96 20 148/78 96 05/26/17 20:20 Room Air 05/26/17 20:00 62 05/26/17 19:00 92 05/26/17 18:01 62 05/26/17 17:01 64 05/26/17 16:00 72 05/26/17 15:15 98.0 85 18 142/63 97 05/26/17 15:00 79 05/26/17 14:00 92 05/26/17 13:00 72 05/26/17 12:01 60 05/26/17 11:15 98.0 71 18 122/71 99 05/26/17 11:00 66 05/26/17 10:00 74 05/26/17 09:00 100 I/O 05/26/17 05/26/17 05/26/17 05/27/17 05/27/17 05/27/17 07:00 15:00 23:00 07:00 15:00 23:00 Intake Total 240 ml 600 ml 240 ml Output Total 400 ml 900 ml 600 ml Balance -160 ml -300 ml -360 ml Intake Oral 240 ml 600 ml 240 ml Output Urine Total 400 ml 900 ml 600 ml # Voids 5 # Bowel Movements 1 1 Result Diagram: 05/25/17 0512 05/24/17 0451 Imaging Last Impressions Aorta w/Runoff CTA 05/19/17 0000 Signed Impressions: Service Date/Time: Friday, May 19, 2017 04:55 - CONCLUSION: 1. 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 2. Multiple bilateral renal cysts and hepatic cysts. 3. 2.7 cm right adnexal cyst. Mike Fonseca MD Objective Remarks GENERAL: awake and alert, oriented x 3 SKIN: Warm and dry. HEAD: Normocephalic.anicteric EYES: No scleral icterus. No injection or drainage. NECK: Supple, trachea midline. No JVD or lymphadenopathy. CARDIOVASCULAR:irregularly irregular rhythm RESPIRATORY: Breath sounds equal bilaterally. No accessory muscle use. GASTROINTESTINAL: Abdomen soft, non-tender, nondistended. MUSCULOSKELETAL: No cyanosis right groin with mild swelling, no cyanosis ++ femoral and popliteal pulses. bilateral Procedures 05/23- embolectomy right popliteal artery A/P Problem List: (1) Arterial occlusion ICD Code: I74.9 Status: Acute (2) A-fib ICD Code: I48.91 Status: Chronic (3) Hypertension ICD Code: I10 Status: Acute Assessment and Plan 87-year-old female admitted secondary to right lower extremity arterial occlusion. INR is 1.6 on 05/23/17. Coumadin dosing increased to 7.5 mg daily. Follow INR. Continue heparin drip. Monitor PTT. Diuresis has been discontinued and renal function will be monitored. BMP and CBC ordered. Acute arterial occlusion right popliteal artery S/P embolectomy 05/23 Postop pain Vascular surgery following- INR 2.8 INR down- 2.8 - restart coumadin - 4 mg daily As needed pain treatments Acute anemia post procedure- resolved H and H in am Atrial fibrillation-chronic rate controlled Continue Coumadin Follow INR Follow on telemetry Continue Lopressor 25 mg by mouth twice a day Hypertension Continue Lopressor Add back amlodipine and hydrochlorothiazide if needed (not needed currently) Hypothyroidism Continue Synthroid Follow as an outpatient Acute Kidney Insufficiency -ff BMP- encourage po fluids. creatinine stabilizing DVT prophylaxis Patient is presently on Coumadin PT daily SNF- patient and daughter looking at list and daugher checking on places today- will ask CM to ff up and touch base with daughter discuss with patient- agreeable to plan- SNF for more PT Yanni Alonso MD May 27, 2017 08:43
[2017-05-27] MEDS: SODIUM CHLORIDE 0.9% FLUSH 10 ML FLUSH IV FLUSH SCH ×2 (09:33→21:47)
[2017-05-27] MEDS: PRAVASTATIN SOD 20 MG TAB PO SCH (09:33)
[2017-05-27] MEDS: METOPROLOL TARTRATE 25 MG TAB PO SCH ×2 (09:33→21:45)
[2017-05-27] MEDS: ASPIRIN EC 325 MG TABEC PO SCH (09:33)
[2017-05-27] MEDS: WARFARIN SOD 4 MG TAB PO SCH (15:56)
[2017-05-27] MEDS: DOCUSATE CALCIUM 240 MG CAP PO SCH (21:45)
[2017-05-27] MEDS: PANTOPRAZOLE SOD 40 MG DELAYED RELEASE TAB PO SCH (21:46)
[2017-05-28] VITALS (17 sets, daily range): BP systolic 119–151; BP diastolic 60–70; PULSE 57–105; RESP 18–20; TEMP 97.7–98.2; O2SAT 96–98
[2017-05-28] MEDS: oxyCODONE/ACETAMINOPHEN 10 MG/325 MG TAB PO PRN ×2 (03:36→14:44)
[2017-05-28] MEDS: LEVOTHYROXINE SODIUM 100 MCG TAB PO SCH (06:23)
[2017-05-28] MEDS: INSULIN NovoLIN REGULAR SUPPLEMENTAL SCALE SQ SCH ×2 (06:24→10:54)
[2017-05-28 07:24] LABS: MEAN CELL VOLUME 92.5 FL (80.0-100.0); MEAN CORPUSCULAR HEMOGLOBIN 31.1 PG (27.0-34.0); MEAN CORPUSCULAR HGB CONC 33.6 % (32.0-36.0); PLATELET COUNT 305 TH/MM3 (150-450); RED BLOOD COUNT 2.92 MIL/MM3 (4.00-5.30); RED CELL DISTRIBUTION WIDTH 14.5 % (11.6-17.2); REVIEW FLAG FINAL
[2017-05-28] MEDS: PRAVASTATIN SOD 20 MG TAB PO SCH (07:58)
[2017-05-28] MEDS: ASPIRIN EC 325 MG TABEC PO SCH (07:58)
[2017-05-28] MEDS: METOPROLOL TARTRATE 25 MG TAB PO SCH (07:59)
[2017-05-28] MEDS: SODIUM CHLORIDE 0.9% FLUSH 10 ML FLUSH IV FLUSH SCH (07:59)
[2017-05-28 08:02] LABS: BICARBONATE 28.4 MEQ/L (21.0-32.0); POTASSIUM 4.9 MEQ/L (3.5-5.1)
[2017-05-28] MEDS ORDERED: PANT40TA3 PO (13:20)
[2017-05-28] MEDS ORDERED: METO25TA3 PO (13:20)
[2017-05-28] MEDS ORDERED: DOCU2.5C PO (13:20)
[2017-05-28] MEDS ORDERED: OXYC1TAB36 PO (13:20)
[2017-05-28] MEDS ORDERED: ASPI325T33 PO (13:20)
--- NOTE | 2017-05-28 13:23 | HHI.DS ---
Discharge Summary Admission Date May 19, 2017 at 05:26 Discharge Date: May 28, 2017 Admitting Diagnosis RLE Arterial Occlusion (1) Arterial occlusion ICD Code: I74.9 Diagnosis: Principal (2) A-fib ICD Code: I48.91 Diagnosis: Principal (3) Hypertension ICD Code: I10 Diagnosis: Secondary Procedures 05/23- embolectomy right popliteal artery Brief History - From Admission Mrs. Love is an 87-year-old female. Recently she had a kyphoplasty. For kyphoplasty she had to come off her Coumadin. She has resumed this but is not yet therapeutic. Last night she had an onset of a cold right lower extremity which progressed into a painful cold right foot. She came into the emergency room and was diagnosed with an arterial obstruction. She was rushed to have an emergent vascular procedure which was beneficial. Embolectomy was successful. I am seeing her after this procedure. She has no further complaints of right lower extremity pain. The limb is now warm. Her baseline medical conditions are atrial fibrillation and hypertension. No chest pain. No headaches. CBC/BMP: 05/28/17 0651 05/28/17 0651 Significant Findings Laboratory Tests Test 05/25/17 05/26/17 05/27/17 05/28/17 17:13 16:21 03:58 06:51 Prothrombin Time 46.2 SEC 52.3 SEC 31.8 SEC (9.8-11.6) (9.8-11.6) (9.8-11.6) Red Blood Count 2.92 MIL/MM3 (4.00-5.30) Hemoglobin 9.1 GM/DL (11.6-15.3) Hematocrit 27.0 % (35.0-46.0) Blood Urea Nitrogen 23 MG/DL (7-18) Estimat Glomerular Filtration 66 ML/MIN (>89) Rate Calcium Level 8.3 MG/DL (8.5-10.1) Imaging Last Impressions Aorta w/Runoff CTA 05/19/17 0000 Signed Impressions: Service Date/Time: Friday, May 19, 2017 04:55 - CONCLUSION: 1. 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 2. Multiple bilateral renal cysts and hepatic cysts. 3. 2.7 cm right adnexal cyst. Mike Fonseca MD PE at Discharge GENERAL: awake and alert, oriented x 3 SKIN: Warm and dry. HEAD: Normocephalic.anicteric EYES: No scleral icterus. No injection or drainage. NECK: Supple, trachea midline. No JVD or lymphadenopathy. CARDIOVASCULAR:irregularly irregular rhythm RESPIRATORY: Breath sounds equal bilaterally. No accessory muscle use. GASTROINTESTINAL: Abdomen soft, non-tender, nondistended. MUSCULOSKELETAL: No cyanosis right groin with mild swelling, no cyanosis ++ femoral and popliteal pulses. bilateral Pt update on day of discharge very motivated with PT pain controlled with po Percocet a fib- kyara controlled Hospital Course 87-year-old female admitted secondary to right lower extremity arterial occlusion. INR is 1.6 on 05/23/17. Coumadin dosing increased to 7.5 mg daily. Follow INR. Continue heparin drip. Monitor PTT. Diuresis has been discontinued and renal function will be monitored. BMP and CBC ordered. Acute arterial occlusion right popliteal artery S/P embolectomy 05/23 Postop pain Vascular surgery following- INR 2.8 INR down- 2.8 - restart coumadin - 4 mg daily As needed pain treatments- percocet prn Acute anemia post procedure- resolved H and H stable Atrial fibrillation-chronic rate controlled Continue Coumadin Follow INR i SNF-goal 2-3 Continue Lopressor 25 mg by mouth twice a day Hypertension Continue Lopressor Hypothyroidism Continue Synthroid Follow as an outpatient Acute Kidney Insufficiency- improved creatinine stabilizing DVT prophylaxis Patient is presently on Coumadin- ff INR PT daily SNF- today PORH ff up with Cardiology, Vascular as OP Pt Condition on Discharge: Stable Discharge Disposition: Discharge to SNF Discharge Time: <= 30 minutes Discharge Instructions DIET: Follow Instructions for: Heart Healthy Diet, Coumadin (Warfarin) Diet Speech Therapy-Diet Recommends: Regular Activities you can perform: Weight Bearing as [place] Activities to Avoid: Prolonged Standing, Strenuous Activity Follow up Referrals: Cardiology - 1 Week with Jan Gauthier MD PCP Follow-up - 2-3 Days Vascular Surgery @ Vascular Surgery New Orders: PT/INR - 05/29/17 New Medications: Aspirin DR (Aspirin EC) 325 Mg Tabdr 325 MG PO DAILY PAD Days 30 TAB Docusate Calcium (Sm Stool Softener) 240 Mg Cap 240 MG PO HS BM Days 30 CAP Metoprolol Tartrate (Metoprolol Tartrate) 25 Mg Tab 25 MG PO Q12HR afib Days 30 TAB Oxycodone-Acetaminophen (Oxycodone-Acetaminophen) 10-325 mg Tab 1 TAB PO Q6HR PRN PAIN SCALE 6 TO 10 #25 Ref 0 TAB Pantoprazole (Pantoprazole) 40 Mg Tab 40 MG PO HS GIpro Days 30 TAB Continued Medications: Alendronate (Fosamax) 70 Mg Tab 70 MG PO Q7D Osteoporosis Treatment #4 Ref 0 TAB Levothyroxine (Levoxyl) 100 Mcg Tab 100 MCG PO DAILY Thyroid #30 Ref 0 TAB Lovastatin (Lovastatin) 20 Mg Tab 20 MG PO DAILY Cholesterol Management #30 Ref 0 TAB Warfarin (Coumadin) 4 Mg Tab 4 MG PO DAILY Prevent Blood Clot #30 Ref 0 TAB Discontinued Medications: Amlodipine (Norvasc) 10 Mg Tab 10 MG PO BID Blood Pressure Management #30 Ref 0 TAB Hydrochlorothiazide (Hydrochlorothiazide) 12.5 Mg Cap 12.5 MG PO DAILY #30 Ref 0 CAP Hydrocodone-Acetaminophen (Lortab) 5-325 Mg Tab 1 TAB PO Q6H PRN PAIN #14 Ref 0 TAB Metoprolol Tartrate (Metoprolol Tartrate) 50 Mg Tab 50 MG PO DAILY #30 Ref 0 TAB Tramadol (Tramadol) 50 Mg Tab 50 MG PO Q8H PRN PAIN Ref 0 TAB Yanni Alonso MD May 28, 2017 13:23
--- NOTE | 2017-05-28 13:27 | HHI.PR ---
Subjective Remarks doing great pain contolled on po pain meds telemetry- a fib- rate controlled Objective Vitals Vital Signs Date Time Temp Pulse Resp B/P Pulse Ox O2 Delivery O2 Flow Rate FiO2 05/28/17 13:00 57 05/28/17 12:00 80 05/28/17 11:00 91 05/28/17 11:00 98.2 71 20 119/60 97 05/28/17 10:00 83 05/28/17 09:00 82 05/28/17 08:00 88 05/28/17 07:00 105 05/28/17 07:00 97.9 75 20 151/66 96 05/28/17 06:29 75 05/28/17 05:11 74 05/28/17 04:01 75 05/28/17 03:30 97.7 74 18 151/70 98 05/28/17 03:00 82 05/28/17 02:00 64 05/28/17 01:00 68 05/28/17 00:00 64 05/27/17 23:00 98.0 71 16 154/76 99 05/27/17 23:00 79 05/27/17 22:00 80 05/27/17 21:00 92 05/27/17 20:00 84 05/27/17 19:34 98 Room Air 05/27/17 19:30 98.7 97 17 149/59 98 05/27/17 19:00 86 05/27/17 18:00 79 05/27/17 17:00 65 05/27/17 16:00 82 05/27/17 15:00 83 05/27/17 15:00 99.0 85 18 135/69 97 05/27/17 14:00 95 I/O 05/27/17 05/27/17 05/27/17 05/28/17 05/28/17 05/28/17 07:00 15:00 23:00 07:00 15:00 23:00 Intake Total 240 ml 720 ml 240 ml Output Total 600 ml 300 ml Balance -360 ml 720 ml -60 ml Intake Oral 240 ml 720 ml 240 ml Output Urine Total 600 ml 300 ml # Voids 5 Result Diagram: 05/28/17 0651 05/28/17 0651 Imaging Last Impressions Aorta w/Runoff CTA 05/19/17 0000 Signed Impressions: Service Date/Time: Friday, May 19, 2017 04:55 - CONCLUSION: 1. 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 2. Multiple bilateral renal cysts and hepatic cysts. 3. 2.7 cm right adnexal cyst. Mike Fonseca MD Objective Remarks GENERAL: awake and alert, oriented x 3 SKIN: Warm and dry. HEAD: Normocephalic.anicteric EYES: No scleral icterus. No injection or drainage. NECK: Supple, trachea midline. No JVD or lymphadenopathy. CARDIOVASCULAR:irregularly irregular rhythm RESPIRATORY: Breath sounds equal bilaterally. No accessory muscle use. GASTROINTESTINAL: Abdomen soft, non-tender, nondistended. MUSCULOSKELETAL: No cyanosis right groin with mild swelling, no cyanosis ++ femoral and popliteal pulses. bilateral Procedures 05/23- embolectomy right popliteal artery A/P Problem List: (1) Arterial occlusion ICD Code: I74.9 Status: Acute (2) A-fib ICD Code: I48.91 Status: Chronic (3) Hypertension ICD Code: I10 Status: Acute Assessment and Plan 87-year-old female admitted secondary to right lower extremity arterial occlusion. INR is 1.6 on 05/23/17. Coumadin dosing increased to 7.5 mg daily. Follow INR. Continue heparin drip. Monitor PTT. Diuresis has been discontinued and renal function will be monitored. BMP and CBC ordered. Acute arterial occlusion right popliteal artery S/P embolectomy 05/23 Postop pain Vascular surgery following- INR 2.8 INR down- 2.8 - restart coumadin - 4 mg daily As needed pain treatments- percocet prn Acute anemia post procedure- resolved H and H stable Atrial fibrillation-chronic rate controlled Continue Coumadin Follow INR i SNF-goal 2-3 Continue Lopressor 25 mg by mouth twice a day Hypertension Continue Lopressor Hypothyroidism Continue Synthroid Follow as an outpatient Acute Kidney Insufficiency- improved creatinine stabilizing DVT prophylaxis Patient is presently on Coumadin- ff INR PT daily SNF- today PORH ff up with Cardiology, Vascular as OP Yanni Alonso MD May 28, 2017 13:27
[2017-05-28] MEDS: WARFARIN SOD 4 MG TAB PO SCH (14:45)
[2017-05-28 15:08] LABS: INTERNATIONAL NORMALIZED RATIO 2.5 RATIO; PROTHROMBIN TIME - PATIENT 28.9 SEC (9.8-11.6)
== END 2017-05-28 16:08 | DRG 253 ==
LOC: NEPC 02:17 → NEDA 05:26 → HCVR 11:20 → HCIN 05-22 16:11 → HCIS 05-23 16:10
PROVIDERS: ADMIT Internal Medicine; ATTEND Internal Medicine
PROC: 04CM0ZZ Extirpation of Matter from Right Popliteal Artery, Open Approach (ICD-10-PCS; principal; 2017-05-19 08:00)
DX: I74.3 Embolism and thrombosis of arteries of the lower extremities (principal); I42.9 Cardiomyopathy, unspecified; I50.9 Heart failure, unspecified; I11.0 Hypertensive heart disease with heart failure; I48.2 Chronic atrial fibrillation; E03.9 Hypothyroidism, unspecified; T45.516A Underdosing of anticoagulants, initial encounter; M19.90 Unspecified osteoarthritis, unspecified site; I08.1 Rheumatic disorders of both mitral and tricuspid valves; D64.9 Anemia, unspecified; N28.9 Disorder of kidney and ureter, unspecified; G47.00 Insomnia, unspecified; Z79.01 Long term (current) use of anticoagulants; Z91.128 Patient's intentional underdosing of medication regimen for other reason; Z96.641 Presence of right artificial hip joint
CPT/HCPCS: 36430; 75635; 76937; 80048; 80053; 82948; 85025; 85027; 85610; 85730; 86850; 86900; 86901; 86920; 93306; 94150; 99291; C1757; J0131; J0690; J1644; J1940; J2270; J2370; J2405; J3010; J7030; J7120; P9016; Q9967

== ENCOUNTER 2017-06-08 17:10 | Emergency (ER) | payer MEDICARE, OTHER ==
[~2017-06-08] VITALS: Ht 170.2 cm; Wt 71.0 kg
[~2017-06-08 17:10] MED LIST changes: -AMLO10 PO; +ASPI325T33 PO; +DOCU2.5C PO; -HYDR-3533 PO; -HYDR12.57 PO; +METO25TA3 PO; -METO50TA PO; +OXYC1TAB36 PO; +PANT40TA3 PO; -TRAM50TA PO
--- NOTE | 2017-06-08 17:19 | PD ---
Physical Exam Time Seen by Provider: 17:17 Narrative 87yo F c/o SOB for the last couple days. Had back Surgery May 12, then Had surgery 3 weeks ago for removal of blood clot behind her R knee. Denies hemoptysis. Fever Monday 100.6. Denies vomiting. Patient seen in triage. VS reviewed. Awaiting bed placement. MDM Supervised Visit with JON: Reshma Canales Jun 08, 2017 17:19
[2017-06-08] MEDS ORDERED: DIFFCHW PO (18:20)
[2017-06-08] MEDS ORDERED: ZOFR4TAB PO (18:20)
[2017-06-08] MEDS ORDERED: FERR325T8 PO (18:20)
[2017-06-08] MEDS ORDERED: COLA100C PO (18:20)
[2017-06-08] MEDS ORDERED: CEPH-460 PO (18:20)
[2017-06-08 18:26] VITALS: BP 166/79; PULSE 86; RESP 19; TEMP 98; O2SAT 97
[2017-06-08 18:28] LABS: AUTOMATED NEUTROPHIL # 6.1 TH/MM3 (1.8-7.7); BASOPHIL # 0.1 TH/MM3 (0-0.2); BASOPHIL % 1.2 % (0.0-2.0); EOSINOPHIL # 0.3 TH/MM3 (0-0.4); EOSINOPHIL % 3.2 % (0.0-4.0); HEMATOCRIT 29.9 % (35.0-46.0); HEMO FLAGS DIFF FINAL; LYMPH % 14.3 % (9.0-44.0); LYMPHOCYTE # 1.2 TH/MM3 (1.0-4.8); MEAN CELL VOLUME 93.8 FL (80.0-100.0); MEAN CORPUSCULAR HEMOGLOBIN 31.1 PG (27.0-34.0); MEAN CORPUSCULAR HGB CONC 33.2 % (32.0-36.0); MONO % 10.3 % (0.0-8.0); PLATELET COUNT 309 TH/MM3 (150-450); RED BLOOD COUNT 3.19 MIL/MM3 (4.00-5.30); RED CELL DISTRIBUTION WIDTH 15.1 % (11.6-17.2); WHITE BLOOD COUNT 8.6 TH/MM3 (4.0-11.0)
--- NOTE | 2017-06-08 18:28 | PD ---
HPI Chief Complaint: Respiratory Symptoms Time Seen by Provider: 17:35 Travel History International Travel<30 days: No Contact w/Intl Traveler<30days: No Traveled to known affect area: No History of Present Illness HPI This is a 87-year-old female who presents to the emergency department having had an embolectomy for an acute arterial occlusion 3 weeks ago coming in with shortness of breath. She reports that for the past week she's had increasing trouble breathing, constant, moderate severity, worse with exertion and improved with rest. She has trouble taking a deep breath. She denies any orthopnea. She has noticed that her legs are more swollen than normal. She does have a history congestive heart failure. She had a fever earlier this week of 100.6 but denies any current productive cough or fevers or chills. PFSH Past Medical History Hx Anticoagulant Therapy: Yes (Warfarin) Arthritis: Yes Blood Disorders: No Anxiety: No Depression: No Heart Rhythm Problems: Yes (ATRIAL FIBRILLATION) Cancer: No Cardiac Catheterization: No Cardiovascular Problems: Yes (CHF, Cardiomyopathy, HTN, A-fib) High Cholesterol: Yes Chest Pain: No Congestive Heart Failure: No Cerebrovascular Accident: No Diabetes: No Diminished Hearing: No Endocrine: Yes Gastrointestinal Disorders: Yes GERD: No Genitourinary: No Headaches: No Hiatal Hernia: No Heparin Induced Thrombocytopen: No Hypertension: Yes Immune Disorder: No Implanted Vascular Access Dvce: Yes Musculoskeletal: Yes Neurologic: Yes Psychiatric: No Reproductive: Yes Respiratory: No Immunizations Current: Yes Migraines: No Seizures: No Sleep Apnea: No Thyroid Disease: Yes (Hypothyroidism ) ?: Not Past Surgical History Body Medical Devices: MCKAYLA EYE LENS; SCREWS RIGHT HIP, RIGHT HIP REPLACEMENT Cardiac Surgery: Yes (right leg arterial clot removal) Coronary Artery Bypass Graft: No Eye Surgery: Yes (BILATERAL CATARACT SX) Hysterectomy: Yes Other Surgery: Yes (DETACHED RETINA RIGHT EYE 1992) Social History Alcohol Use: Yes (rare) Tobacco Use: No Substance Use: No Allergies-Medications (Allergen,Severity, Reaction): Coded Allergies: No Known Allergies (Verified , 06/08/17) Reported Meds & Prescriptions Reported Meds & Active Scripts Active Pantoprazole (Pantoprazole Sodium) 40 Mg Tab 40 Mg PO HS 30 Days Oxycodone-Acetaminophen 10-325 mg Tab 1 Tab PO Q6HR PRN Metoprolol Tartrate 25 Mg Tab 25 Mg PO Q12HR 30 Days Aspirin EC (Aspirin) 325 Mg Tabdr 325 Mg PO DAILY 30 Days Reported Zofran (Ondansetron HCl) 4 Mg Tab 4 Mg PO Q6HR PRN Diff-Stat (Probiotic Product) 1 Cap Cap 1 Cap PO QID 10 Days Keflex (Cephalexin) 500 Mg Cap 500 Mg PO Q8H 7 Days Ferrous Sulfate 325 Mg (65 Mg Iron) Tablet 325 Mg PO TID Colace (Docusate Sodium) 100 Mg Capsule 100 Mg PO HS Coumadin (Warfarin) 4 Mg Tab 4 Mg PO DAILY Lovastatin 20 Mg Tab 20 Mg PO HS Levoxyl (Levothyroxine Sodium) 100 Mcg Tab 100 Mcg PO DAILY Fosamax (Alendronate Sodium) 70 Mg Tab 70 Mg PO Q7D Review of Systems Except as stated in HPI: all other systems reviewed are Neg Physical Exam Narrative GENERAL:Well appearing, no acute distress SKIN: Focused skin assessment warm and dry. HEAD: Atraumatic. Normocephalic. EYES: Pupils equal and round. No injection or drainage. ENT: Moist mucous membranes NECK: Trachea midline. CARDIOVASCULAR: Regular rate and rhythm. No murmur appreciated. RESPIRATORY: Rales in the bilateral lung bases. Tachypnea. Speaking full sentences.. GASTROINTESTINAL: Abdomen soft, non-tender, nondistended. MUSCULOSKELETAL: No obvious deformities. NEUROLOGICAL: Awake and alert. No obvious cranial nerve deficits. Moving all extremities. PSYCHIATRIC: Appropriate mood and affect; insight and judgment normal. Data Data Last Documented VS Vital Signs Date Time Temp Pulse Resp B/P (MAP) Pulse Ox O2 Delivery O2 Flow Rate FiO2 06/08/17 18:26 98.0 86 19 166/79 (108) 97 Nasal Cannula 2.00 Orders Orders Complete Blood Count With Diff (06/08/17 17:52) Comprehensive Metabolic Panel (06/08/17 17:52) B-Type Natriuretic Peptide (06/08/17 17:52) Troponin I (06/08/17 17:52) ^ Insert Iv (06/08/17 17:52) Electrocardiogram (06/08/17 ) Chest, Pa & Lat (06/08/17 ) Labs Laboratory Tests Test 06/08/17 17:55 White Blood Count 8.6 TH/MM3 Red Blood Count 3.19 MIL/MM3 Hemoglobin 9.9 GM/DL Hematocrit 29.9 % Mean Corpuscular Volume 93.8 FL Mean Corpuscular Hemoglobin 31.1 PG Mean Corpuscular Hemoglobin Concent 33.2 % Red Cell Distribution Width 15.1 % Platelet Count 309 TH/MM3 Mean Platelet Volume 8.1 FL Neutrophils (%) (Auto) 71.0 % Lymphocytes (%) (Auto) 14.3 % Monocytes (%) (Auto) 10.3 % Eosinophils (%) (Auto) 3.2 % Basophils (%) (Auto) 1.2 % Neutrophils # (Auto) 6.1 TH/MM3 Lymphocytes # (Auto) 1.2 TH/MM3 Monocytes # (Auto) 0.9 TH/MM3 Eosinophils # (Auto) 0.3 TH/MM3 Basophils # (Auto) 0.1 TH/MM3 CBC Comment DIFF FINAL Differential Comment Blood Urea Nitrogen 12 MG/DL Creatinine 0.74 MG/DL Random Glucose 114 MG/DL Total Protein 6.1 GM/DL Albumin 2.7 GM/DL Calcium Level 8.2 MG/DL Alkaline Phosphatase 76 U/L Aspartate Amino Transf (AST/SGOT) 20 U/L Alanine Aminotransferase (ALT/SGPT) 14 U/L Total Bilirubin 0.3 MG/DL Sodium Level 138 MEQ/L Potassium Level 3.8 MEQ/L Chloride Level 103 MEQ/L Carbon Dioxide Level 28.2 MEQ/L Anion Gap 7 MEQ/L Estimat Glomerular Filtration Rate 75 ML/MIN Troponin I 0.02 NG/ML B-Type Natriuretic Peptide 495 PG/ML MDM Medical Decision Making Medical Screen Exam Complete: Yes Emergency Medical Condition: Yes Interpretation(s) Afebrile, no tachycardia, hypertensive Anemia similar to prior Electrolytes are reassuring BNP is 495 Last 24 hours Impressions Chest X-Ray 06/08/17 0000 Signed Impressions: Service Date/Time: May 18:11 - CONCLUSION: 1. Small bilateral pleural effusions, left larger than right. 2. Interstitial changes bilaterally. These findings could represent interstitial pulmonary edema in the appropriate clinical setting. 3. Stable enlargement of the cardiac silhouette. Pramod Ferrer MD Differential Diagnosis Congestive heart failure, pulmonary embolism, pneumonia, pleural effusion Narrative Course This is an 87-year-old female who presents the emergency department with increasing shortness of breath and dyspnea on exertion. She has a history congestive heart failure. She does have some edema on exam. Labs were obtained which were notable for a BNP of 495 and chest x-ray demonstrates bilateral pleural effusions and pulmonary edema. Patient will be given a dose of IV diuresis. She like to go home and she's not hypoxic on room air side think it's reasonable. She'll be started on 5 days Lasix and I asked her to follow up with her primary care physician early next week to be reevaluated. Diagnosis Primary Impression: Congestive heart failure Qualified Codes: I50.9 - Heart failure, unspecified Patient Instructions: General Instructions Additional Instructions: If you develop severe chest pain, shortness of breath, sweating, lightheadedness , dizziness or difficulty breathing return to the emergency department immediately. Follow-up with her primary care physician early next week for recheck. Med/Other Pt SpecificInfo: Prescription(s) given Scripts Potassium Chloride ER (Potassium Chloride ER) 20 Meq Tab 20 MEQ PO DAILY for Electrolyte Replacement, #5 TAB 0 Refills Prov: Barbie Mancini MD 06/08/17 Furosemide (Lasix) 20 Mg Tab 20 MG PO DAILY, #5 TAB 0 Refills Prov: aBrbie Mancini MD 06/08/17 Disposition: 01 DISCHARGE HOME Condition: Stable Barbie Mancini MD Jun 08, 2017 18:28
[2017-06-08 18:40] LABS: ANION GAP 7 MEQ/L (5-15); AST (GOT) 20 U/L (15-37); BICARBONATE 28.2 MEQ/L (21.0-32.0); BLOOD UREA NITROGEN 12 MG/DL (7-18); CHLORIDE 103 MEQ/L (98-107); GLOMERULAR FILTRATION RATE 75 ML/MIN (>89); POTASSIUM 3.8 MEQ/L (3.5-5.1); SODIUM (NA) 138 MEQ/L (136-145)
[2017-06-08 18:41] LABS: ALT (GPT) 14 U/L (10-53)
[2017-06-08 18:45] LABS: ALKALINE PHOSPHATASE 76 U/L (45-117); TOTAL BILIRUBIN ADULT 0.3 MG/DL (0.2-1.0)
--- NOTE | 2017-06-08 18:59 | RADRPT ---
EXAM DATE/TIME: 06/08/2017 18:11 [facility] COMPARISON: CHEST PA & LAT, March 06, 2015, 10:09. INDICATIONS : Short of breath MEDICAL HISTORY : Cardiovascular disease. Hypertension. Congestive heart failure. SURGICAL HISTORY : Hysterectomy. Right hip replacement. ENCOUNTER: Initial ACUITY: 1 day PAIN SCORE: 0/10 LOCATION: chest FINDINGS: Frontal and lateral views of the chest demonstrate stable mild enlargement of the cardiac silhouette with calcification of the aorta. There is blunting of the costophrenic sulci bilaterally, left greate r than right. There are mild interstitial opacities in lower lung zones bilaterally. No pneumothorax is identified. There is a stable compression deformity of one of the lower thoracic vertebral bodies and there has been interval vertebroplasty of one of the midthoracic vertebral bodies. CONCLUSION: 1. Small bilateral pleural effusions, left larger than right. 2. Interstitial changes bilaterally. These findings could represent interstitial pulmonary edema in t he appropriate clinical setting. 3. Stable enlargement of the cardiac silhouette. Pramod Ferrer MD on June 08, 2017 at 18:56 Board Certified Radiologist. This report was verified electronically.
[2017-06-08] MEDS ORDERED: FURO1TAB62 PO (19:16)
[2017-06-08] MEDS ORDERED: POTA-163 PO (19:16)
[2017-06-08] MEDS ORDERED: FUROSEMIDE 20 MG/2 ML VIAL IV PUSH ONE (19:30)
--- NOTE | 2017-06-09 11:18 | EKG ---
Date Performed: 06/08/2017 Time Performed: 18:19:32 PTAGE: 87 years EKG: ATRIAL FIBRILLATION BORDERLINE RIGHT AXIS DEVIATION Consider ANTEROSEPTAL MYOCARDIAL INFARC TION - age indeterminate ABNORMAL ECG PREVIOUS TRACING : 04/15/2017 13.49 DOCTOR: Florin Clements Interpretating Date/Time 06/09/2017 11:15:28
== END 2017-06-08 19:57 | disposition home or self-care (01) ==
LOC: NEPE 17:10
DX: I50.9 Heart failure, unspecified (principal); R06.02 Shortness of breath; R06.00 Dyspnea, unspecified; R60.9 Edema, unspecified; J90 Pleural effusion, not elsewhere classified; D64.9 Anemia, unspecified; I48.91 Unspecified atrial fibrillation; I42.9 Cardiomyopathy, unspecified; I10 Essential (primary) hypertension
CPT/HCPCS: 71020; 80053; 83880; 84484; 85025; 93005; 96374; 99285; J1940

== ENCOUNTER 2017-06-10 01:53 | Inpatient (IN) | payer OTHER, MEDICARE ==
[2017-06-10] VITALS (11 sets, daily range): BP systolic 124–191; BP diastolic 59–92; PULSE 62–86; RESP 16–20; TEMP 97.7–98.9; O2SAT 95–99
[~2017-06-10] VITALS: Ht 160 cm; Wt 69.4 kg
[~2017-06-10 01:53] MED LIST changes: +CEPH-460 PO; +COLA100C PO; +DIFFCHW PO; -DOCU2.5C PO; +FERR325T8 PO; +FURO1TAB62 PO; +POTA-163 PO; +ZOFR4TAB PO
--- NOTE | 2017-06-10 03:14 | PD ---
HPI Chief Complaint: Respiratory Distress Time Seen by Provider: 02:54 Travel History International Travel<30 days: No Contact w/Intl Traveler<30days: No Traveled to known affect area: No History of Present Illness HPI 87-year-old female complains of shortness of breath. Patient has history of cardiomyopathy and CHF. Patient was taking HCTZ and enalapril. Patient was admitted to rehabilitation recently and enalapril was stopped. Patient was seen in emergency room yesterday and was diagnosed with CHF. Patient was advised to take Lasix 20 mg daily. Patient states that the ankle swelling got better however patient has increasing shortness of breath especially when she lying down at night. Patient denies any headache. Patient denies any chest pain. Patient denies any coughing congestion fever chills. Patient denies abdominal pain. Patient denies any focal weakness or numbness of the extremity. Patient has history of hypertension and atrial fibrillation. Patient's on Coumadin. PFSH Past Medical History Hx Anticoagulant Therapy: Yes (Warfarin) Arthritis: Yes Blood Disorders: No Anxiety: No Depression: No Heart Rhythm Problems: Yes (ATRIAL FIBRILLATION) Cancer: No Cardiac Catheterization: No Cardiovascular Problems: Yes (CHF, Cardiomyopathy, HTN, A-fib) High Cholesterol: Yes Chest Pain: No Congestive Heart Failure: No Cerebrovascular Accident: No Diabetes: No Diminished Hearing: No Endocrine: Yes Gastrointestinal Disorders: Yes GERD: No Genitourinary: No Headaches: No Hiatal Hernia: No Heparin Induced Thrombocytopen: No Hypertension: Yes Immune Disorder: No Implanted Vascular Access Dvce: Yes Musculoskeletal: Yes Neurologic: Yes Psychiatric: No Reproductive: Yes Respiratory: No Immunizations Current: Yes Migraines: No Seizures: No Sleep Apnea: No Thyroid Disease: Yes (Hypothyroidism ) Tetanus Vaccination: Unknown Influenza Vaccination: Yes ?: Not Past Surgical History Body Medical Devices: MCKAYLA EYE LENS; SCREWS RIGHT HIP, RIGHT HIP REPLACEMENT Cardiac Surgery: Yes (right leg arterial clot removal) Coronary Artery Bypass Graft: No Eye Surgery: Yes (BILATERAL CATARACT SX) Hysterectomy: Yes Other Surgery: Yes (DETACHED RETINA RIGHT EYE 1992) Social History Alcohol Use: Yes (rare) Tobacco Use: No Substance Use: No Allergies-Medications (Allergen,Severity, Reaction): Coded Allergies: No Known Allergies (Verified , 06/08/17) Reported Meds & Prescriptions Reported Meds & Active Scripts Active Potassium Chloride ER (Potassium Chloride) 20 Meq Tab 20 Meq PO DAILY Lasix (Furosemide) 20 Mg Tab 20 Mg PO DAILY Pantoprazole (Pantoprazole Sodium) 40 Mg Tab 40 Mg PO HS 30 Days Oxycodone-Acetaminophen 10-325 mg Tab 1 Tab PO Q6HR PRN Metoprolol Tartrate 25 Mg Tab 25 Mg PO Q12HR 30 Days Aspirin EC (Aspirin) 325 Mg Tabdr 325 Mg PO DAILY 30 Days Reported Zofran (Ondansetron HCl) 4 Mg Tab 4 Mg PO Q6HR PRN Diff-Stat (Probiotic Product) 1 Cap Cap 1 Cap PO QID 10 Days Keflex (Cephalexin) 500 Mg Cap 500 Mg PO Q8H 7 Days Ferrous Sulfate 325 Mg (65 Mg Iron) Tablet 325 Mg PO TID Colace (Docusate Sodium) 100 Mg Capsule 100 Mg PO HS Coumadin (Warfarin) 4 Mg Tab 4 Mg PO DAILY Lovastatin 20 Mg Tab 20 Mg PO HS Levoxyl (Levothyroxine Sodium) 100 Mcg Tab 100 Mcg PO DAILY Fosamax (Alendronate Sodium) 70 Mg Tab 70 Mg PO Q7D Review of Systems General / Constitutional: No: Fever Eyes: No: Visual changes HENT: No: Headaches Respiratory: Positive: Shortness of Breath Gastrointestinal: No: Abdominal Pain Genitourinary: No: Dysuria Musculoskeletal: No: Pain Skin: No Rash Neurologic: No: Weakness Psychiatric: No: Depression Endocrine: No: Polydipsia Hematologic/Lymphatic: No: Easy Bruising Physical Exam Narrative GENERAL: Well-nourished, well-developed patient. SKIN: Focused skin assessment warm/dry. HEAD: Normocephalic. EYES: No scleral icterus. No injection or drainage. NECK: Supple, trachea midline. No JVD or lymphadenopathy. CARDIOVASCULAR: Regular rate and rhythm without murmurs, gallops, or rubs. RESPIRATORY: Breath sounds equal bilaterally. No accessory muscle use. Patient has rhonchi bibasilarly especially the left base. GASTROINTESTINAL: Abdomen soft, non-tender, nondistended. MUSCULOSKELETAL: No cyanosis. Patient has trace edema of the low extremity. BACK: Nontender without obvious deformity. No CVA tenderness. Neurologic exam normal. Data Data Last Documented VS Vital Signs Date Time Temp Pulse Resp B/P (MAP) Pulse Ox O2 Delivery O2 Flow Rate FiO2 06/10/17 03:34 67 16 99 Nasal Cannula 2.00 06/10/17 02:18 97.7 191/89 (123) Orders Orders Electrocardiogram (06/10/17 03:06) Complete Blood Count With Diff (06/10/17 03:06) Comprehensive Metabolic Panel (06/10/17 03:06) B-Type Natriuretic Peptide (06/10/17 03:06) Prothrombin Time / Inr (Pt) (06/10/17 03:06) Act Partial Throm Time (Ptt) (06/10/17 03:06) Thyroid Stimulating Hormone (06/10/17 03:06) Chest, Single Ap (06/10/17 03:06) Iv Access Insert/Monitor (06/10/17 03:06) Ecg Monitoring (06/10/17 03:06) Oximetry (06/10/17 03:06) Labs Laboratory Tests Test 06/10/17 03:25 06/10/17 04:25 White Blood Count 9.4 TH/MM3 Red Blood Count 3.47 MIL/MM3 Hemoglobin 10.6 GM/DL Hematocrit 32.4 % Mean Corpuscular Volume 93.5 FL Mean Corpuscular Hemoglobin 30.5 PG Mean Corpuscular Hemoglobin Concent 32.7 % Red Cell Distribution Width 14.9 % Platelet Count 328 TH/MM3 Mean Platelet Volume 7.9 FL Neutrophils (%) (Auto) 68.1 % Lymphocytes (%) (Auto) 15.7 % Monocytes (%) (Auto) 10.6 % Eosinophils (%) (Auto) 4.3 % Basophils (%) (Auto) 1.3 % Neutrophils # (Auto) 6.4 TH/MM3 Lymphocytes # (Auto) 1.5 TH/MM3 Monocytes # (Auto) 1.0 TH/MM3 Eosinophils # (Auto) 0.4 TH/MM3 Basophils # (Auto) 0.1 TH/MM3 CBC Comment DIFF FINAL Differential Comment Blood Urea Nitrogen 12 MG/DL Creatinine 0.77 MG/DL Random Glucose 110 MG/DL Total Protein 6.6 GM/DL Albumin 2.8 GM/DL Calcium Level 8.9 MG/DL Alkaline Phosphatase 79 U/L Aspartate Amino Transf (AST/SGOT) 16 U/L Alanine Aminotransferase (ALT/SGPT) 14 U/L Total Bilirubin 0.3 MG/DL Sodium Level 140 MEQ/L Potassium Level 4.0 MEQ/L Chloride Level 102 MEQ/L Carbon Dioxide Level 31.0 MEQ/L Anion Gap 7 MEQ/L Estimat Glomerular Filtration Rate 71 ML/MIN B-Type Natriuretic Peptide 614 PG/ML Thyroid Stimulating Hormone 3rd Gen 5.320 uIU/ML MDM Medical Decision Making Medical Screen Exam Complete: Yes Emergency Medical Condition: Yes Medical Record Reviewed: Yes Interpretation(s) Last Impressions Chest X-Ray 06/10/17 0306 Signed Impressions: Service Date/Time: Saturday, June 10, 2017 04:02 - CONCLUSION: The cardiac/progress lower remains enlarged and bulbus. Lungs are grossly clear. Guevara Carmona MD 4:54 AM. CBC WBC 9.4. Hemoglobin 10.6 hematocrit 32.4. Normal differential. BNP 614. Differential Diagnosis Differential diagnosis including acute exacerbation of CHF, pneumonia, PE, pneumothorax. Narrative Course 87-year-old female with increasing shortness of breath. History of cardiomyopathy and CHF. Lasix 20 mg IV. Chaitanya Majano MD Jun 10, 2017 03:14
[2017-06-10 03:57] LABS: AUTOMATED NEUTROPHIL # 6.4 TH/MM3 (1.8-7.7); BASOPHIL # 0.1 TH/MM3 (0-0.2); BASOPHIL % 1.3 % (0.0-2.0); EOSINOPHIL # 0.4 TH/MM3 (0-0.4); EOSINOPHIL % 4.3 % (0.0-4.0); HEMATOCRIT 32.4 % (35.0-46.0); HEMO FLAGS DIFF FINAL; LYMPH % 15.7 % (9.0-44.0); LYMPHOCYTE # 1.5 TH/MM3 (1.0-4.8); MEAN CELL VOLUME 93.5 FL (80.0-100.0); MEAN CORPUSCULAR HEMOGLOBIN 30.5 PG (27.0-34.0); MEAN CORPUSCULAR HGB CONC 32.7 % (32.0-36.0); MONO % 10.6 % (0.0-8.0); NEUT % 68.1 % (16.0-70.0); PLATELET COUNT 328 TH/MM3 (150-450); RED BLOOD COUNT 3.47 MIL/MM3 (4.00-5.30); RED CELL DISTRIBUTION WIDTH 14.9 % (11.6-17.2); WHITE BLOOD COUNT 9.4 TH/MM3 (4.0-11.0)
[2017-06-10 04:11] LABS: ANION GAP 7 MEQ/L (5-15); AST (GOT) 16 U/L (15-37); BLOOD UREA NITROGEN 12 MG/DL (7-18); CHLORIDE 102 MEQ/L (98-107); GLOMERULAR FILTRATION RATE 71 ML/MIN (>89); SODIUM (NA) 140 MEQ/L (136-145)
[2017-06-10 04:22] LABS: ALKALINE PHOSPHATASE 79 U/L (45-117); ALT (GPT) 14 U/L (10-53); TOTAL BILIRUBIN ADULT 0.3 MG/DL (0.2-1.0)
--- NOTE | 2017-06-10 04:44 | RADRPT ---
EXAM DATE/TIME: 06/10/2017 04:02 [facility] COMPARISON: CHEST SINGLE AP, April 15, 2017, 13:24. INDICATIONS : Shortness of breath MEDICAL HISTORY : Cardiovascular disease. Congestive heart failure. Hypertension. SURGICAL HISTORY : Hysterectomy. Right hip replacement ENCOUNTER: Initial ACUITY: 1 day PAIN SCORE: 5/10 LOCATION: Bilateral chest FINDINGS: A single view of the chest demonstrates the lungs to be symmetrically aerated without evidence of mas s, infiltrate or effusion. The cardiac/pericardial silhouette remains enlarged and bulbous. Osseous structures are intact status post midthoracic vertebroplasty. CONCLUSION: The cardiac/progress lower remains enlarged and bulbus. Lungs are grossly clear. Guevara Carmona MD on June 10, 2017 at 4:43 Board Certified Radiologist. This report was verified electronically.
[2017-06-10 04:55] LABS: APTT (PATIENT) 33.4 SEC (24.3-30.1); INTERNATIONAL NORMALIZED RATIO 2.2 RATIO; PROTHROMBIN TIME - PATIENT 25.4 SEC (9.8-11.6)
[2017-06-10] MEDS ORDERED: FUROSEMIDE 20 MG/2 ML VIAL IV PUSH ONE (05:00)
[2017-06-10] MEDS ORDERED: SENNOSIDES 8.6 MG TAB PO PRN (05:15)
[2017-06-10] MEDS ORDERED: MORPHINE SULFATE 4 MG/ML INJ IV PRN (05:15)
[2017-06-10] MEDS ORDERED: ONDANSETRON HCL 4 MG/2 ML VIAL IVP PRN (05:15)
[2017-06-10] MEDS ORDERED: MAGNESIUM HYDROXIDE SUSP 30 ML CUP PO PRN (05:15)
[2017-06-10] MEDS ORDERED: LACTULOSE SYRUP 20 GM/30 ML CUP PO PRN (05:15)
[2017-06-10] MEDS ORDERED: ACETAMINOPHEN 325 MG TAB PO PRN (05:15)
[2017-06-10] MEDS ORDERED: SODIUM CHLORIDE 0.9% FLUSH 10 ML FLUSH IV FLUSH PRN (05:15)
[2017-06-10] MEDS ORDERED: BISACODYL 10 MG SUPP RECTAL PRN (05:15)
[2017-06-10] MEDS ORDERED: DO NOT ADM ANY ANTICOAGULANT DRUGS OTHER PRN (05:30)
--- NOTE | 2017-06-10 05:31 | HHI.HP ---
[facility] Paco Ybar[facility] Do, MD Admission Diagnosis acute exacerbation CHF Diagnoses: (1) CHF (congestive heart failure) Diagnosis: Principal (2) HTN (hypertension) Diagnosis: Principal (3) A-fib Diagnosis: Principal Travel History International Travel<30 Days: No Contact w/Intl Traveler <30 Da: No Traveled to Known Affected Are: No History of Present Illness This is an 87-year-old female with a PMH of HTN, A. fib on Coumadin, CHF (Echo w/ EF 55-60%) and Hyperlipidemia who was brought to the ER by EMS secondary to SOB. Presented to ER on 06/08/17 for similar complaints, found to have elevated BNP 495 and CXR w/ small bilateral pleural effusions, s/p Lasix in ER and d/c'd home on Lasix, instructed to discontinue HCTZ. Tonight, pt went to lay down to sleep and had severe SOB. No fever, chills or cough. On arrival, BP 191/89, HR 77, O2 sat 95% on RA, Afebrile. BP currently 172/77 HR 86. CBC unremarkable. Chemistry essentially unremarkable. BNP mildly elevated from previous at 614. INR therapeutic at 2.2. CXR with clear lungs. S/p Lasix 20mg IV x1 Review of Systems Except as stated in HPI: all other systems reviewed are Neg ROS: 14 point review of systems otherwise negative. Past Family Social History Past Medical History PMH: HTN, A. fib on Coumadin, CHF (Echo 03/03/15 w/ EF 55-60%) and Hyperlipidemia Past Surgical History PAST SURGICAL HISTORY: Bilateral Cataract Surgery, Right Hip Replacement, RLE Arterial Embolectomy Allergies: Coded Allergies: No Known Allergies (Verified , 06/08/17) Family History PAST FAMILY HISTORY: Reviewed. No h/o DM or CAD Social History PAST SOCIAL HISTORY: Occasional alcohol. Negative for tobacco or drugs. Physical Exam Vital Signs Vital Signs Date Time Temp Pulse Resp B/P (MAP) Pulse Ox O2 Delivery O2 Flow Rate FiO2 06/10/17 03:34 67 16 99 Nasal Cannula 2.00 06/10/17 02:18 97.7 77 20 191/89 (123) 95 Physical Exam PE: GENERAL: Very pleasant elderly white female in no acute distress. HEENT: PERRLA, EOMI. No scleral icterus or conjunctival pallor. No lid lag or facial droop. CARDIOVASCULAR: Regular rate and rhythm. No obvious murmurs to auscultation. No chest tenderness to palpation. RESPIRATORY: Occasional rhonchi, no wheezing. Clear to auscultation. Breath sounds equal bilaterally. GASTROINTESTINAL: Abdomen soft, non-tender, nondistended. BS normal. MUSCULOSKELETAL: Extremities without clubbing, cyanosis, +1 edema. No obvious deformities. NEUROLOGICAL: Awake, alert and oriented x4. No focal neurologic deficits. Moving both upper and lower extremities spontaneously. Laboratory Laboratory Tests Test 06/10/17 03:25 06/10/17 04:25 White Blood Count 9.4 Red Blood Count 3.47 Hemoglobin 10.6 Hematocrit 32.4 Mean Corpuscular Volume 93.5 Mean Corpuscular Hemoglobin 30.5 Mean Corpuscular Hemoglobin Concent 32.7 Red Cell Distribution Width 14.9 Platelet Count 328 Mean Platelet Volume 7.9 Neutrophils (%) (Auto) 68.1 Lymphocytes (%) (Auto) 15.7 Monocytes (%) (Auto) 10.6 Eosinophils (%) (Auto) 4.3 Basophils (%) (Auto) 1.3 Neutrophils # (Auto) 6.4 Lymphocytes # (Auto) 1.5 Monocytes # (Auto) 1.0 Eosinophils # (Auto) 0.4 Basophils # (Auto) 0.1 CBC Comment DIFF FINAL Differential Comment Blood Urea Nitrogen 12 Creatinine 0.77 Random Glucose 110 Total Protein 6.6 Albumin 2.8 Calcium Level 8.9 Alkaline Phosphatase 79 Aspartate Amino Transf (AST/SGOT) 16 Alanine Aminotransferase (ALT/SGPT) 14 Total Bilirubin 0.3 Sodium Level 140 Potassium Level 4.0 Chloride Level 102 Carbon Dioxide Level 31.0 Anion Gap 7 Estimat Glomerular Filtration Rate 71 B-Type Natriuretic Peptide 614 Thyroid Stimulating Hormone 3rd Gen 5.320 Prothrombin Time 25.4 Prothromb Time International Ratio 2.2 Activated Partial Thromboplast Time 33.4 Result Diagram: 06/10/175 06/10/17324 Caprini VTE Risk Assessment Caprini VTE Risk Assessment: Mod/High Risk (score >= 2) Caprini Risk Assessment Model Point Value = 1 Point Value = 2 Point Value = 3 Point Value = 5 Age 41-60 Minor surgery BMI > 25 kg/m2 Swollen legs Varicose veins or History of unexplained or recurrent spontaneous Oral contraceptives or hormone replacement Sepsis (< 1 month) Serious lung disease, including pneumonia (< 1 month) Abnormal pulmonary function Acute myocardial infarction Congestive heart failure (< 1 month) History of inflammatory bowel disease Medical patient at bed rest Age 61-74 Arthroscopic surgery Major open surgery (> 45 min) Laparoscopic surgery (> 45 min) Malignancy Confined to bed (> 72 hours) Immobilizing plaster cast Central venous access Age >= 75 History of VTE Family history of VTE Factor V Leiden Prothrombin [id number] Lupus anticoagulant Anticardiolipin antibodies Elevated serum homocysteine Heparin-induced thrombocytopenia Other congenital or acquired thrombophilia Stroke (< 1 month) Elective arthroplasty Hip, pelvis, or leg fracture Acute spinal cord injury (< 1 month) Prophylaxis Regimen Total Risk Factor Score Risk Level Prophylaxis Regimen 0-1 Low Early ambulation 2 Moderate Order ONE of the following: *Sequential Compression Device (SCD) *Heparin 5000 units SQ BID 3-4 Higher Order ONE of the following medications: *Heparin 5000 units SQ TID *Enoxaparin/Lovenox 40 mg SQ daily (WT < 150 kg, CrCl > 30 mL/min) *Enoxaparin/Lovenox 30 mg SQ daily (WT < 150 kg, CrCl > 10-29 mL/min) *Enoxaparin/Lovenox 30 mg SQ BID (WT < 150 kg, CrCl > 30 mL/min) AND/OR *Sequential Compression Device (SCD) 5 or more Highest Order ONE of the following medications: *Heparin 5000 units SQ TID (Preferred with Epidurals) *Enoxaparin/Lovenox 40 mg SQ daily (WT < 150 kg, CrCl > 30 mL/min) *Enoxaparin/Lovenox 30 mg SQ daily (WT < 150 kg, CrCl > 10-29 mL/min) *Enoxaparin/Lovenox 30 mg SQ BID (WT < 150 kg, CrCl > 30 mL/min) AND *Sequential Compression Device (SCD) Assessment and Plan Problem List: (1) CHF (congestive heart failure) ICD Code: I50.9 - Heart failure, unspecified (2) HTN (hypertension) ICD Code: I10 - Essential (primary) hypertension (3) A-fib ICD Code: I48.91 - A-fib Status: Chronic Assessment and Plan A/P: 1. CHF: Acute on Chronic. Diastolic. Echo 03/03/15 w/ 55-60%, will repeat Echo for follow up. Recent ER presentation 06/08/17 for similar symptoms, BNP 495 s/p Lasix, currently BNP 614, CXR improved from previous on 06/08/17, images reviewed by me. Continue diuresis, monitor I/O. Follows w/ Dr. Gauthier as outpatient, will consult as needed. Resume home B-mckenna, ASA, Statin, start Enalapril. 2. HTN: Uncontrolled. BP 190's on arrival, likely compounded by SOB. BP currently 170's, resume home medications, monitor BP. 3. A-fib: Chronic. On Coumadin, INR therapeutic at 2.2. Will resume Coumadin , check INR in am. 4. DVT Prophylaxis: On Coumadin as above. 5. Social work for d/c planning as needed. 6. Case discussed w/ ER physician at length. Liss Pardo MD Jun 10, 2017 05:31
[2017-06-10] MEDS: FUROSEMIDE 20 MG/2 ML VIAL IV PUSH SCH ×2 (09:09→17:44)
[2017-06-10] MEDS: ASPIRIN EC 325 MG TABEC PO SCH (09:09)
[2017-06-10] MEDS: SODIUM CHLORIDE 0.9% FLUSH 10 ML FLUSH IV FLUSH SCH ×2 (09:09→21:30)
[2017-06-10] MEDS: DOCUSATE SODIUM 50 MG/SENNA 8.6 MG TAB PO SCH ×2 (09:09→21:30)
[2017-06-10] MEDS: METOPROLOL TARTRATE 25 MG TAB PO SCH ×2 (09:09→21:30)
[2017-06-10] MEDS: ENALAPRIL MALEATE 2.5 MG TAB PO SCH (09:09)
--- NOTE | 2017-06-10 11:34 | PD.CONS ---
HPI Consult Requested By Primary Care Physician Paco Ybarra Do, MD History of Present Illness 87-year-old female with a PMH of HTN, A. fib on Coumadin, diastolic CHF EF 60% and Hyperlipidemia who was brought to the ER by EMS secondary to SOB and leg edema. Similar presentation on 06/08/17 treated for HF resolved with Lasix. She reports sudden onset severe SOB. No fever, chills or cough. On arrival, BP 191 /89, HR 77, O2 sat 95% on RA, Afebrile. Cardiology consulted for HF evaluation and management. Review of Systems Consitutional: DENIES: Fatigue, Fever, Chills, Weight gain, Weight loss Eyes: DENIES: Amaurosis Fugax, Change in vision HEENT: DENIES: Lightheadedness, Change in hearing Respiratory: COMPLAINS OF: See HPI, Shortness of breath Cardiovascular: DENIES: See HPI, Chest pain, Palpitations, Syncope, Tachycardia Gastrointestinal: DENIES: Nausea, Vomiting, Change in bowel habits, Reflux, Bloody stools, Melena Genitourinary: DENIES: Urinary incontinence, Difficulty voiding Integumentary: DENIES: Rash Neurologic: DENIES: Tingling or numbness, Memory problems, Poor Balance, Stroke symptoms Musculoskeletal: DENIES: Joint pain, Muscle pain, Limited range of motion, Back pain Psychiatric: DENIES: Anxiety, Depression, Sleep disturbances Hematologic: DENIES: Bruising tendencies, Bleeding tendencies Endocrine: DENIES: Weight gain, Weight loss, Thyroid disease Past Family Social History Allergies: Coded Allergies: No Known Allergies (Verified , 06/08/17) Past Medical History HTN, A. fib on Coumadin, Diastolic CHF Hyperlipidemia Past Surgical History Bilateral Cataract Surgery, Right Hip Replacement, RLE Arterial Embolectomy Reported Medications Reported Meds & Active Scripts Active Potassium Chloride ER (Potassium Chloride) 20 Meq Tab 20 Meq PO DAILY Lasix (Furosemide) 20 Mg Tab 20 Mg PO DAILY Pantoprazole (Pantoprazole Sodium) 40 Mg Tab 40 Mg PO HS 30 Days Oxycodone-Acetaminophen 10-325 mg Tab 1 Tab PO Q6HR PRN Metoprolol Tartrate 25 Mg Tab 25 Mg PO Q12HR 30 Days Aspirin EC (Aspirin) 325 Mg Tabdr 325 Mg PO DAILY 30 Days Reported Zofran (Ondansetron HCl) 4 Mg Tab 4 Mg PO Q6HR PRN Diff-Stat (Probiotic Product) 1 Cap Cap 1 Cap PO QID 10 Days Keflex (Cephalexin) 500 Mg Cap 500 Mg PO Q8H 7 Days Ferrous Sulfate 325 Mg (65 Mg Iron) Tablet 325 Mg PO TID Colace (Docusate Sodium) 100 Mg Capsule 100 Mg PO HS Coumadin (Warfarin) 4 Mg Tab 4 Mg PO DAILY Lovastatin 20 Mg Tab 20 Mg PO HS Levoxyl (Levothyroxine Sodium) 100 Mcg Tab 100 Mcg PO DAILY Fosamax (Alendronate Sodium) 70 Mg Tab 70 Mg PO Q7D Active Ordered Medications Current Medications Medications (Trade) Dose Ordered Sig/Dipti Route Start Time Stop Time Status Last Admin (NS Flush) 2 ml UNSCH PRN IV FLUSH 06/10/17 05:15 (NS Flush) 2 ml BID IV FLUSH 06/10/17 09:00 06/10/17 09:09 (Zofran Inj) 4 mg Q6H PRN IVP 06/10/17 05:15 (Tylenol) 650 mg Q6H PRN PO 06/10/17 05:15 ([place] 5-325 Mg) 1 tab Q4H PRN PO 06/10/17 05:15 (Morphine Inj) 2 mg Q3H PRN IV 06/10/17 05:15 ([place]-Colace) 1 tab BID PO 06/10/17 09:00 06/10/17 09:09 (Milk Of Magnesia Liq) 30 ml Q12H PRN PO 06/10/17 05:15 (Senokot) 17.2 mg Q12H PRN PO 06/10/17 05:15 (Dulcolax Supp) 10 mg DAILY PRN RECTAL 06/10/17 05:15 (Lactulose Liq) 30 ml DAILY PRN PO 06/10/17 05:15 (Vasotec) 2.5 mg DAILY PO 06/10/17 09:00 06/10/17 09:09 (Lasix Inj) 20 mg BID@,18 IV PUSH 06/10/17 09:00 06/10/17 09:09 (Ecotrin Ec) 325 mg DAILY PO 06/10/17 09:00 06/10/17 09:09 (Pravachol) 20 mg HS PO 06/10/17 21:00 (Lopressor) 25 mg Q12HR PO 06/10/17 09:00 06/10/17 09:09 (Coumadin) 4 mg DAILY@1600 PO 06/10/17 16:00 Miscellaneous Information ALL NURSING DEPARTME... UNSCH PRN OTHER 06/10/17 05:30 06/11/17 05:29 (Coumadin Booklet) 1 ONCE ONCE OTHER 06/10/17 16:00 06/10/17 16:01 Physical Exam Vital Signs Vital Signs Date Time Temp Pulse Resp B/P (MAP) Pulse Ox O2 Delivery O2 Flow Rate FiO2 06/10/17 10:31 62 06/10/17 07:15 97.7 72 18 168/92 (117) 95 06/10/17 06:08 76 16 153/76 (101) 99 Nasal Cannula 2.00 06/10/17 05:19 86 16 173/73 (106) 99 Nasal Cannula 2.00 06/10/17 03:34 67 16 99 Nasal Cannula 2.00 06/10/17 02:18 97.7 77 20 191/89 (123) 95 Physical Exam GENERAL: Well-nourished, well-developed patient. SKIN: Warm and dry. HEAD: Normocephalic. EYES: No scleral icterus. No injection or drainage. NECK: Supple, trachea midline. No JVD or lymphadenopathy. CARDIOVASCULAR: Regular rate and rhythm without murmurs, gallops, or rubs. RESPIRATORY: Breath sounds equal bilaterally. No accessory muscle use. GASTROINTESTINAL: Abdomen soft, non-tender, nondistended. EXTREMITIES: No cyanosis, or edema. NEUROLOGICAL: Awake, alert, and oriented x 3. Non-focal. Laboratory Laboratory Tests Test 06/10/17 03:25 06/10/17 04:25 White Blood Count 9.4 Red Blood Count 3.47 Hemoglobin 10.6 Hematocrit 32.4 Mean Corpuscular Volume 93.5 Mean Corpuscular Hemoglobin 30.5 Mean Corpuscular Hemoglobin Concent 32.7 Red Cell Distribution Width 14.9 Platelet Count 328 Mean Platelet Volume 7.9 Neutrophils (%) (Auto) 68.1 Lymphocytes (%) (Auto) 15.7 Monocytes (%) (Auto) 10.6 Eosinophils (%) (Auto) 4.3 Basophils (%) (Auto) 1.3 Neutrophils # (Auto) 6.4 Lymphocytes # (Auto) 1.5 Monocytes # (Auto) 1.0 Eosinophils # (Auto) 0.4 Basophils # (Auto) 0.1 CBC Comment DIFF FINAL Differential Comment Blood Urea Nitrogen 12 Creatinine 0.77 Random Glucose 110 Total Protein 6.6 Albumin 2.8 Calcium Level 8.9 Alkaline Phosphatase 79 Aspartate Amino Transf (AST/SGOT) 16 Alanine Aminotransferase (ALT/SGPT) 14 Total Bilirubin 0.3 Sodium Level 140 Potassium Level 4.0 Chloride Level 102 Carbon Dioxide Level 31.0 Anion Gap 7 Estimat Glomerular Filtration Rate 71 B-Type Natriuretic Peptide 614 Free Thyroxine 0.91 Thyroid Stimulating Hormone 3rd Gen 5.320 Prothrombin Time 25.4 Prothromb Time International Ratio 2.2 Activated Partial Thromboplast Time 33.4 Result Diagram: 06/10/175 06/10/17324 Imaging Last Impressions Chest X-Ray 06/10/17 030 Signed Impressions: Service Date/Time: Monday, June 10, 2017 04:02 - CONCLUSION: The cardiac/progress lower remains enlarged and bulbus. Lungs are grossly clear. Guevara Carmona MD Assessment and Plan Problem List: (1) CHF (congestive heart failure) ICD Codes: I50.9 - Heart failure, unspecified Plan: 87 y/o F admitted with acute on chronic diastolic HF exacerbation. Doing better after IV Lasix. Telemetry Afib with adequate ventricular response. BNP elevated , No TROPONIN. Last ischemic work up in chart was in 2011 which was unremarkable. Cardiac risk factors include HTN, Age and HLD. Similar presentation recently. Ischemic work up recommended. Recommendations: - Cycle Cardiac markers x3 - Cont diuresis - MPI - Avoid electrolytes abnormalities - Low salt diet - Daily weight - Cont rate control for Afib and OAC - B-mckenna, ASA, Statin, start Enalapril. (2) Afib ICD Codes: I48.91 - Unspecified atrial fibrillation Status: Acute (3) Hypertension ICD Codes: I10 - Essential (primary) hypertension Status: Acute Problem Qualifiers (1) CHF (congestive heart failure): Lorenzo Can MD Jun 10, 2017 11:34
--- NOTE | 2017-06-10 11:37 | HHI.PR ---
Subjective Remarks Follow up for dyspnea. The patient reports feeling slightly better this morning however still with shortness of breath, much worse with any minimal exertion. She states even getting up to the bedside commode she experiences significant shortness of breath. She reports continued bilateral leg swelling, right worse than left. She states she was wheezing yesterday but none today. Denies any chest pain today. Her O2 sat is 95% on room air. She reports a good amount of urine output however was not documented overnight. Objective Vitals Vital Signs Date Time Temp Pulse Resp B/P (MAP) Pulse Ox O2 Delivery O2 Flow Rate FiO2 06/10/17 10:31 62 06/10/17 07:15 97.7 72 18 168/92 (117) 95 06/10/17 06:08 76 16 153/76 (101) 99 Nasal Cannula 2.00 06/10/17 05:19 86 16 173/73 (106) 99 Nasal Cannula 2.00 06/10/17 03:34 67 16 99 Nasal Cannula 2.00 06/10/17 02:18 97.7 77 20 191/89 (123) 95 Result Diagram: 06/10/17 0325 06/10/17 0325 Imaging Last Impressions Chest X-Ray 06/10/17 0306 Signed Impressions: Service Date/Time: Saturday, June 10, 2017 04:02 - CONCLUSION: The cardiac/progress lower remains enlarged and bulbus. Lungs are grossly clear. Guevara Carmona MD Objective Remarks GENERAL: Well-nourished, well-developed pleasant elderly female patient in [facility]. SKIN: Warm and dry. No rash. HEENT: Normocephalic. Atraumatic.Pupils equal and round. No scleral icterus. Mucous membranes pink and moist. NECK: Supple. Trachea midline. CARDIOVASCULAR: Irregular rate and rhythm. S1, S2 noted. No murmur appreciated. RESPIRATORY: No accessory muscle use. Crackles at bilateral bases. Breath sounds equal bilaterally. GASTROINTESTINAL: Abdomen soft, non-tender, nondistended. Normoactive bowel sounds x4. MUSCULOSKELETAL: No obvious deformities. RLE 2+ pitting edema up to distal knee , LLE 1+ pitting edema up to mid marroquin. NEUROLOGICAL: Awake and alert. No obvious cranial nerve deficits. Motor grossly within normal limits. Normal speech. PSYCHIATRIC: Appropriate mood and affect; insight and judgment normal. Medications and IVs Current Medications Medications (Trade) Dose Ordered Sig/Dipti Route Start Time Stop Time Status Last Admin (NS Flush) 2 ml UNSCH PRN IV FLUSH 06/10/17 05:15 (NS Flush) 2 ml BID IV FLUSH 06/10/17 09:00 06/10/17 09:09 (Zofran Inj) 4 mg Q6H PRN IVP 06/10/17 05:15 (Tylenol) 650 mg Q6H PRN PO 06/10/17 05:15 ([place] 5-325 Mg) 1 tab Q4H PRN PO 06/10/17 05:15 (Morphine Inj) 2 mg Q3H PRN IV 06/10/17 05:15 ([place]-Colace) 1 tab BID PO 06/10/17 09:00 06/10/17 09:09 (Milk Of Magnesia Liq) 30 ml Q12H PRN PO 06/10/17 05:15 (Senokot) 17.2 mg Q12H PRN PO 06/10/17 05:15 (Dulcolax Supp) 10 mg DAILY PRN RECTAL 06/10/17 05:15 (Lactulose Liq) 30 ml DAILY PRN PO 06/10/17 05:15 (Vasotec) 2.5 mg DAILY PO 06/10/17 09:00 06/10/17 09:09 (Lasix Inj) 20 mg BID@09,18 IV PUSH 06/10/17 09:00 06/10/17 09:09 (Ecotrin Ec) 325 mg DAILY PO 06/10/17 09:00 06/10/17 09:09 (Pravachol) 20 mg HS PO 06/10/17 21:00 (Lopressor) 25 mg Q12HR PO 06/10/17 09:00 06/10/17 09:09 (Coumadin) 4 mg DAILY@1600 PO 06/10/17 16:00 Miscellaneous Information ALL NURSING DEPARTME... UNSCH PRN OTHER 06/10/17 05:30 06/11/17 05:29 (Coumadin Booklet) 1 ONCE ONCE OTHER 06/10/17 16:00 06/10/17 16:01 A/P Problem List: (1) CHF (congestive heart failure) ICD Code: I50.9 - Heart failure, unspecified (2) HTN (hypertension) ICD Code: I10 - Essential (primary) hypertension (3) A-fib ICD Code: I48.91 - A-fib Status: Chronic Assessment and Plan 87-year-old female with a PMH of HTN, A. fib on Coumadin, CHF (Echo 03/03/15 w/ EF 55-60%) and Hyperlipidemia who was brought to the ER by EMS secondary to SOB. Presented to ER on 06/08/17 for similar complaints, found to have elevated BNP 495 and CXR w/ small bilateral pleural effusions, s/p Lasix in ER and d/c'd home on Lasix, instructed to discontinue HCTZ. Acute Exacerbation of Chronic Diastolic CHF: Reviewed EMR, Echo 03/03/15 w/ 55- 60%, Echo 05/19/17 with EF 70-75%. BNP elevated at 614, CXR improved from previous on 06/08/17, images reviewed by me. Continue diuresis with IV Lasix 20mg bid. Monitor strict Is&Os. Consult care program resident Dr. Gauthier. Resumed home B- mckenna, ASA, Statin, start Enalapril. HTN: Uncontrolled. BP 190's on arrival, likely compounded by SOB. BP currently 170's, resume home medications, monitor BP. Better controlled today, currently 124/59. A-fib: Chronic. On Coumadin, INR therapeutic at 2.2. Resume Coumadin, monitor INR. DVT Prophylaxis: On Coumadin Discharge Planning Discharge pending further clinical improvement and cardiology evaluation. Possible discharge tomorrow. Jenny Talbert PA-C Jun 10, 2017 11:37 am
--- NOTE | 2017-06-10 15:53 | EKG ---
Date Performed: 06/10/2017 Time Performed: 02:47:21 PTAGE: 87 years EKG: ATRIAL FIBRILLATION RIGHT AXIS DEVIATION SEPTAL MYOCARDIAL INFARCTION ABNORMAL ECG PREVIOUS TRACING : 06/08/2017 18.19 Compared to prior tracing no significant change DOCTOR: Eloina Martinez Interpretating Date/Time 06/10/2017 15:52:13
[2017-06-10] MEDS ORDERED: WARFARIN SOD 4 MG TAB PO SCH (16:00)
[2017-06-10] MEDS: WARFARIN SOD 4 MG TAB PO SCH (16:28)
[2017-06-10] MEDS: PRAVASTATIN SOD 20 MG TAB PO SCH (21:30)
[2017-06-11] VITALS (10 sets, daily range): BP systolic 132–176; BP diastolic 62–78; PULSE 60–91; RESP 18; TEMP 96.8–98.7; O2SAT 95–98
--- NOTE | 2017-06-11 08:11 | HHI.PR ---
Subjective Remarks Follow up for dyspnea, CHF exacerbation. The patient reports feeling slightly better today. She reports continued shortness of breath, worse with exertion, however improved compared to yesterday. Denies any cough or chest pains. She does have an occasional flutter in her chest which she attributes to the afib. Denies any fevers/chills. Her leg swelling is much improved. She has no other medical complaints at this time. Objective Vitals Vital Signs Date Time Temp Pulse Resp B/P (MAP) Pulse Ox O2 Delivery O2 Flow Rate FiO2 06/11/17 05:11 98.0 82 18 176/72 (106) 98 06/11/17 04:02 90 06/11/17 01:55 98.4 68 18 140/78 (98) 97 06/11/17 00:01 62 06/10/17 20:09 82 06/10/17 19:32 98.9 73 18 147/80 (102) 98 06/10/17 15:42 98.3 70 17 147/88 (107) 97 06/10/17 15:41 75 06/10/17 11:30 98.1 84 16 124/59 (80) 96 06/10/17 10:31 62 I/O 06/10/17 06/10/17 06/10/17 06/11/17 06/11/17 06/11/17 07:00 15:00 23:00 07:00 15:00 23:00 Intake Total 236 ml 680 ml Output Total 100 ml 900 ml Balance 136 ml -220 ml Intake Oral 236 ml 680 ml Output Urine Total 100 ml 900 ml # Voids 1 6 # Bowel Movements 1 Result Diagram: 06/10/17 0325 06/10/17 0325 Imaging Last Impressions Chest X-Ray 06/10/17 0306 Signed Impressions: Service Date/Time: Saturday, June 10, 2017 04:02 - CONCLUSION: The cardiac/progress lower remains enlarged and bulbus. Lungs are grossly clear. Guevara Carmona MD Objective Remarks GENERAL: Well-nourished, well-developed pleasant elderly female patient in [facility]. SKIN: Warm and dry. No rash. HEENT: Normocephalic. Atraumatic.Pupils equal and round. No scleral icterus. Mucous membranes pink and moist. CARDIOVASCULAR: Irregular rate and rhythm. S1, S2 noted. No murmur appreciated. RESPIRATORY: No accessory muscle use. Minimal Crackles at left base, otherwise clear. Breath sounds equal bilaterally. GASTROINTESTINAL: Abdomen soft, non-tender, nondistended. Normoactive bowel sounds x4. MUSCULOSKELETAL: No obvious deformities. Trace bilateral lower extremity edema. NEUROLOGICAL: Awake and alert. No obvious cranial nerve deficits. Motor grossly within normal limits. Normal speech. PSYCHIATRIC: Appropriate mood and affect; insight and judgment normal. Medications and IVs Current Medications Medications (Trade) Dose Ordered Sig/Dipti Route Start Time Stop Time Status Last Admin (NS Flush) 2 ml UNSCH PRN IV FLUSH 06/10/17 05:15 (NS Flush) 2 ml BID IV FLUSH 06/10/17 09:00 06/10/17 21:30 (Zofran Inj) 4 mg Q6H PRN IVP 06/10/17 05:15 (Tylenol) 650 mg Q6H PRN PO 06/10/17 05:15 ([place] 5-325 Mg) 1 tab Q4H PRN PO 06/10/17 05:15 (Morphine Inj) 2 mg Q3H PRN IV 06/10/17 05:15 ([place]-Colace) 1 tab BID PO 06/10/17 09:00 06/10/17 21:30 (Milk Of Magnesia Liq) 30 ml Q12H PRN PO 06/10/17 05:15 (Senokot) 17.2 mg Q12H PRN PO 06/10/17 05:15 (Dulcolax Supp) 10 mg DAILY PRN RECTAL 06/10/17 05:15 (Lactulose Liq) 30 ml DAILY PRN PO 06/10/17 05:15 (Vasotec) 2.5 mg DAILY PO 06/10/17 09:00 06/10/17 09:09 (Lasix Inj) 20 mg BID@09,18 IV PUSH 06/10/17 09:00 06/10/17 17:44 (Ecotrin Ec) 325 mg DAILY PO 06/10/17 09:00 06/10/17 09:09 (Pravachol) 20 mg HS PO 06/10/17 21:00 06/10/17 21:30 (Lopressor) 25 mg Q12HR PO 06/10/17 09:00 06/10/17 21:30 (Coumadin) 4 mg DAILY@1600 PO 06/10/17 16:00 06/10/17 16:28 A/P Problem List: (1) CHF (congestive heart failure) ICD Code: I50.9 - Heart failure, unspecified (2) HTN (hypertension) ICD Code: I10 - Essential (primary) hypertension (3) A-fib ICD Code: I48.91 - A-fib Status: Chronic Assessment and Plan 87-year-old female with a PMH of HTN, A. fib on Coumadin, CHF (Echo 03/03/15 w/ EF 55-60%) and Hyperlipidemia who was brought to the ER by EMS secondary to SOB. Presented to ER on 06/08/17 for similar complaints, found to have elevated BNP 495 and CXR w/ small bilateral pleural effusions, s/p Lasix in ER and d/c'd home on Lasix, instructed to discontinue HCTZ. Acute Exacerbation of Chronic Diastolic CHF: Reviewed EMR, Echo 03/03/15 w/ 55- 60%, Echo 05/19/17 with EF 70-75%. BNP elevated at 614, CXR improved from previous on 06/08/17, images reviewed by me. -Continue diuresis with IV Lasix 20mg bid. -Monitor strict Is&Os. -Consult event specialist product demonstrator Dr. Gauthier, seen by Dr. Rangel, appreciate recommendations. -Serial troponins negative x3. -Resumed home B-mckenna, ASA, Statin, start Enalapril. -Nuclear stress test ordered. HTN: Uncontrolled. BP 190's on arrival, likely compounded by SOB. Resumed home medications, added enalapril, monitor BP. A-fib: Chronic. On Coumadin, INR therapeutic at 2.2. Resume Coumadin, monitor INR. DVT Prophylaxis: On Coumadin Discharge Planning Possible discharge if nuclear stress test unremarkable and cleared by cardiology. Problem Qualifiers (1) CHF (congestive heart failure): Jenny Talbert PA-C Jun 11, 2017 08:11
[2017-06-11 09:14] LABS: BASOPHIL # 0.1 TH/MM3 (0-0.2); EOSINOPHIL # 0.3 TH/MM3 (0-0.4); EOSINOPHIL % 3.7 % (0.0-4.0); HEMATOCRIT 33.6 % (35.0-46.0); HEMO FLAGS DIFF FINAL; LYMPH % 15.1 % (9.0-44.0); LYMPHOCYTE # 1.1 TH/MM3 (1.0-4.8); MEAN CELL VOLUME 93.9 FL (80.0-100.0); MEAN CORPUSCULAR HEMOGLOBIN 30.7 PG (27.0-34.0); MEAN CORPUSCULAR HGB CONC 32.7 % (32.0-36.0); MONO % 9.9 % (0.0-8.0); NEUT % 70.3 % (16.0-70.0); PLATELET COUNT 284 TH/MM3 (150-450); RED BLOOD COUNT 3.58 MIL/MM3 (4.00-5.30); RED CELL DISTRIBUTION WIDTH 14.8 % (11.6-17.2); WHITE BLOOD COUNT 7.1 TH/MM3 (4.0-11.0)
[2017-06-11 09:23] LABS: PROTHROMBIN TIME - PATIENT 22.9 SEC (9.8-11.6)
[2017-06-11 10:03] LABS: ALKALINE PHOSPHATASE 79 U/L (45-117); ALT (GPT) 13 U/L (10-53); ANION GAP 8 MEQ/L (5-15); AST (GOT) 12 U/L (15-37); BICARBONATE 32.2 MEQ/L (21.0-32.0); BLOOD UREA NITROGEN 10 MG/DL (7-18); CHLORIDE 99 MEQ/L (98-107); GLOMERULAR FILTRATION RATE 84 ML/MIN (>89); POTASSIUM 3.7 MEQ/L (3.5-5.1); SODIUM (NA) 139 MEQ/L (136-145); TOTAL BILIRUBIN ADULT 0.5 MG/DL (0.2-1.0)
[2017-06-11] MEDS: SODIUM CHLORIDE 0.9% FLUSH 10 ML FLUSH IV FLUSH SCH ×2 (11:01→20:56)
[2017-06-11] MEDS: FUROSEMIDE 20 MG/2 ML VIAL IV PUSH SCH ×2 (11:01→18:18)
[2017-06-11] MEDS: DOCUSATE SODIUM 50 MG/SENNA 8.6 MG TAB PO SCH ×2 (11:01→20:56)
[2017-06-11] MEDS: ENALAPRIL MALEATE 2.5 MG TAB PO SCH (11:02)
[2017-06-11] MEDS: METOPROLOL TARTRATE 25 MG TAB PO SCH ×2 (11:02→20:56)
[2017-06-11] MEDS: ASPIRIN EC 325 MG TABEC PO SCH (11:02)
--- NOTE | 2017-06-11 11:20 | PD.CARD.PN ---
Subjective Subjective Remarks no overnight events CE x3 - Objective Medications Current Medications Medications (Trade) Dose Ordered Sig/Dipti Route Start Time Stop Time Status Last Admin (NS Flush) 2 ml UNSCH PRN IV FLUSH 06/10/17 05:15 (NS Flush) 2 ml BID IV FLUSH 06/10/17 09:00 06/11/17 11:01 (Zofran Inj) 4 mg Q6H PRN IVP 06/10/17 05:15 (Tylenol) 650 mg Q6H PRN PO 06/10/17 05:15 ([place] 5-325 Mg) 1 tab Q4H PRN PO 06/10/17 05:15 (Morphine Inj) 2 mg Q3H PRN IV 06/10/17 05:15 (Sydnee-Colace) 1 tab BID PO 06/10/17 09:00 06/10/17 21:30 (Milk Of Magnesia Liq) 30 ml Q12H PRN PO 06/10/17 05:15 (Senokot) 17.2 mg Q12H PRN PO 06/10/17 05:15 (Dulcolax Supp) 10 mg DAILY PRN RECTAL 06/10/17 05:15 (Lactulose Liq) 30 ml DAILY PRN PO 06/10/17 05:15 (Vasotec) 2.5 mg DAILY PO 06/10/17 09:00 06/11/17 11:02 (Lasix Inj) 20 mg BID@09,18 IV PUSH 06/10/17 09:00 06/11/17 11:01 (Ecotrin Ec) 325 mg DAILY PO 06/10/17 09:00 06/11/17 11:02 (Pravachol) 20 mg HS PO 06/10/17 21:00 06/10/17 21:30 (Lopressor) 25 mg Q12HR PO 06/10/17 09:00 06/11/17 11:02 (Coumadin) 4 mg DAILY@1600 PO 06/10/17 16:00 06/10/17 16:28 Vital Signs / I&O Vital Signs Date Time Temp Pulse Resp B/P (MAP) Pulse Ox O2 Delivery O2 Flow Rate FiO2 06/11/17 08:26 96.8 82 18 155/78 (103) 98 06/11/17 05:11 98.0 82 18 176/72 (106) 98 06/11/17 04:02 90 06/11/17 01:55 98.4 68 18 140/78 (98) 97 06/11/17 00:01 62 06/10/17 20:09 82 06/10/17 19:32 98.9 73 18 147/80 (102) 98 06/10/17 15:42 98.3 70 17 147/88 (107) 97 06/10/17 15:41 75 06/10/17 11:30 98.1 84 16 124/59 (80) 96 I/O 06/10/17 06/10/17 06/10/17 06/11/17 06/11/17 06/11/17 07:00 15:00 23:00 07:00 15:00 23:00 Intake Total 236 ml 680 ml Output Total 100 ml 900 ml Balance 136 ml -220 ml Intake Oral 236 ml 680 ml Output Urine Total 100 ml 900 ml # Voids 1 6 # Bowel Movements 1 Physical Exam GENERAL: Well-nourished, well-developed patient. SKIN: Warm and dry. HEAD: Normocephalic. EYES: No scleral icterus. No injection or drainage. NECK: Supple, trachea midline. No JVD or lymphadenopathy. CARDIOVASCULAR: Regular rate and rhythm without murmurs, gallops, or rubs. RESPIRATORY: Breath sounds equal bilaterally. No accessory muscle use. GASTROINTESTINAL: Abdomen soft, non-tender, nondistended. EXTREMITIES: No cyanosis, or edema. NEUROLOGICAL: Awake, alert, and oriented x 3. Non-focal. Laboratory Laboratory Tests Test 06/10/17 12:42 06/10/17 17:42 06/11/17 00:33 06/11/17 08:40 Total Creatine Kinase 52 U/L 55 U/L 54 U/L Troponin I 0.03 NG/ML 0.02 NG/ML 0.02 NG/ML White Blood Count 7.1 TH/MM3 Red Blood Count 3.58 MIL/MM3 Hemoglobin 11.0 GM/DL Hematocrit 33.6 % Mean Corpuscular Volume 93.9 FL Mean Corpuscular Hemoglobin 30.7 PG Mean Corpuscular Hemoglobin Concent 32.7 % Red Cell Distribution Width 14.8 % Platelet Count 284 TH/MM3 Mean Platelet Volume 7.7 FL Neutrophils (%) (Auto) 70.3 % Lymphocytes (%) (Auto) 15.1 % Monocytes (%) (Auto) 9.9 % Eosinophils (%) (Auto) 3.7 % Basophils (%) (Auto) 1.0 % Neutrophils # (Auto) 5.0 TH/MM3 Lymphocytes # (Auto) 1.1 TH/MM3 Monocytes # (Auto) 0.7 TH/MM3 Eosinophils # (Auto) 0.3 TH/MM3 Basophils # (Auto) 0.1 TH/MM3 CBC Comment DIFF FINAL Differential Comment Prothrombin Time 22.9 SEC Prothromb Time International Ratio 2.0 RATIO Blood Urea Nitrogen 10 MG/DL Creatinine 0.67 MG/DL Random Glucose 105 MG/DL Total Protein 6.0 GM/DL Albumin 2.6 GM/DL Calcium Level 8.8 MG/DL Alkaline Phosphatase 79 U/L Aspartate Amino Transf (AST/SGOT) 12 U/L Alanine Aminotransferase (ALT/SGPT) 13 U/L Total Bilirubin 0.5 MG/DL Sodium Level 139 MEQ/L Potassium Level 3.7 MEQ/L Chloride Level 99 MEQ/L Carbon Dioxide Level 32.2 MEQ/L Anion Gap 8 MEQ/L Estimat Glomerular Filtration Rate 84 ML/MIN B-Type Natriuretic Peptide 348 PG/ML Imaging Last Impressions Chest X-Ray 06/10/17 0306 Signed Impressions: Service Date/Time: Saturday, June 10, 2017 04:02 - CONCLUSION: The cardiac/progress lower remains enlarged and bulbus. Lungs are grossly clear. Guevara Carmona MD Assessment and Plan Problem List: (1) CHF (congestive heart failure) ICD Codes: I50.9 - Heart failure, unspecified Plan: 87 y/o F admitted with acute on chronic diastolic HF exacerbation. Doing better after IV Lasix. Telemetry Afib with adequate ventricular response. BNP elevated, No TROPONIN. Last ischemic work up in chart was in 2011 which was unremarkable. Cardiac risk factors include HTN, Age and HLD. Similar presentation recently. Ischemic work up recommended. Recommendations: - Cont diuresis - MPI - Avoid electrolytes abnormalities - Low salt diet - Daily weight - Cont rate control for Afib and OAC - B-mckenna, ASA, Statin, start Enalapril. (2) Afib ICD Codes: I48.91 - Unspecified atrial fibrillation Status: Acute (3) Hypertension ICD Codes: I10 - Essential (primary) hypertension Status: Acute Problem Qualifiers (1) CHF (congestive heart failure): Lorenzo Can MD Jun 11, 2017 11:20
[2017-06-11] MEDS ORDERED: REGADENOSON INJ 0.4 MG/5 ML SYR ONE (16:34)
--- NOTE | 2017-06-11 17:56 | RADRPT ---
EXAM DATE/TIME: 06/11/2017 15:56 [place] COMPARISON: No previous studies available for comparison. INDICATIONS : Dyspnea. Coronary artery disease. Atrial fibrillation. DOSE: 27.2 mCi Tc99m Myoview at stress. 8.1 mCi Tc99m Myoview at rest. 0.4 mg Lexiscan STRESS SYMPTOMS: Chest pain and dyspnea. EJECTION FRACTION: > 70% MEDICAL HISTORY : Hypertension. Congestive heart failure. Peripheral vascular disease. Afib. SURGICAL HISTORY : RLE Arterial Embolectomy, Right Hip Replacement ENCOUNTER: Initial ACUITY: 1 day PAIN SCALE: 0/10 LOCATION: Substernal chest TECHNIQUE: The patient underwent pharmacologic stress with infusion of prescribed dose. Continuous ECG tracing was monitored during stress. Gated SPECT imaging was performed after stress and conventional SPECT i maging was performed at rest. The examination was performed on a SPECT/CT scanner, both attenuation and non-corrected datasets were reviewed. FINDINGS: DISTRIBUTION: The maximum perfused segment at stress is in the anterior wall. PERFUSION STUDY: Fixed perfusion deficit at the apex. Small to moderate areas of mild reversible perfusion deficit see n of the anterior and lateral hair. GATED STUDY: Mildly hypokinetic [place]. There is otherwise intact wall motion and thickening without hypokinetic or dyskinetic segments. CONCLUSION: 1. Small to moderate areas of mild stress-induced ischemia in the anterior and lateral hair. 2. 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 3. Mild apical hypokinesia. Normal wall motion otherwise and normal calculated ejection fraction. RISK CATEGORY: Intermediate Pramod Elizabeth MD on June 11, 2017 at 17:52 Board Certified Radiologist. This report was verified electronically.
[2017-06-11] MEDS: WARFARIN SOD 4 MG TAB PO SCH (18:16)
[2017-06-11] MEDS: ACETAMINOPHEN/HYDROcodone 325 MG/5 MG TAB PO PRN (18:16)
[2017-06-11] MEDS: PRAVASTATIN SOD 20 MG TAB PO SCH (20:56)
[2017-06-12] VITALS (12 sets, daily range): BP systolic 120–157; BP diastolic 58–85; PULSE 63–92; RESP 16–19; TEMP 97.8–98.5; O2SAT 94–96
[2017-06-12] MEDS: METOPROLOL TARTRATE 25 MG TAB PO SCH ×2 (08:35→21:11)
[2017-06-12] MEDS: SODIUM CHLORIDE 0.9% FLUSH 10 ML FLUSH IV FLUSH SCH ×2 (08:35→21:11)
[2017-06-12] MEDS: ENALAPRIL MALEATE 2.5 MG TAB PO SCH (08:35)
[2017-06-12] MEDS: DOCUSATE SODIUM 50 MG/SENNA 8.6 MG TAB PO SCH ×2 (08:35→21:00)
[2017-06-12] MEDS: ASPIRIN EC 325 MG TABEC PO SCH (08:35)
[2017-06-12] MEDS: FUROSEMIDE 20 MG/2 ML VIAL IV PUSH SCH ×2 (08:35→18:29)
--- NOTE | 2017-06-12 10:53 | HHI.PR ---
Subjective Remarks Follow up for dyspnea, CHF exacerbation. The patient continues to report improvement of shortness of breath and dyspnea on exertion. Leg swelling resolved. Denies any chest pains. Discussed results of nuclear stress test, she believes she had one done 5years ago which was unremarkable. She would agree to cardiac catheterization if recommended by cardiology. The patient has no other medical complaints at this time. Objective Vitals Vital Signs Date Time Temp Pulse Resp B/P (MAP) Pulse Ox O2 Delivery O2 Flow Rate FiO2 06/12/17 07:33 98.2 80 17 157/85 (109) 94 06/12/17 05:34 72 06/12/17 04:34 98.1 80 18 135/78 (97) 96 06/12/17 00:08 98.4 75 18 139/77 (97) 96 06/11/17 23:28 78 06/11/17 20:56 18 06/11/17 20:40 98.7 68 18 132/62 (85) 98 06/11/17 20:15 91 06/11/17 12:27 96.8 60 18 152/76 (101) 95 I/O 06/11/17 06/11/17 06/11/17 06/12/17 06/12/17 06/12/17 06:59 14:59 22:59 06:59 14:59 22:59 Intake Total 680 ml 900 ml Output Total 900 ml 101 ml 900 ml 500 ml Balance -220 ml -101 ml 0 ml -500 ml Intake Oral 680 ml 900 ml Output Urine Total 900 ml 100 ml 900 ml 500 ml Stool Total 1 ml # Voids 6 # Bowel Movements 2 Result Diagram: 06/11/17 0840 06/11/17 0840 Imaging Last Impressions Myocardial Perfusion Scan Nuc Med 06/11/17 0000 Signed Impressions: Service Date/Time: Sunday, June 11, 2017 15:56 - CONCLUSION: 1. Small to moderate areas of mild stress-induced ischemia in the anterior and lateral hair. 2. 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 3. Mild apical hypokinesia. Normal wall motion otherwise and normal calculated ejection fraction. RISK CATEGORY: Intermediate Pramod Elizabeth MD Chest X-Ray 06/10/17 0306 Signed Impressions: Service Date/Time: Saturday, June 10, 2017 04:02 - CONCLUSION: The cardiac/progress lower remains enlarged and bulbus. Lungs are grossly clear. Guevara A. Sevigny, MD Objective Remarks GENERAL: Well-nourished, well-developed pleasant elderly female patient in NAD. SKIN: Warm and dry. Right groin embolectomy site with mild edema/erythema surrounding the distal portion of the surgical site. HEENT: Normocephalic. Atraumatic.Pupils equal and round. No scleral icterus. Mucous membranes pink and moist. CARDIOVASCULAR: Irregular rate and rhythm. S1, S2 noted. No murmur appreciated. RESPIRATORY: No accessory muscle use. Lungs clear to auscultation today, no crackles. Breath sounds equal bilaterally. GASTROINTESTINAL: Abdomen soft, non-tender, nondistended. Normoactive bowel sounds x4. MUSCULOSKELETAL: No obvious deformities. Trace bilateral lower extremity edema. NEUROLOGICAL: Awake and alert. No obvious cranial nerve deficits. Motor grossly within normal limits. Normal speech. PSYCHIATRIC: Appropriate mood and affect; insight and judgment normal. Medications and IVs Current Medications Medications (Trade) Dose Ordered Sig/Dipti Route Start Time Stop Time Status Last Admin (NS Flush) 2 ml UNSCH PRN IV FLUSH 06/10/17 05:15 (NS Flush) 2 ml BID IV FLUSH 06/10/17 09:00 06/12/17 08:35 (Zofran Inj) 4 mg Q6H PRN IVP 06/10/17 05:15 (Tylenol) 650 mg Q6H PRN PO 06/10/17 05:15 ([place] 5-325 Mg) 1 tab Q4H PRN PO 06/10/17 05:15 06/11/17 18:16 (Morphine Inj) 2 mg Q3H PRN IV 06/10/17 05:15 (Sydnee-Colace) 1 tab BID PO 06/10/17 09:00 06/12/17 08:35 (Milk Of Magnesia Liq) 30 ml Q12H PRN PO 06/10/17 05:15 (Senokot) 17.2 mg Q12H PRN PO 06/10/17 05:15 (Dulcolax Supp) 10 mg DAILY PRN RECTAL 06/10/17 05:15 (Lactulose Liq) 30 ml DAILY PRN PO 06/10/17 05:15 (Vasotec) 2.5 mg DAILY PO 06/10/17 09:00 06/12/17 08:35 (Lasix Inj) 20 mg BID@09,18 IV PUSH 06/10/17 09:00 06/12/17 08:35 (Ecotrin Ec) 325 mg DAILY PO 06/10/17 09:00 06/12/17 08:35 (Pravachol) 20 mg HS PO 06/10/17 21:00 06/11/17 20:56 (Lopressor) 25 mg Q12HR PO 06/10/17 09:00 06/12/17 08:35 (Coumadin) 4 mg DAILY@1600 PO 06/10/17 16:00 06/11/17 18:16 A/P Problem List: (1) CHF (congestive heart failure) ICD Code: I50.9 - Heart failure, unspecified (2) HTN (hypertension) ICD Code: I10 - Essential (primary) hypertension (3) A-fib ICD Code: I48.91 - A-fib Status: Chronic Assessment and Plan 87-year-old female with a PMH of HTN, A. fib on Coumadin, CHF (Echo 03/03/15 w/ EF 55-60%) and Hyperlipidemia who was brought to the ER by EMS secondary to SOB. Presented to ER on 06/08/17 for similar complaints, found to have elevated BNP 495 and CXR w/ small bilateral pleural effusions, s/p Lasix in ER and d/c'd home on Lasix, instructed to discontinue HCTZ. Acute Exacerbation of Chronic Diastolic CHF: Reviewed EMR, Echo 03/03/15 w/ 55- 60%, Echo 05/19/17 with EF 70-75%. BNP elevated at 614, CXR improved from previous on 06/08/17, images reviewed by me. -Continue diuresis with IV Lasix 20mg bid. -Monitor strict Is&Os. -Consult mill controller Dr. Gauthier, seen by Dr. Rangel, appreciate recommendations. -Serial troponins negative x3. -Resumed home B-mckenna, ASA, Statin, started Enalapril. -Nuclear stress test showed small to moderate areas of mild stress-induced ischemia in the anterior and lateral hair -Plan for cardiac catheterization tomorrow, transfer to [facility] HTN: Uncontrolled. BP 190's on arrival, likely compounded by SOB. Resumed home medications, added enalapril, monitor BP, improved. A-fib: Chronic. On Coumadin, INR therapeutic at 2.2. Resume Coumadin, monitor INR. Right Groin Surgical Site with Mild Cellulitis: outpatient wound culture done by PCP Dr. Ybarra 06/10 with heavy growth pseudomonas (report with sensitivities in chart). Will repeat wound culture. Start on Levaquin 750mg daily. DVT Prophylaxis: On Coumadin Discharge Planning Admit to inpatient. Transfer to [facility]. Plan for [facility] tomorrow. Problem Qualifiers (1) CHF (congestive heart failure): Jenny Talbert PA-C Jun 12, 2017 10:53
--- NOTE | 2017-06-12 16:02 | PD.CARD.PN ---
Subjective Subjective Remarks no CV complaints Results of MPI noted Objective Medications Current Medications Medications (Trade) Dose Ordered Sig/Dipti Route Start Time Stop Time Status Last Admin (NS Flush) 2 ml UNSCH PRN IV FLUSH 06/10/17 05:15 (NS Flush) 2 ml BID IV FLUSH 06/10/17 09:00 06/12/17 08:35 (Zofran Inj) 4 mg Q6H PRN IVP 06/10/17 05:15 (Tylenol) 650 mg Q6H PRN PO 06/10/17 05:15 ([place] 5-325 Mg) 1 tab Q4H PRN PO 06/10/17 05:15 06/11/17 18:16 (Morphine Inj) 2 mg Q3H PRN IV 06/10/17 05:15 ([place]ydnee-Colace) 1 tab BID PO 06/10/17 09:00 06/12/17 08:35 (Milk Of Magnesia Liq) 30 ml Q12H PRN PO 06/10/17 05:15 (Senokot) 17.2 mg Q12H PRN PO 06/10/17 05:15 (Dulcolax Supp) 10 mg DAILY PRN RECTAL 06/10/17 05:15 (Lactulose Liq) 30 ml DAILY PRN PO 06/10/17 05:15 (Vasotec) 2.5 mg DAILY PO 06/10/17 09:00 06/12/17 08:35 (Lasix Inj) 20 mg BID@09,18 IV PUSH 06/10/17 09:00 06/12/17 08:35 (Ecotrin Ec) 325 mg DAILY PO 06/10/17 09:00 06/12/17 08:35 (Pravachol) 20 mg HS PO 06/10/17 21:00 06/11/17 20:56 (Lopressor) 25 mg Q12HR PO 06/10/17 09:00 06/12/17 08:35 (Coumadin) 4 mg DAILY@1600 PO 06/10/17 16:00 Future Hold 06/11/17 18:16 Vital Signs / I&O Vital Signs Date Time Temp Pulse Resp B/P (MAP) Pulse Ox O2 Delivery O2 Flow Rate FiO2 06/12/17 12:00 83 06/12/17 11:46 98.5 63 16 137/73 (94) 94 06/12/17 08:15 77 06/12/17 07:33 98.2 80 17 157/85 (109) 94 06/12/17 05:34 72 06/12/17 04:34 98.1 80 18 135/78 (97) 96 06/12/17 00:08 98.4 75 18 139/77 (97) 96 06/11/17 23:28 78 06/11/17 20:56 18 06/11/17 20:40 98.7 68 18 132/62 (85) 98 06/11/17 20:15 91 I/O 06/11/17 06/11/17 06/11/17 06/12/17 06/12/17 06/12/17 07:00 15:00 23:00 07:00 15:00 23:00 Intake Total 680 ml 900 ml Output Total 900 ml 101 ml 900 ml 500 ml Balance -220 ml -101 ml 0 ml -500 ml Intake Oral 680 ml 900 ml Output Urine Total 900 ml 100 ml 900 ml 500 ml Stool Total 1 ml # Voids 6 # Bowel Movements 2 Physical Exam GENERAL: Well-nourished, well-developed patient. SKIN: Warm and dry. HEAD: Normocephalic. EYES: No scleral icterus. No injection or drainage. NECK: Supple, trachea midline. No JVD or lymphadenopathy. CARDIOVASCULAR: Regular rate and rhythm without murmurs, gallops, or rubs. RESPIRATORY: Breath sounds equal bilaterally. No accessory muscle use. GASTROINTESTINAL: Abdomen soft, non-tender, nondistended. EXTREMITIES: No cyanosis, or edema. NEUROLOGICAL: Awake, alert, and oriented x 3. Non-focal. Imaging Last Impressions Myocardial Perfusion Scan Nuc Med 06/11/17 0000 Signed Impressions: Service Date/Time: Sunday, June 11, 2017 15:56 - CONCLUSION: 1. Small to moderate areas of mild stress-induced ischemia in the anterior and lateral hair. 2. 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 3. Mild apical hypokinesia. Normal wall motion otherwise and normal calculated ejection fraction. RISK CATEGORY: Intermediate Pramod Elizabeth MD Chest X-Ray 06/10/17 0306 Signed Impressions: Service Date/Time: Saturday, June 10, 2017 04:02 - CONCLUSION: The cardiac/progress lower remains enlarged and bulbus. Lungs are grossly clear. Guevara Carmona MD Assessment and Plan Problem List: (1) CHF (congestive heart failure) ICD Codes: I50.9 - Heart failure, unspecified Plan: 87 y/o F admitted with acute on chronic diastolic HF exacerbation. Doing better after IV Lasix. Telemetry Afib with adequate ventricular response. BNP elevated, negative TROPONIN. Last ischemic work up in chart was in 2011 which was unremarkable. Cardiac risk factors include HTN, Age and HLD. Similar presentation recently. Echo unremarkable. MPI showing moderate reversible defects in the anterior and lateral hair. LHC recommended. Recommendations: - LHC in AM, Keep NPO aftermidnight - Avoid electrolytes abnormalities - Low salt diet - Daily weight - Cont rate control for Afib - Cont B-mckenna, ASA, Statin, start Enalapril. - Tx to CIC (2) Afib ICD Codes: I48.91 - Unspecified atrial fibrillation Status: Acute (3) Hypertension ICD Codes: I10 - Essential (primary) hypertension Status: Acute Problem Qualifiers (1) CHF (congestive heart failure): Lorenzo Can MD Jun 12, 2017 16:02
[2017-06-12] MEDS: LEVOFLOXACIN 750 MG TAB PO SCH (18:29)
[2017-06-12] MEDS: PRAVASTATIN SOD 20 MG TAB PO SCH (21:11)
[2017-06-13] VITALS (8 sets, daily range): BP systolic 137–148; BP diastolic 63–71; PULSE 69–86; RESP 16–20; TEMP 97.9–98.7; O2SAT 94–96
[2017-06-13 06:17] LABS: INTERNATIONAL NORMALIZED RATIO 1.8 RATIO; PROTHROMBIN TIME - PATIENT 20.1 SEC (9.8-11.6)
[2017-06-13 06:29] LABS: BICARBONATE 35.2 MEQ/L (21.0-32.0); POTASSIUM 3.3 MEQ/L (3.5-5.1)
[2017-06-13] MEDS ORDERED: POTASSIUM CHLORIDE 20 MEQ CONTROLLED RELEASE TAB PO ONE (06:45)
--- NOTE | 2017-06-13 07:42 | HHI.PR ---
Subjective Remarks Follow up for dyspnea, CHF exacerbation. The patient reports continued occasional shortness of breath and dyspnea on exertion, however much improved compared to her arrival. Leg swelling resolved. Denies any chest pains. Going for heart cath today. Objective Vitals Vital Signs Date Time Temp Pulse Resp B/P (MAP) Pulse Ox O2 Delivery O2 Flow Rate FiO2 06/13/17 04:14 97.9 86 18 137/63 (87) 96 06/13/17 03:56 84 06/13/17 00:15 78 06/12/17 23:35 98.0 73 18 127/58 (81) 95 06/12/17 20:36 97.8 89 18 120/67 (84) 94 06/12/17 20:30 92 06/12/17 16:01 97.9 70 19 140/69 (92) 95 06/12/17 16:00 86 06/12/17 12:00 83 06/12/17 11:46 98.5 63 16 137/73 (94) 94 06/12/17 08:15 77 I/O 06/12/17 06/12/17 06/12/17 06/13/17 06/13/17 06/13/17 07:00 15:00 23:00 07:00 15:00 23:00 Intake Total 720 ml Output Total 500 ml Balance -500 ml 720 ml Intake Oral 720 ml Output Urine Total 500 ml # Bowel Movements 1 Result Diagram: 06/11/17 0840 06/13/17 0529 Imaging Last Impressions Myocardial Perfusion Scan Nuc Med 06/11/17 0000 Signed Impressions: Service Date/Time: Sunday, June 11, 2017 15:56 - CONCLUSION: 1. Small to moderate areas of mild stress-induced ischemia in the anterior and lateral hair. 2. 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 3. Mild apical hypokinesia. Normal wall motion otherwise and normal calculated ejection fraction. RISK CATEGORY: Intermediate Pramod Elizabeth MD Chest X-Ray 06/10/17 0306 Signed Impressions: Service Date/Time: Saturday, June 10, 2017 04:02 - CONCLUSION: The cardiac/progress lower remains enlarged and bulbus. Lungs are grossly clear. Guevara Carmona MD Objective Remarks GENERAL: Well-nourished, well-developed pleasant elderly female patient in NAD. SKIN: Warm and dry. Right groin embolectomy site with mild edema/erythema surrounding the distal portion of the surgical site. HEENT: Normocephalic. Atraumatic.Pupils equal and round. No scleral icterus. Mucous membranes pink and moist. CARDIOVASCULAR: Irregular rate and rhythm. S1, S2 noted. No murmur appreciated. RESPIRATORY: No accessory muscle use. Lungs clear to auscultation today, no crackles. Breath sounds equal bilaterally. GASTROINTESTINAL: Abdomen soft, non-tender, nondistended. Normoactive bowel sounds x4. MUSCULOSKELETAL: No obvious deformities. No lower extremity edema bilaterally. Calves nontender bilaterally. NEUROLOGICAL: Awake and alert. No obvious cranial nerve deficits. Motor grossly within normal limits. Normal speech. PSYCHIATRIC: Appropriate mood and affect; insight and judgment normal. Medications and IVs Current Medications Medications (Trade) Dose Ordered Sig/Dipti Route Start Time Stop Time Status Last Admin (NS Flush) 2 ml UNSCH PRN IV FLUSH 06/10/17 05:15 06/12/17 18:29 (NS Flush) 2 ml BID IV FLUSH 06/10/17 09:00 06/12/17 21:11 (Zofran Inj) 4 mg Q6H PRN IVP 06/10/17 05:15 (Tylenol) 650 mg Q6H PRN PO 06/10/17 05:15 ([place] 5-325 Mg) 1 tab Q4H PRN PO 06/10/17 05:15 06/11/17 18:16 (Morphine Inj) 2 mg Q3H PRN IV 06/10/17 05:15 ([place]-Colace) 1 tab BID PO 06/10/17 09:00 06/12/17 08:35 (Milk Of Magnesia Liq) 30 ml Q12H PRN PO 06/10/17 05:15 (Senokot) 17.2 mg Q12H PRN PO 06/10/17 05:15 (Dulcolax Supp) 10 mg DAILY PRN RECTAL 06/10/17 05:15 (Lactulose Liq) 30 ml DAILY PRN PO 06/10/17 05:15 (Vasotec) 2.5 mg DAILY PO 06/10/17 09:00 06/12/17 08:35 (Lasix Inj) 20 mg BID@,18 IV PUSH 06/10/17 09:00 06/12/17 18:29 (Ecotrin Ec) 325 mg DAILY PO 06/10/17 09:00 06/12/17 08:35 (Pravachol) 20 mg HS PO 06/10/17 21:00 06/12/17 21:11 (Lopressor) 25 mg Q12HR PO 06/10/17 09:00 06/12/17 21:11 (Coumadin) 4 mg DAILY@1600 PO 06/10/17 16:00 Future Hold 06/11/17 18:16 (Levaquin) 750 mg DAILY PO 06/12/17 18:00 06/19/17 17:59 06/12/17 18:29 A/P Problem List: (1) CHF (congestive heart failure) ICD Code: I50.9 - Heart failure, unspecified (2) HTN (hypertension) ICD Code: I10 - Essential (primary) hypertension (3) A-fib ICD Code: I48.91 - A-fib Status: Chronic Assessment and Plan 87-year-old female with a PMH of HTN, A. fib on Coumadin, CHF (Echo 03/03/15 w/ EF 55-60%) and Hyperlipidemia who was brought to the ER by EMS secondary to SOB. Presented to ER on 06/08/17 for similar complaints, found to have elevated BNP 495 and CXR w/ small bilateral pleural effusions, s/p Lasix in ER and d/c'd home on Lasix, instructed to discontinue HCTZ. Acute Exacerbation of Chronic Diastolic CHF: Reviewed EMR, Echo 03/03/15 w/ 55- 60%, Echo 05/19/17 with EF 70-75%. BNP elevated at 614, CXR improved from previous on 06/08/17, images reviewed by me. -Continue diuresis with IV Lasix 20mg bid. -Monitor strict Is&Os. -Consult instrument adjuster Dr. Gauthier, seen by Dr. Rangel, appreciate recommendations. -Serial troponins negative x3. -Resumed home B-mckenna, ASA, Statin, started Enalapril. -Nuclear stress test showed small to moderate areas of mild stress-induced ischemia in the anterior and lateral hair -Plan for cardiac catheterization today, transfer to [facility] HTN: Uncontrolled. BP 190's on arrival, likely compounded by SOB. Resumed home medications, added enalapril, monitor BP, improved. A-fib: Chronic. On Coumadin, INR therapeutic at 2.2. Resume Coumadin, monitor INR. Right Groin Surgical Site with Mild Cellulitis: outpatient wound culture done by PCP Dr. Ybarra 06/10 with heavy growth pseudomonas (report with sensitivities in chart). Repeated wound culture. Start on Levaquin 750mg daily. DVT Prophylaxis: On Coumadin Discharge Planning 0740hrs: Admit to inpatient. Transfer to [facility]. Plan for [facility] today. 1100hrs: Patient cleared by Dr. Rangel post catheterization. The patient complained of continued shortness of breath today. The patient's daughter is very adamant about keeping her in the hospital another night. Her daughter does not feel she is ready for discharge. The patient did have slight worsening of renal function overnight. Will transition to po Lasix and repeat BMP in am. Will also request PT eval and home oxygen walk test. Problem Qualifiers (1) CHF (congestive heart failure): Jenny Talbert PA-C Jun 13, 2017 7:41 am
[2017-06-13] MEDS ORDERED: VERAPAMIL HCL 5 MG/2 ML VIAL ONE (08:35)
[2017-06-13] MEDS ORDERED: HEPARIN-NS/PF INJ 500 ML ONE ×2 (08:35→09:03)
[2017-06-13] MEDS ORDERED: NITROGLYCERIN INJ 5 ML ONE (08:36)
[2017-06-13] MEDS ORDERED: HEPARIN SODIUM - IV 10,000 UNITS/10 ML VIAL ONE (08:36)
[2017-06-13] MEDS ORDERED: MIDAZOLAM HCL 2 MG/2 ML VIAL ONE (08:40)
[2017-06-13] MEDS: DOCUSATE SODIUM 50 MG/SENNA 8.6 MG TAB PO SCH ×2 (09:00→21:00)
[2017-06-13] MEDS: ENALAPRIL MALEATE 2.5 MG TAB PO SCH (09:00)
[2017-06-13] MEDS: FUROSEMIDE 20 MG/2 ML VIAL IV PUSH SCH (09:00)
[2017-06-13] MEDS: METOPROLOL TARTRATE 25 MG TAB PO SCH ×2 (09:00→21:14)
[2017-06-13] MEDS: LEVOFLOXACIN 750 MG TAB PO SCH (09:00)
[2017-06-13] MEDS: ASPIRIN EC 325 MG TABEC PO SCH (09:00)
[2017-06-13] MEDS ORDERED: MISC INFORMATION XX ONE (09:45)
--- NOTE | 2017-06-13 09:51 | CATHPROC ---
[employer] HIS Report Study Information Study Number Admission Scheduled Start Study Start [id number] Jun 12 2017 4:14PM 06/13/2017 Jun 13 2017 8:09AM [facility] Service Cardiac Catheterization Admit Source Facility Department Emergency department [facility] - [employer] Teacher Physician and Clinical Staff Initial Lorenzo Salgado Network Systems Integrator Amalia Rea,BRANT Network Systems Integrator Jesusita Driscoll RN Recorder Nakia Avelar,RT(R) Recorder Lucía Caba RCIS TECH2 Scrub Mayra Vyas,RT(R) Procedures Performed Procedure Location (Site) Vessel Name Coronary Angiograms LCA Left Coronary Coronary Angiograms RCA Right Coronary L Heart Cath Equipment Time Theatrical Trouper Description Size Mfg Part Number Used/Scraped TRANSDUCER, TRUWAVE [id number] 08:20 [employer] ESPITIA * Used W/JERMANCK *[id number] [id number] *[id number] [id number] *[id number] [id number] *[id number] WIRE, HYDROSTEER 150CM [id number] 09:16 DAIG/[employer]. [employer] 150CM Used ANGLED GLIDE *[id number] 08:20 [employer] PACK, CCL CUSTOM * Used *[id number] 08:20 [employer] SUPPORT, ARTERIAL ADULT [id number] *[id number] Used BAND, RADIAL COMPRESSION TR [id number] 09:25 [employer] 24CM Used SHORT 24 *[id number] 08:20 Blood cell Storage MEDICAL WIRE, 3MMJ .035 180CM 180CM Used *[id number] 08:20 NAM[employer] MANIFOLD, 4 PORT * Used *[id number] 08:20 [employer] OMNIPAQUE, 350 MG, 150ML 150ML [id number] Used [id number] 08:20 [place] [employer] BL[employer]ET,WARM AIR CCL * Used *[id number] SHEATH, FR6 TRANSRADIAL [id number] 08:20 [employer] FR 6 Used SLENDER 10CM *[id number] SHEATH, FR6 TRANSRADIAL RM*[id number] 09:15 [employer] FR 6 Used SLENDER 10CM *[id number] Equipment Model, Serial, Lot Number and Expiration Data Description Model Number Serial Number Lot Number Expiration Date BAND, RADIAL COMPRESSION TR [id number] 03-15-2020 SHORT 24 WIRE, HYDROSTEER 150CM [id number] 02-13-2020 DUNIA PINTO History: Current Medications Medication Dosage/Unit Route Frequency Last Date/Time Taken VASOTEC Coumadin ASA Statins (any) LASIX Beta Cheyanne History: Allergies Allergy Reaction No Known Allergies History: Risk Factors Family History of Hypertension Dyslipidemia Previous RI Previous Heart Failure Premature CAD Yes Yes Yes No Yes Prior Valve Prior PCI Prior CABG Surgery No No No Cerebrovascular Peripheral Artery Chronic Lung On Dialysis Diabetes Disease Disease Disease No No Yes No No History: Symptoms/Diagnosis Selection Items SOB History: Stress Tests Stress or Imaging Studies Performed Yes Standard Exercise Stress Test No Stress Echo No Stress Test SPECT Stress Test SPECT Result Stress Test SPECT Ischemia Risk/Extent Yes Positive Intermediate Stress Test CMR No Cardiac CTA Coronary Calcium Score No No History: Arrhythmias Selection Items Atrial fibrillation History: Other Disease Selection Items CHF History: Other Current Smoker No Labs Hgb (g/dl) Hct (%) WBC (l/cumm) Platelets (thousands) 11.60-17.00 35.00-51.00 4.00-11.00 150.00-450.00 11.0 33.6 7.1 284 Glucose (mg/dl) BUN (mg/dl) Creatinine (mg/dl) BUN:Creatinine (1:x) 74.00-106.00 7.00-18.00 0.50-1.30 10.00-20.00 94 15 1.0 15 Na (meq/l) K (meq/l) 136.00-145.00 3.50-5.10 141 3.3 INR (PTT:PT) 0.90-1.10 1.8 Troponin I (ng/ml) CPK (u/l) 0.02-0.05 26.00-308.00 0.02 54 Medication Medication Total Dose (Bolus/Oral) Medication Total Dosage/Unit 1% XYLOCAINE 40 mL FENTANYL 50 mcg RADIAL COCKTAIL 5 mL (Bolus) VERSED 2 mg Medications (Bolus/Oral) Medication Time Given Dosage/Unit Administered By Reason VERSED 06/13/2017 8:54:45 AM 1 mg Amalia Rea 1 mg VERSED given in lab by Amalia Rea, RN in Right Antecubital via Peripheral IV. Ordered by Co Lorenzo Hernandez. FENTANYL 06/13/2017 8:55:00 AM 25 mcg Amalia Rea 25 mcg FENTANYL given in lab by Amalia Rea, BRANT in Right Antecubital via Peripheral IV. Ordered b y RangelJuanOlivia Lorenzo. 1% XYLOCAINE 06/13/2017 8:55:43 AM 20 mL Amalia Rea 20 mL 1% XYLOCAINE given in lab by Amalia Rea, BRANT in Right Radial via Subcutaneous. Ordered by C ox-Olivia Lorenzo. 1% XYLOCAINE 06/13/2017 9:11:40 AM 20 mL Juan Carlos-Olivia Lorenzo 20 mL 1% XYLOCAINE given in lab by Lorenzo Can in Left Radial via Subcutaneous. Ordered by Lorenzo Rae. VERSED 06/13/2017 9:11:49 AM 1 mg Amalia Rea 1 mg VERSED given in lab by Amalia Rea, BRANT in Right Antecubital via Peripheral IV. Ordered by Co x-Lorenzo Baker. FENTANYL 06/13/2017 9:12:00 AM 25 mcg Amalia Rea 25 mcg FENTANYL given in lab by Amalia Rea, BRANT in Right Antecubital via Peripheral IV. Ordered b y Rangel-Olivia Lorenzo. Ntg 200mcg Verapamil 2.5mg Heparin RADIAL COCKTAIL 06/13/2017 9:14:06 AM 5 mL (Bolus) Rangel-Olivia Lorenzo 2500U 5 mL (Bolus) RADIAL COCKTAIL given in lab by Lorenzo Can in Left Radial via Radial. Using [Solu tion Name]. Ordered by Lorenzo Can. Reason: Ntg 200mcg Verapamil 2.5mg Heparin 2500U. Initial Case Assessment Cardiovascular HR Rhythm NIBP Chest Pain 80 a-fib 169/71 2 Edema Present Skin color Skin None Normal Warm Dry Circulatory - Right Pulses Radial 3 Scale (0,1,2,3,4,d) Circulatory - Left Pulses Radial Scale (0,1,2,3,4,d) Neurological State Oriented to time-place- Alert Moves all extremities person Respiration - General Respiration Rate SpO2 (%) (B/min) 20 94 Chronological Log Time Study Chronological Log 8:27:36 Patient arrived via Bed. 8:30:03 Patient Name, D.O.B, / Armband Verified By R.N. 8:30:04 Consent signed by the physician and the patient and verified by the Ship Construction Teacher staff. 8:30:06 Pre-op and post- op instructions given; patient acknowledges understanding of instructions. 8:30:10 Verbal Stimulation=2 Physical Stimulation=2 Airway=2 Respiration=2 TOTAL=8. (0=absent, 1=li mited, 2=present) 8:30:29 Presedation assessment performed by Ship Construction Teacher RN. 8:30:33 Allens test performed on the right radial and ulnar artery. 8:30:39 Patient has been NPO for More than 6Hrs. 8:30:40 Skin Breakdown- bandage from surgery right groin. 8:30:41 Patient Warmer Placed on the Table. 8:30:42 Sanjuana Prominences Protected 8:30:44 A # 20 IV was noted in the Antecubital (right). Grade = 0 8:31:00 History and physical on the chart or being dictated. Assessment: Initial Case, HR=80 BPM, Rhythm=a-fib, PHAC=862/71 mmhg, Chest Pain=2, Edema=None, Color=Normal, Skin = Warm, Dry Right Pulses: Radial=3 8:31:03 Left Pulses: Wesley Ped=2, Femoral=2 Neurological: State=Alert, Ox3, OLGUIN Respiration: Resp=20 B/min, SpO2=94 % Vitals capture started with the following parameters, Patient=Adult, Interval=5 min, Initial Pre qouts=138 mmHg, 8:34:18 Deflation Rate=5 mmHg, Cuff placed on Left Arm 8:35:29 HR=87 bpm, APDY=191/71 mmhg, SpO2=95.0 %, Resp=21 B/min, Pain=2, Renée=10, Mercer=2 8:36:54 Reference ECG taken 8:40:01 HR=86 bpm, NJGB=769/73 mmhg, SpO2=96.0 %, Resp=16 B/min, Pain=2, Renée=10, Mercer=2 8:43:50 Right Radial and left groin prepped with 2% chlorhexidine, and draped after a 3 min. waiting time. 8:45:27 HR=85 bpm, GBDV=616/87 mmhg, SpO2=97.0 %, Resp=21 B/min, Pain=2, Renée=10, Mercer=2 8:46:13 MD arrived. 8:49:57 HR=72 bpm, NZFV=250/86 mmhg, SpO2=97.0 %, Resp=19 B/min, Pain=2, Renée=10, Mercer=2 8:51:43 Pressure channel 1 zeroed. 1 mg VERSED given in lab by Amalia Rea, RN in Right Antecubital via Peripheral IV. Ordered by Juan José, 8:54:45 Lorenzo. 8:55:00 HR=79 bpm, BVGY=309/75 mmhg, SpO2=98.0 %, Resp=19 B/min, Pain=2, Renée=10, Mercer=2 25 mcg FENTANYL given in lab by Amalia Rea, BRANT in Right Antecubital via Peripheral IV. Orde red by Juan José, 8:55:00 Lorenzo. Time Out. Correct patient, correct procedure, correct physician, power injector not loaded with contrast with surgical 8:55:03 team present. Time Out Concurred by , individual staff in procedure. 8:55:37 Case Start 20 mL 1% XYLOCAINE given in lab by Amalia Rea, RN in Right Radial via Subcutaneous. Ordered by Juan José, 8:55:43 Lorenzo. 8:59:59 HR=88 bpm, NJCS=553/80 mmhg, SpO2=98.0 %, Resp=18 B/min, Pain=2, Renée=10, Mercer=2 9:04:56 HR=90 bpm, CWMA=486/89 mmhg, SpO2=93.0 %, Resp=13 B/min, Pain=2, Renée=10, Mercer=2 9:07:46 Vitals capture stopped. Vitals capture started with the following parameters, Patient=Adult, Interval=5 min, Initial Pre hbwnl=584 mmHg, 9:07:47 Deflation Rate=5 mmHg, Cuff placed on Left Arm 9:08:27 ZKNU=473/85 mmhg, SpO2=75.0 %, Pain=2, Renée=10, Mercer=2 9:10:00 Allens test performed on the left radial and ulnar artery. 9:10:14 Left Radial prepped with 2% chlorhexidine, and draped after a 3 min. waiting time. 20 mL 1% XYLOCAINE given in lab by Lorenzo Can in Left Radial via Subcutaneous. Ordered by Juan José, 9:11:40 Lorenzo. 1 mg VERSED given in lab by Amalia Rea, RN in Right Antecubital via Peripheral IV. Ordered by Juan José, 9:11:49 Lorenzo. 25 mcg FENTANYL given in lab by Amalia Rea, RN in Right Antecubital via Peripheral IV. Orde red by Juan José, 9:12:00 Lorenzo. 9:13:32 HR=80 bpm, VKAM=479/79 mmhg, ZqJ1=624.0 %, Resp=8 B/min, Pain=2, Renée=10, Mercer=2 9:13:42 Access site was Radial Artery. A SHEATH, FR6 TRANSRADIAL SLENDER 10CM FR 6 was advanced into the Fem Art (right) using the Perc utaneous 9:13:54 technique. 5 mL (Bolus) RADIAL COCKTAIL given in lab by Lorenzo Can in Left Radial via Radial. Using [Solution Name]. 9:14:06 Ordered by Lorenzo Can. Reason: Ntg 200mcg Verapamil 2.5mg Heparin 2500U. A JR 4.0 INFINITI CATHETER FR 5 was advanced over a wire. OMNIPAQUE, 350 MG, 150ML 150ML was use d for 9:14:43 injections. 9:15:51 The previous wire was exchanged for a WIRE, HYDROSTEER 150CM ANGLED GLIDE 150CM. 9:17:19 The previous wire was exchanged for a WIRE, 3MMJ .035 180CM 180CM. 9:17:46 Wire removed 9:18:23 HR=92 bpm, VLXM=324/64 mmhg, SpO2=99.0 %, Resp=16 B/min, Pain=2, Renée=10, Mercer=2 9:18:37 The RCA was injected and visualized at various angles. OMNIPAQUE, 350 MG, 150ML 150ML used. After removing the current catheter a JL 4.0 INFINITI CATHETER FR 5 was advanced over a WIRE, 3M MJ .035 180CM 9:18:46 180CM. Recorded Pressure: Ao, HR=94, Condition=Condition 1 9:20:07 (Aorta) Ao 137/69/101 9:20:19 The LCA was injected and visualized at various angles. OMNIPAQUE, 350 MG, 150ML 150ML use d. After removing the current catheter a PIGTAIL ANG. INFINITI CATHETER FR 5 was advanced over a WIRE, 3MMJ .035 9:21:16 180CM 180CM. Recorded Pressure: LV, HR=99, Condition=Condition 1 9:23:53 (Left Ventricle) LV 140/7/11 Recorded Pressure: LV, Ao, FC=238, Condition=Condition 1 9:23:55 (Left Ventricle) LV 138/13/11, (Aorta) Ao 147/69/106 9:23:55 HR=89 bpm, NCHH=387/73 mmhg, NmJ9=846.0 %, Resp=19 B/min, Pain=2, Renée=10, Mercer=2 9:24:31 Catheter was removed 9:24:34 Case End Radial Compression Device Used. 14 mLs of air placed in BAND, RADIAL COMPRESSION TR SHORT 24 2 4CM. Affected 9:27:26 hand 99 % O2 saturation. 9:27:57 No case complications noted. 9:27:59 Cine recording checked. 9:28:00 Bedside Report will be given. 9:28:05 Contrast Scanned 9:28:08 A Left Heart Cath was performed. 9:28:32 HR=86 bpm, TETD=818/68 mmhg, KjG0=723.0 %, Resp=19 B/min, Pain=2, Renée=10, Mercer=2 9:37:02 Patient moved to bed End Study - Contrast Media Used In Study Contrast Total Opened (mL) Total Used (mL) Total Wasted (mL) Omnipaque 35 35 0 End Study - Maximum Contrast Load Max Contrast Load (mL) 329.5 End Study - Radiation Exposure Fluoro Time (minutes) 4.4 End Study - Patient Disposition Complications Transferred To Interventional Outcome No Telemetry Bed No attempt made
--- NOTE | 2017-06-13 10:55 | MA ---
cc: YON KHAN DATE OF 1930 DATE OF PROCEDURE 06/13/2017 PROCEDURE PERFORMED 1. Left heart catheterization. 2. Selective right and left coronary angiography. 3. Left ventriculogram. INDICATION Chest pain with positive nuclear stress test. Intermediate risk. DESCRIPTION OF PROCEDURE Consent signed. The patient was brought into the cardiac soap slabber in a fasting state. The left radial arm and wrist was prepped and draped in sterile fashion using 1% lidocaine for local anesthesia. Using a micropuncture kit, a 6-Divehi slender Sheath was inserted into the left radial artery, then selective right and left coronary angiography was performed with JR-4 and JL-4 diagnostic catheters. Angiography was taken in multiple views. All catheters were exchanged over a wire, then an angled pigtail was introduced over the ventricle over a wire. This was followed by pressure recordings, left ventriculogram and pullback. The patient tolerated the procedure well, without complications. Estimated blood loss less than 30 cc. Total contrast used 70 cc. The left radial access site was closed with a TR Band. RESULTS LEFT VENTRICLE: The left ventricular pressure was 140/7 with an LVEDP of 11. The aortic pressure was 147/69 with a mean of 106. The left ventricle revealed symmetrically kera ventricle with an estimated ejection fraction of 60%. ANGIOGRAPHIC 1. The right coronary artery is a small nondominant vessel, is patent with nonobstructive coronary artery disease. 2. The left main is short and patent and measuring more than 5 mm and is giving off a circumflex artery, LAD and a ramus artery. 3. The LAD is a transapical vessel. It is giving off one small diagonal vessel ; it is tortuous and with nonobstructive coronary artery disease. 4. The left circumflex artery is a dominant vessel, is giving off two OM vessels and the PDA and is patent. 5. The ramus vessel is patent with ADELITA-3 flow and nonobstructive coronary artery disease. CONCLUSION 1. Nonobstructive coronary artery disease. 2. Preserved LV systolic function. RECOMMENDATIONS 1. The patient will go to the [facility] for post-cath care. 2. Continue aggressive medical management for primary prevention of coronary artery disease. 3. Anticipated discharge today. 4. The patient should follow with employment consultant upon discharge. MD HILARIA Arnold/SSB /9:28 AM /10:44 AM [facility]
[2017-06-13] MEDS ORDERED: IOHEXOL 350 MG/ML 50 ML BTL (for Cath Lab) OTHER ONE (14:12)
[2017-06-13] MEDS: POTASSIUM CHLORIDE 10 MEQ CONTROLLED RELEASE TAB PO SCH (17:31)
[2017-06-13] MEDS: FUROSEMIDE 20 MG TAB PO SCH (17:31)
[2017-06-13] MEDS: WARFARIN SOD 4 MG TAB PO SCH (17:31)
[2017-06-13] MEDS: ACETAMINOPHEN/HYDROcodone 325 MG/5 MG TAB PO PRN (21:14)
[2017-06-13] MEDS: PRAVASTATIN SOD 20 MG TAB PO SCH (21:14)
[2017-06-13] MEDS: SODIUM CHLORIDE 0.9% FLUSH 10 ML FLUSH IV FLUSH SCH (21:15)
[2017-06-14] VITALS: BP 115/58; PULSE 63; RESP 20; TEMP 98.3; O2SAT 95
[2017-06-14] MEDS: ACETAMINOPHEN/HYDROcodone 325 MG/5 MG TAB PO PRN (03:07)
[2017-06-14 04:00] VITALS: BP 139/63; PULSE 64; RESP 20; TEMP 98; O2SAT 95
[2017-06-14 08:00] VITALS: BP 151/72; PULSE 69; RESP 16; TEMP 98.3; O2SAT 95
[2017-06-14 08:08] LABS: INTERNATIONAL NORMALIZED RATIO 1.5 RATIO; PROTHROMBIN TIME - PATIENT 16.7 SEC (9.8-11.6)
[2017-06-14 08:23] LABS: BICARBONATE 31.3 MEQ/L (21.0-32.0); POTASSIUM 3.9 MEQ/L (3.5-5.1)
[2017-06-14 08:30] VITALS: PULSE 71
[2017-06-14] MEDS: FUROSEMIDE 20 MG TAB PO SCH ×2 (10:50→17:01)
[2017-06-14] MEDS: METOPROLOL TARTRATE 25 MG TAB PO SCH (10:50)
[2017-06-14] MEDS: LEVOFLOXACIN 750 MG TAB PO SCH (10:50)
[2017-06-14] MEDS: DOCUSATE SODIUM 50 MG/SENNA 8.6 MG TAB PO SCH (10:50)
[2017-06-14] MEDS: ENALAPRIL MALEATE 2.5 MG TAB PO SCH (10:50)
[2017-06-14] MEDS: SODIUM CHLORIDE 0.9% FLUSH 10 ML FLUSH IV FLUSH SCH (10:51)
[2017-06-14] MEDS: ASPIRIN EC 325 MG TABEC PO SCH (10:51)
[2017-06-14] MEDS: POTASSIUM CHLORIDE 10 MEQ CONTROLLED RELEASE TAB PO SCH ×2 (10:55→17:01)
[2017-06-14 12:00] VITALS: BP 132/70; PULSE 68; RESP 17; TEMP 97.9; O2SAT 95
[2017-06-14] MEDS ORDERED: ENAL2.5T PO (13:52)
[2017-06-14] MEDS ORDERED: LEVA750T9 PO (13:52)
[2017-06-14] MEDS ORDERED: FURO1TAB62 PO (13:52)
--- NOTE | 2017-06-14 13:53 | HHI.DCPOC ---
Discharge Care Plan Diagnosis: (1) CHF (congestive heart failure) (2) HTN (hypertension) (3) A-fib Goals to Promote Your Health * To prevent worsening of your condition and complications * To maintain your health at the optimal level Directions to Meet Your Goals Take your medications as prescribed Follow your dietary instruction Follow activity as directed Keep your appointments as scheduled Take your immunizations and boosters as scheduled If your symptoms worsen call your PCP, if no PCP go to Urgent Care Center or Emergency Room Smoking is Dangerous to Your Health. Avoid second hand smoke Call the 24-hour hour crisis hotline for domestic abuse at Gregg Mesa MD Jun 14, 2017 13:53
--- NOTE | 2017-06-14 13:55 | HHI.FF ---
Face to Face Verification Diagnosis: (1) CHF (congestive heart failure) (2) A-fib (3) Chronic anticoagulation (4) HTN (hypertension) Physical Therapy Order: Evaluate and Treat, Improve ambulation, Strength and gait training Home Health Nursing Order: Medical education CHF education Wound care and dressing changes Nursing assessment with vital signs I have seen patient Laxmi Cervantes on 06/14/17. My clinical findings support the need for the requested home health care services because: Patient has SOB Deconditioned w/ increased weakness Limited ability to care for self High risk of falls I certify that my clinical findings support that this patient is homebound because: Poor cardiac reserve Gregg Mesa MD Jun 14, 2017 13:55
--- NOTE | 2017-06-14 14:02 | HHI.DS ---
Discharge Summary Admission Date Jun 12, 2017 at 16:14 Discharge Date: Jun 14, 2017 Admitting Diagnosis acute exacerbation CHF (1) CHF (congestive heart failure) ICD Code: I50.9 - Heart failure, unspecified (2) HTN (hypertension) ICD Code: I10 - Essential (primary) hypertension (3) A-fib ICD Code: I48.91 - A-fib Status: Chronic Procedures None Brief History - From Admission History of present illness from the admitting physician This is an 87-year-old female with a PMH of HTN, A. fib on Coumadin, CHF (Echo w/ EF 55-60%) and Hyperlipidemia who was brought to the ER by EMS secondary to SOB. Presented to ER on 06/08/17 for similar complaints, found to have elevated BNP 495 and CXR w/ small bilateral pleural effusions, s/p Lasix in ER and d/c'd home on Lasix, instructed to discontinue HCTZ. Tonight, pt went to lay down to sleep and had severe SOB. No fever, chills or cough. On arrival, BP 191/89, HR 77, O2 sat 95% on RA, Afebrile. BP currently 172/77 HR 86. CBC unremarkable. Chemistry essentially unremarkable. BNP mildly elevated from previous at 614. INR therapeutic at 2.2. CXR with clear lungs. S/p Lasix 20mg IV x1 CBC/BMP: 06/11/17 0840 06/14/17 0657 Significant Findings Laboratory Tests Test 06/13/17 05:29 06/14/17 06:57 Prothrombin Time 20.1 SEC (9.8-11.6) 16.7 SEC (9.8-11.6) Creatinine 1.01 MG/DL (0.50-1.00) Calcium Level 8.4 MG/DL (8.5-10.1) 8.1 MG/DL (8.5-10.1) Potassium Level 3.3 MEQ/L (3.5-5.1) Chloride Level 97 MEQ/L (98-107) Carbon Dioxide Level 35.2 MEQ/L (21.0-32.0) Estimat Glomerular Filtration Rate 52 ML/MIN (>89) 57 ML/MIN (>89) Imaging Last Impressions Myocardial Perfusion Scan Nuc Med 06/11/17 0000 Signed Impressions: Service Date/Time: Sunday, June 11, 2017 15:56 - CONCLUSION: 1. Small to moderate areas of mild stress-induced ischemia in the anterior and lateral hair. 2. 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 3. Mild apical hypokinesia. Normal wall motion otherwise and normal calculated ejection fraction. RISK CATEGORY: Intermediate Pramod Elizabeth MD Chest X-Ray 06/10/17 0306 Signed Impressions: Service Date/Time: Saturday, June 10, 2017 04:02 - CONCLUSION: The cardiac/progress lower remains enlarged and bulbus. Lungs are grossly clear. Guevara Carmona MD PE at Discharge GENERAL: Well-nourished, well-developed pleasant elderly female patient in [facility]. SKIN: Warm and dry. Right groin embolectomy site with mild edema/erythema surrounding the distal portion of the surgical site. HEENT: Normocephalic. Atraumatic.Pupils equal and round. No scleral icterus. Mucous membranes pink and moist. CARDIOVASCULAR: Irregular rate and rhythm. S1, S2 noted. No murmur appreciated. RESPIRATORY: No accessory muscle use. Lungs clear to auscultation today, no crackles. Breath sounds equal bilaterally. NEUROLOGICAL: Awake and alert. No obvious cranial nerve deficits. Motor grossly within normal limits. Normal speech. PSYCHIATRIC: Appropriate mood and affect; insight and judgment normal. Pt update on day of discharge Patient reports she is feeling much better. She ambulated with physical therapy but will need home health and PT. Shortness of breath has improved. No chest pain. Hospital Course 87-year-old female with a PMH of HTN, A. fib on Coumadin, CHF (Echo 03/03/15 w/ EF 55-60%) and Hyperlipidemia who was brought to the ER by EMS secondary to SOB. Presented to ER on 06/08/17 for similar complaints, found to have elevated BNP 495 and CXR w/ small bilateral pleural effusions, s/p Lasix in ER and d/c'd home on Lasix, instructed to discontinue HCTZ. Patient returned in persistent exacerbation of her chronic diastolic heart failure. Evaluation and treatment course detailed below: Acute Exacerbation of Chronic Diastolic CHF: Reviewed EMR, Echo 03/03/15 w/ 55- 60%, Echo 05/19/17 with EF 70-75%. BNP elevated at 614. Patient was treated with IV Lasix 20 mg twice a day. Serial troponins were negative. She was followed by cardiology and underwent heart catheterization which showed nonobstructive CAD. Medical management advised. The patient symptoms significantly improved. She is discharged on a beta mckenna, KATRINA inhibitor, statin, and aspirin. HTN: Uncontrolled on presentation. BP 190's on arrival, likely compounded by SOB. Resumed home medications, added enalapril, blood pressure improved. She is advised to follow up outpatient with her PCP. A-fib: Chronic. Continue Coumadin therapy. Right Groin Surgical Site with Mild Cellulitis: outpatient wound culture done by PCP Dr. Ybarra 06/10 with heavy growth pseudomonas (report with sensitivities in chart). Repeated wound culture. Start on Levaquin 750mg daily. Patient to continue Levaquin outpatient for another 7 days. She is advised to follow-up with her surgeon as previously scheduled. Pt Condition on Discharge: Good Discharge Disposition: Disch w/ Home Health Serv Discharge Time: > 30 minutes Discharge Instructions DIET: Follow Instructions for: Heart Healthy Diet Activities you can perform: Regular-No Restrictions Follow up Referrals: PCP Follow-up New Medications: Enalapril (Enalapril) 2.5 Mg Tab 2.5 MG PO DAILY, #30 TAB Levofloxacin (Levaquin) 750 Mg Tablet 750 MG PO DAILY, #7 TAB Changed Medications: Furosemide (Lasix) 20 Mg Tab 20 MG PO BID, #60 TAB 0 Refills (Changed from: DAILY; 5) Continued Medications: Alendronate (Fosamax) 70 Mg Tab 70 MG PO Q7D for Osteoporosis Treatment, #4 TAB [address] (Aspirin EC) 325 Mg Tabdr 325 MG PO DAILY for PAD for 30 Days, TAB Docusate Sodium (Colace) 100 Mg Capsule 100 MG PO HS for Constipation Ferrous Sulfate (Ferrous Sulfate) 325 Mg (65 Mg Iron) Tablet 325 MG PO TID for Nutritional Supplement, #90 TAB 0 Refills Levothyroxine (Levoxyl) 100 Mcg Tab 100 MCG PO DAILY for Thyroid, #30 TAB 0 Refills Lovastatin (Lovastatin) 20 Mg Tab 20 MG PO HS for Cholesterol Management, #30 TAB 0 Refills Metoprolol Tartrate (Metoprolol Tartrate) 25 Mg Tab 25 MG PO Q12HR for afib for 30 Days, TAB Ondansetron (Zofran) 4 Mg Tab 4 MG PO Q6HR PRN for NAUSEA OR VOMITING, TAB 0 Refills Oxycodone-Acetaminophen (Oxycodone-Acetaminophen) 10-325 mg Tab 1 TAB PO Q6HR PRN for PAIN SCALE 6 TO 10, #25 TAB 0 Refills Pantoprazole (Pantoprazole) 40 Mg Tab 40 MG PO HS for GIpro for 30 Days, TAB Potassium Chloride ER (Potassium Chloride ER) 20 Meq Tab 20 MEQ PO DAILY for Electrolyte Replacement, #5 TAB 0 Refills Probiotic Product (Diff-Stat) 1 Cap Cap 1 CAP PO QID for 10 Days Warfarin (Coumadin) 4 Mg Tab 4 MG PO DAILY for Prevent Blood Clot, #30 TAB 0 Refills Discontinued Medications: Cephalexin (Keflex) 500 Mg Cap 500 MG PO Q8H for Infection for 14 Days, #30 CAP 0 Refills Gregg Mesa MD Jun 14, 2017 14:02
[2017-06-14 16:00] VITALS: BP 136/75; PULSE 61; RESP 17; TEMP 98.1; O2SAT 97
[2017-06-14] MEDS: WARFARIN SOD 4 MG TAB PO SCH (16:59)
== END 2017-06-14 18:33 | disposition home health service (06) | DRG 287 ==
LOC: NEPC 01:53 → NEDA 05:09 → NEPHCDU 06:20 → NEPGCP 18:06 → OBSVTOIN 06-12 16:14 → HCIS 06-13 11:21 → N04A 06-13 15:46
PROVIDERS: ADMIT Family Medicine; ATTEND Family Medicine
PROC: B2111ZZ Fluoroscopy of Multiple Coronary Arteries using Low Osmolar Contrast (ICD-10-PCS; 2017-06-13)
PROC: B2151ZZ Fluoroscopy of Left Heart using Low Osmolar Contrast (ICD-10-PCS; 2017-06-13)
PROC: 4A023N7 Measurement of Cardiac Sampling and Pressure, Left Heart, Percutaneous Approach (ICD-10-PCS; principal; 2017-06-13 08:30)
DX: I11.0 Hypertensive heart disease with heart failure (principal); I42.9 Cardiomyopathy, unspecified; I48.2 Chronic atrial fibrillation; T81.4XXA Infection following a procedure, initial encounter; L03.314 Cellulitis of groin; I50.33 Acute on chronic diastolic (congestive) heart failure; E78.5 Hyperlipidemia, unspecified; E03.9 Hypothyroidism, unspecified; I25.10 Atherosclerotic heart disease of native coronary artery without angina pectoris; Z79.01 Long term (current) use of anticoagulants; Z96.641 Presence of right artificial hip joint; M19.90 Unspecified osteoarthritis, unspecified site; Y84.8 Other medical procedures as the cause of abnormal reaction of the patient, or of later complication, without mention of misadventure at the time of the procedure; B96.5 Pseudomonas (aeruginosa) (mallei) (pseudomallei) as the cause of diseases classified elsewhere
CPT/HCPCS: 71010; 78452; 80048; 80053; 82550; 83880; 84439; 84443; 84484; 85025; 85610; 85730; 87070; 87077; 87186; 87205; 93005; 93017; 93458; 94620; 96374; 96375; 96376; A9502; C1769; C1893; G0378; J1644; J1940; J2250; J2785; J3010; Q9967

== ENCOUNTER 2017-10-08 00:38 | Inpatient (IN) | payer OTHER, MEDICARE ==
[~2017-10-08] VITALS: Ht 160 cm; Wt 65.0 kg
[~2017-10-08 00:38] MED LIST changes: -CEPH-460 PO; -COLA100C PO; +COLA100C5 PO; +ENAL2.5T PO; +FERR325T18 PO; -FERR325T8 PO; +LEVA750T9 PO
[2017-10-08 00:44] VITALS: BP 188/90; PULSE 100; RESP 20; TEMP 96.7; O2SAT 98
[2017-10-08] MEDS ORDERED: OXYMETAZOLINE HCL 0.05% 15 ML NASAL SPRAY NASAL ONE (01:30)
[2017-10-08 02:19] LABS: AUTOMATED NEUTROPHIL # 6.4 TH/MM3 (1.8-7.7); BASOPHIL # 0.1 TH/MM3 (0-0.2); BASOPHIL % 1.3 % (0.0-2.0); EOSINOPHIL # 0.3 TH/MM3 (0-0.4); EOSINOPHIL % 3.6 % (0.0-4.0); HEMATOCRIT 39.5 % (35.0-46.0); HEMOGLOBIN 12.8 GM/DL (11.6-15.3); LYMPH % 18.6 % (9.0-44.0); LYMPHOCYTE # 1.8 TH/MM3 (1.0-4.8); MEAN CELL VOLUME 91.3 FL (80.0-100.0); MEAN CORPUSCULAR HEMOGLOBIN 29.7 PG (27.0-34.0); MEAN CORPUSCULAR HGB CONC 32.5 % (32.0-36.0); MONO % 10.4 % (0.0-8.0); NEUT % 66.1 % (16.0-70.0); PLATELET COUNT 263 TH/MM3 (150-450); RED BLOOD COUNT 4.32 MIL/MM3 (4.00-5.30); WHITE BLOOD COUNT 9.7 TH/MM3 (4.0-11.0)
--- NOTE | 2017-10-08 02:34 | PD ---
HPI Chief Complaint: General Weakness Time Seen by Provider: 01:08 Travel History International Travel<30 days: No Contact w/Intl Traveler<30days: No Traveled to known affect area: No History of Present Illness HPI Send 87 year-old woman who presents to the emergency department complaining of generalized weakness and lethargy over the past 3-4 days. She was treated for urinary tract infection about 12 days ago and completed Macrobid. She is saw her primary doctor was placed on a new medicine as well. She is a history of A. fib and is on warfarin for anticoagulation. She describes shaking, as well as generalized weakness and lethargy. No other associated symptoms. No other recent illness or injury. No other complaints. Of note patient started getting some epistaxis on arrival to the ED. No epistaxis before this. History Past Medical History Narrative Medical CHF/cardiomyopathy A. fib, history of anticoagulation warfarin Hypertension Hypothyroidism CAD Tetanus Vaccination: < 5 Years Influenza Vaccination: Yes LMP: menapause Social History Alcohol Use: Yes (rare) Tobacco Use: No Allergies-Medications (Allergen,Severity, Reaction): Coded Allergies: No Known Allergies (Verified Adverse Reaction, Unknown, 10/08/17) Reported Meds & Prescriptions Reported Meds & Active Scripts Active Enalapril (Enalapril Maleate) 2.5 Mg Tab 2.5 Mg PO DAILY Levaquin (Levofloxacin) 750 Mg Tablet 750 Mg PO DAILY Lasix (Furosemide) 20 Mg Tab 20 Mg PO BID Potassium Chloride ER (Potassium Chloride) 20 Meq Tab 20 Meq PO DAILY Pantoprazole (Pantoprazole Sodium) 40 Mg Tab 40 Mg PO HS 30 Days Oxycodone-Acetaminophen 10-325 mg Tab 1 Tab PO Q6HR PRN Metoprolol Tartrate 25 Mg Tab 25 Mg PO Q12HR 30 Days Aspirin EC (Aspirin) 325 Mg Tabdr 325 Mg PO DAILY 30 Days Reported Zofran (Ondansetron HCl) 4 Mg Tab 4 Mg PO Q6HR PRN Diff-Stat (Probiotic Product) 1 Cap Cap 1 Cap PO QID 10 Days Ferrous Sulfate 325 Mg (65 Mg Iron) Tablet 325 Mg PO TID Colace (Docusate Sodium) 100 Mg Capsule 100 Mg PO HS Coumadin (Warfarin) 4 Mg Tab 4 Mg PO DAILY Lovastatin 20 Mg Tab 20 Mg PO HS Levoxyl (Levothyroxine Sodium) 100 Mcg Tab 100 Mcg PO DAILY Fosamax (Alendronate Sodium) 70 Mg Tab 70 Mg PO Q7D Review of Systems Except as stated in HPI: all other systems reviewed are Neg Physical Exam Narrative GENERAL: Well-appearing 87 year-old woman, no acute distress. SKIN: Focused skin assessment warm/dry. HEAD: Atraumatic. Normocephalic. EYES: Pupils equal and round. No scleral icterus. No injection or drainage. ENT: No nasal bleeding or discharge. Mucous membranes pink and moist. Some bleeding. NECK: Trachea midline. No JVD. CARDIOVASCULAR: Heart rates irregular. No murmurs. Bilaterally. GASTROINTESTINAL: Abdomen soft, non-tender, nondistended. Hepatic and splenic margins not palpable. MUSCULOSKELETAL: No obvious deformities. No clubbing. No cyanosis. No edema. NEUROLOGICAL: Awake and alert. No obvious cranial nerve deficits. Motor grossly within normal limits. Normal speech. PSYCHIATRIC: Appropriate mood and affect; insight and judgment normal. Data Data Last Documented VS Vital Signs Date Time Temp Pulse Resp B/P (MAP) Pulse Ox O2 Delivery O2 Flow Rate FiO2 10/08/17 00:44 96.7 100 20 188/90 (122) 98 Room Air Orders Orders Complete Blood Count With Diff (10/08/17 01:20) Comprehensive Metabolic Panel (10/08/17 01:20) Urinalysis - C+S If Indicated (10/08/17 01:20) Thyroid Stimulating Hormone (10/08/17 01:20) Troponin I (10/08/17 01:20) Electrocardiogram (10/08/17 ) Iv Access Insert/Monitor (10/08/17 01:20) Oxymetazoline 0.05% [place] (Afrin 0.0 (10/08/17 01:30) Act Partial Throm Time (Ptt) (10/08/17 01:20) Prothrombin Time / Inr (Pt) (10/08/17 01:20) Consult Ent (10/08/17 ) Admit Order (Ed Use Only) (10/08/17 ) Vital Signs (Adult) Q4H (10/08/17 04:45) Diet Npo (10/08/17 Breakfast) Activity Bed Rest (10/08/17 04:45) Notify Dr: Other (10/08/17 04:45) Labs Laboratory Tests Test 10/08/17 01:10/08/17 01:35 Urine Color YELLOW Urine Turbidity CLEAR Urine pH 6.0 Urine Specific [place] 1.020 Urine Protein 300 mg/dL Urine Glucose (UA) NEG mg/dL Urine Ketones NEG mg/dL Urine Occult Blood MOD Urine Nitrite NEG Urine Bilirubin NEG Urine Urobilinogen LESS THAN 2.0 MG/DL Urine Leukocyte Esterase NEG Urine RBC 7 /hpf Urine WBC 4 /hpf Urine Squamous Epithelial Cells <1 /hpf Urine Hyaline Casts 4 /lpf Urine Mucus FEW /lpf Microscopic Urinalysis Comment CULT NOT INDICATED White Blood Count 9.7 TH/MM3 Red Blood Count 4.32 MIL/MM3 Hemoglobin 12.8 GM/DL Hematocrit 39.5 % Mean Corpuscular Volume 91.3 FL Mean Corpuscular Hemoglobin 29.7 PG Mean Corpuscular Hemoglobin Concent 32.5 % Red Cell Distribution Width 14.0 % Platelet Count 263 TH/MM3 Mean Platelet Volume 8.0 FL Neutrophils (%) (Auto) 66.1 % Lymphocytes (%) (Auto) 18.6 % Monocytes (%) (Auto) 10.4 % Eosinophils (%) (Auto) 3.6 % Basophils (%) (Auto) 1.3 % Neutrophils # (Auto) 6.4 TH/MM3 Lymphocytes # (Auto) 1.8 TH/MM3 Monocytes # (Auto) 1.0 TH/MM3 Eosinophils # (Auto) 0.3 TH/MM3 Basophils # (Auto) 0.1 TH/MM3 CBC Comment DIFF FINAL Differential Comment Prothrombin Time 21.3 SEC Prothromb Time International Ratio 2.1 RATIO Activated Partial Thromboplast Time 30.7 SEC Blood Urea Nitrogen 17 MG/DL Creatinine 0.78 MG/DL Random Glucose 130 MG/DL Total Protein 7.2 GM/DL Albumin 3.3 GM/DL Calcium Level 8.8 MG/DL Alkaline Phosphatase 68 U/L Aspartate Amino Transf (AST/SGOT) 18 U/L Alanine Aminotransferase (ALT/SGPT) 20 U/L Total Bilirubin 0.2 MG/DL Sodium Level 141 MEQ/L Potassium Level 4.0 MEQ/L Chloride Level 105 MEQ/L Carbon Dioxide Level 28.7 MEQ/L Anion Gap 7 MEQ/L Estimat Glomerular Filtration Rate 70 ML/MIN Troponin I 0.02 NG/ML Thyroid Stimulating Hormone 3rd Gen 9.050 uIU/ML [facility] Medical Decision Making Medical Screen Exam Complete: Yes Emergency Medical Condition: Yes Interpretation(s) My review of EKG: A. fib at a rate of 96, normal axis, normal intervals, anteroseptal Q waves, no definite evidence of acute ischemia. LABS: CBC is unremarkable. CMP is unremarkable. TSH old will bit elevated at 9 INR 2.1 UA with some hematuria Differential Diagnosis Weakness, anemia, infection, electrolyte abnormality, thyroid disease, other Narrative Course Medical decision making INITIAL: 87 year-old woman with generalized weakness for several days, being treated for UTI. On warfarin. No symptoms of GI bleed. We'll check labs, EKG , troponin, reassess. FINAL: Labs remarkable only for mildly elevated TSH. Despite this, patient had persistent epistaxis since arriving. Initial complaint was weakness for the past 3 days. She had either some hematuria or hematochezia several days ago. She states that she had some blood in her mouth this morning but hasn't really noticed any epistaxis. We initially packed the left knee are which seems to be the source of bleeding with the balloon. This was unsuccessful and it was replaced with a gauze sponge. We attempted to place a posterior packing but the patient didn't tolerated. She still persistent bleeding with packed he other narrative with some improvement but still which are clean bleeding down the throat. 4 hours and total worse when trying to control this bleeding. I did not see definite anterior source of bleeding that would be amenable to cautery. INR is 2.1. We'll hold Coumadin. We'll plan on admission to the hospital, ENT consultation. Diagnosis Primary Impression: Epistaxis, recurrent Admitting Information Admitting Physician Requests: Guevara Cunningham MD Oct 08, 2017 02:34
[2017-10-08 02:41] LABS: INTERNATIONAL NORMALIZED RATIO 2.1 RATIO; PROTHROMBIN TIME - PATIENT 21.3 SEC (9.8-11.6)
[2017-10-08 02:45] LABS: BILIRUBIN, URINE NEG (NEG); BLOOD, URINE MOD (NEG); GLUCOSE,URINE NEG (NEG); HYALINE CAST, URINE 4 /lpf (RARE); KETONE, URINE NEG (NEG); MUCUS URINE FEW /lpf (OCC); NITRITE,URINE NEG (NEG); SQUAMOUS EPITHELIAL CELL URINE <1 /hpf (0-5); URINE COLOR YELLOW (YELLW/STRAW); URINE LEUKOCYTE ESTERASE NEG (NEG)
[2017-10-08 02:51] LABS: ALBUMIN 3.3 GM/DL (3.4-5.0); AST (GOT) 18 U/L (15-37); BICARBONATE 28.7 MEQ/L (21.0-32.0); BLOOD UREA NITROGEN 17 MG/DL (7-18); CALCIUM 8.8 MG/DL (8.5-10.1); CHLORIDE 105 MEQ/L (98-107); CREATININE 0.78 MG/DL (0.50-1.00); GLOMERULAR FILTRATION RATE 70 ML/MIN (>89); GLUCOSE,RANDOM 130 MG/DL (74-106); SODIUM (NA) 141 MEQ/L (136-145)
[2017-10-08 02:59] LABS: ALKALINE PHOSPHATASE 68 U/L (45-117); ALT (GPT) 20 U/L (10-53); TOTAL BILIRUBIN ADULT 0.2 MG/DL (0.2-1.0); TOTAL PROTEIN 7.2 GM/DL (6.4-8.2); TROPONIN I 0.02 NG/ML (0.02-0.05)
[2017-10-08] MEDS ORDERED: SODIUM CHLORIDE 0.9% FLUSH 10 ML FLUSH IV FLUSH PRN (05:15)
[2017-10-08] MEDS ORDERED: ONDANSETRON HCL 4 MG/2 ML VIAL IVP PRN (05:15)
[2017-10-08] MEDS ORDERED: SENNOSIDES 8.6 MG TAB PO PRN (05:15)
[2017-10-08] MEDS ORDERED: BISACODYL 10 MG SUPP RECTAL PRN (05:15)
[2017-10-08] MEDS ORDERED: MAGNESIUM HYDROXIDE SUSP 30 ML CUP PO PRN (05:15)
[2017-10-08] MEDS ORDERED: ACETAMINOPHEN 325 MG TAB PO PRN (05:15)
[2017-10-08] MEDS ORDERED: NALOXONE HCL 0.4 MG/ML AMP IV PUSH PRN (05:15)
[2017-10-08] MEDS ORDERED: LACTULOSE SYRUP 20 GM/30 ML CUP PO PRN (05:15)
[2017-10-08] MEDS: SODIUM CHLOR 0.9% 1000 ML INJ 1,000 ML IV SCH ×2 (05:17→17:54)
[2017-10-08 05:23] VITALS: BP 128/101; PULSE 95; RESP 16; O2SAT 96
[2017-10-08] MEDS ORDERED: TRANEXAMIC ACID INJ 1,000 MG in SODIUM CHLORIDE 0.9% INJ 100 ML IV ONE (06:00)
[2017-10-08] MEDS ORDERED: MORPHINE SULFATE 8 MG/ML INJ ONE (06:22)
[2017-10-08] MEDS ORDERED: MORPHINE SULFATE 4 MG/ML INJ IV PUSH ONE (06:30)
[2017-10-08] MEDS: SODIUM CHLORIDE 0.9% FLUSH 10 ML FLUSH IV FLUSH SCH ×2 (06:45→21:58)
[2017-10-08 08:46] VITALS: BP 163/80; PULSE 98; RESP 20; TEMP 97.9; O2SAT 98
[2017-10-08] MEDS: DOCUSATE SODIUM 50 MG/SENNA 8.6 MG TAB PO SCH ×2 (09:00→21:58)
[2017-10-08] MEDS ORDERED: LORazepam 0.5 MG TAB PO PRN (10:45)
[2017-10-08] MEDS: ENALAPRIL MALEATE 2.5 MG TAB PO SCH (11:45)
[2017-10-08] MEDS ORDERED: GELATIN 12 MM/7 MM FOAM ONE (12:01)
[2017-10-08] MEDS ORDERED: THROMBIN (TOPICAL) 5,000 UNIT VIAL ONE ×2 (12:01→12:46)
--- NOTE | 2017-10-08 12:02 | HHI.HP ---
HPI [facility] Physician Paco Ybarra Do, MD Admission Diagnosis Epistaxis Diagnoses: (1) Generalized weakness Diagnosis: Principal (2) Epistaxis, recurrent Diagnosis: Principal (3) Afib Diagnosis: Secondary (4) Chronic anticoagulation Diagnosis: Principal (5) Hypertension Diagnosis: Secondary Chief Complaint: Generalized weakness Epistaxis Travel History International Travel<30 Days: No Contact w/Intl Traveler <30 Da: No Traveled to Known Affected Are: No History of Present Illness Written by Pinky Livingston, acting as scribe for Dr. Mesa on 10/08/17 at 11: 40. Ms. Cervantes is an 87-year-old female patient with a known medical history of chronic atrial fibrillation on Coumadin therapy, hypertension and CHF who presented to the ED with complaints of generalized weakness and epistaxis. Patient states that over the past few days she has been feeling "faint" with overall decreased energy with intermittent dizziness. She denies any recent fever, chills, headache, chest pain, abdominal pain, nausea, vomiting or diarrhea. Does admit to a recent UTI 2 weeks ago and was treated with Macrobid. As patient was sitting in the ED she developed epistaxis from bilateral nares with current continued bleeding. The ED physician attempted balloon placement in her left nare as well as posterior packing without success. Also tranexamic acid was given. Dr. Graham has been called and plan is to take patient to OR. PCP is Dr. Ybarra. Review of Systems Constitutional: COMPLAINS OF: Fatigue, DENIES: Fever, Chills Eyes: DENIES: Blurred vision Ears, nose, mouth, throat: COMPLAINS OF: Epistaxis Respiratory: COMPLAINS OF: Cough Cardiovascular: DENIES: Chest pain Gastrointestinal: DENIES: Abdominal pain, Black stools, Nausea, Vomiting Except as stated in HPI: all other systems reviewed are Neg Past Family Social History Past Medical History Atrial fibrillation on Coumadin Hypertension Hyperlipidemia CAD CHF Cardiomyopathy Hypothyroidism History of DVT in right lower extremity. Past Surgical History Bilateral Cataract Surgery, Right Hip Replacement, RLE Arterial Embolectomy Reported Medications Reported Meds & Active Scripts Active Enalapril (Enalapril Maleate) 2.5 Mg Tab 2.5 Mg PO DAILY Lasix (Furosemide) 20 Mg Tab 20 Mg PO BID Potassium Chloride ER (Potassium Chloride) 20 Meq Tab 20 Meq PO DAILY Pantoprazole (Pantoprazole Sodium) 40 Mg Tab 40 Mg PO HS 30 Days Metoprolol Tartrate 25 Mg Tab 25 Mg PO Q12HR 30 Days Aspirin EC (Aspirin) 325 Mg Tabdr 325 Mg PO DAILY 30 Days Reported Diff-Stat (Probiotic Product) 1 Cap Cap 1 Cap PO QID 10 Days Ferrous Sulfate 325 Mg (65 Mg Iron) Tablet 325 Mg PO TID Colace (Docusate Sodium) 100 Mg Capsule 100 Mg PO HS Coumadin (Warfarin) 4 Mg Tab 4 Mg PO DAILY Lovastatin 20 Mg Tab 20 Mg PO HS Levoxyl (Levothyroxine Sodium) 100 Mcg Tab 100 Mcg PO DAILY Fosamax (Alendronate Sodium) 70 Mg Tab 70 Mg PO Q7D Allergies: Coded Allergies: No Known Allergies (Verified Allergy, Unknown, 10/08/17) Active Ordered Medications Current Medications Medications (Trade) Dose Ordered Sig/Dipti Route Start Time Stop Time Status Last Admin Sodium Chloride 1,000 ml @ 75 mls/hr [id number] IV 10/08/17 05:04 10/08/17 05:17 (NS Flush) 2 ml UNSCH PRN IV FLUSH 10/08/17 05:15 (NS Flush) 2 ml BID IV FLUSH 10/08/17 09:00 (Tylenol) 650 mg Q4H PRN PO 10/08/17 05:15 (Zofran Inj) 4 mg Q6H PRN IVP 10/08/17 05:15 (Narcan Inj) 0.4 mg UNSCH PRN IV PUSH 10/08/17 05:15 ([place]-Colace) 1 tab BID PO 10/08/17 09:00 (Milk Of Magnesia Liq) 30 ml Q12H PRN PO 10/08/17 05:15 (Senokot) 17.2 mg Q12H PRN PO 10/08/17 05:15 (Dulcolax Supp) 10 mg DAILY PRN RECTAL 10/08/17 05:15 (Lactulose Liq) 30 ml DAILY PRN PO 10/08/17 05:15 (Ativan) 0.5 mg Q6HR PRN PO 10/08/17 10:45 Family History No history of DM or CAD. Social History Denies any current tobacco use. Does admit to occasional alcohol use. Denies any illicit drug use. Physical Exam Vital Signs Vital Signs Date Time Temp Pulse Resp B/P (MAP) Pulse Ox O2 Delivery O2 Flow Rate FiO2 10/08/17 08:46 97.9 98 20 163/80 (107) 98 10/08/17 05:23 95 16 128/101 (110) 96 Room Air 10/08/17 00:44 96.7 100 20 188/90 (122) 98 Room Air Physical Exam GENERAL: Very pleasant elderly white female lying in bed with bilateral nare epistaxis. SKIN: No rashes, ecchymoses or lesions. Cool and dry. HEENT: PERRLA, EOMI. No scleral icterus or conjunctival pallor. No lid lag or facial droop. CARDIOVASCULAR: Regular rate and rhythm. No obvious murmurs to auscultation. No chest tenderness to palpation. RESPIRATORY: Occasional rhonchi, no wheezing. Clear to auscultation. Breath sounds equal bilaterally. GASTROINTESTINAL: Abdomen soft, non-tender, nondistended. BS normal. MUSCULOSKELETAL: Extremities without clubbing, cyanosis, no edema. No obvious deformities. NEUROLOGICAL: Awake, alert and oriented x4. No focal neurologic deficits. Moving both upper and lower extremities spontaneously. Laboratory Laboratory Tests Test 10/08/17 01:05 10/08/17 01:35 Urine Color YELLOW Urine Turbidity CLEAR Urine pH 6.0 Urine Specific [place] 1.020 Urine Protein 300 Urine Glucose (UA) NEG Urine Ketones NEG Urine Occult Blood MOD Urine Nitrite NEG Urine Bilirubin NEG Urine Urobilinogen LESS THAN 2.0 Urine Leukocyte Esterase NEG Urine RBC 7 Urine WBC 4 Urine Squamous Epithelial Cells <1 Urine Hyaline Casts 4 Urine Mucus FEW Microscopic Urinalysis Comment CULT NOT INDICATED White Blood Count 9.7 Red Blood Count 4.32 Hemoglobin 12.8 Hematocrit 39.5 Mean Corpuscular Volume 91.3 Mean Corpuscular Hemoglobin 29.7 Mean Corpuscular Hemoglobin Concent 32.5 Red Cell Distribution Width 14.0 Platelet Count 263 Mean Platelet Volume 8.0 Neutrophils (%) (Auto) 66.1 Lymphocytes (%) (Auto) 18.6 Monocytes (%) (Auto) 10.4 Eosinophils (%) (Auto) 3.6 Basophils (%) (Auto) 1.3 Neutrophils # (Auto) 6.4 Lymphocytes # (Auto) 1.8 Monocytes # (Auto) 1.0 Eosinophils # (Auto) 0.3 Basophils # (Auto) 0.1 CBC Comment DIFF FINAL Differential Comment Prothrombin Time 21.3 Prothromb Time International Ratio 2.1 Activated Partial Thromboplast Time 30.7 Blood Urea Nitrogen 17 Creatinine 0.78 Random Glucose 130 Total Protein 7.2 Albumin 3.3 Calcium Level 8.8 Alkaline Phosphatase 68 Aspartate Amino Transf (AST/SGOT) 18 Alanine Aminotransferase (ALT/SGPT) 20 Total Bilirubin 0.2 Sodium Level 141 Potassium Level 4.0 Chloride Level 105 Carbon Dioxide Level 28.7 Anion Gap 7 Estimat Glomerular Filtration Rate 70 Troponin I 0.02 Thyroid Stimulating Hormone 3rd Gen 9.050 Result Diagram: 10/08/1713410/08/17134 Septic Shock Reassessment Septic shock perfusion: reassessment completed Caprini VTE Risk Assessment Caprini VTE Risk Assessment: Mod/High Risk (score >= 2) Caprini Risk Assessment Model Point Value = 1 Point Value = 2 Point Value = 3 Point Value = 5 Age 41-60 Minor surgery BMI > 25 kg/m2 Swollen legs Varicose veins or History of unexplained or recurrent spontaneous Oral contraceptives or hormone replacement Sepsis (< 1 month) Serious lung disease, including pneumonia (< 1 month) Abnormal pulmonary function Acute myocardial infarction Congestive heart failure (< 1 month) History of inflammatory bowel disease Medical patient at bed rest Age 61-74 Arthroscopic surgery Major open surgery (> 45 min) Laparoscopic surgery (> 45 min) Malignancy Confined to bed (> 72 hours) Immobilizing plaster cast Central venous access Age >= 75 History of VTE Family history of VTE Factor V Leiden Prothrombin [id number] Lupus anticoagulant Anticardiolipin antibodies Elevated serum homocysteine Heparin-induced thrombocytopenia Other congenital or acquired thrombophilia Stroke (< 1 month) Elective arthroplasty Hip, pelvis, or leg fracture Acute spinal cord injury (< 1 month) Prophylaxis Regimen Total Risk Factor Score Risk Level Prophylaxis Regimen 0-1 Low Early ambulation 2 Moderate Order ONE of the following: *Sequential Compression Device (SCD) *Heparin 5000 units SQ BID 3-4 Higher Order ONE of the following medications: *Heparin 5000 units SQ TID *Enoxaparin/Lovenox 40 mg SQ daily (WT < 150 kg, CrCl > 30 mL/min) *Enoxaparin/Lovenox 30 mg SQ daily (WT < 150 kg, CrCl > 10-29 mL/min) *Enoxaparin/Lovenox 30 mg SQ BID (WT < 150 kg, CrCl > 30 mL/min) AND/OR *Sequential Compression Device (SCD) 5 or more Highest Order ONE of the following medications: *Heparin 5000 units SQ TID (Preferred with Epidurals) *Enoxaparin/Lovenox 40 mg SQ daily (WT < 150 kg, CrCl > 30 mL/min) *Enoxaparin/Lovenox 30 mg SQ daily (WT < 150 kg, CrCl > 10-29 mL/min) *Enoxaparin/Lovenox 30 mg SQ BID (WT < 150 kg, CrCl > 30 mL/min) AND *Sequential Compression Device (SCD) Assessment and Plan Assessment and Plan Bilateral epistaxis Currently has uncontrolled bleeding from nares Status post tranexamic acid x 1 in ED. Ordered for Phytonadione 10 mg PO x [address] Graham who is on his way to see patient with plans to take her to OR for packing. Will follow CBC. Hemoglobin stable on presentation. Generalized weakness TSH elevated. Will order free T3 and T4. Follow. Continue home medications at this time. CBC reviewed which is essentially unremarkable. UA reviewed and negative. Chronic diastolic heart failure: Stable at this time. Monitor intake and output. Resume home medications. Follow clinically. Hypertension, chronic: Elevated on presentation, systolic BPs in 160's. Resume home medications. Continue to monitor BP trend. Atrial fibrillation, chronic: Continue cardiac telemetry. Hold Coumadin for active bleeding. INR is therapeutic 2.4, will give Vitamin K as above to control bleeding. Hypothyroidism, chronic: Continue home medication. TSH elevated. Follow free T3 and free T4. DVT Prophylaxis: SCDs. Will hold Coumadin for active bleeding and plan for OR. This note was transcribed by ricoibchristine [Pinky Livingston]. I, Dr. Gregg Mesa personally performed the history, physical exam, and medical decision making; and confirmed the accuracy of the information in the transcribed note. Authenticated by Dr. Gregg Mesa on 10/08/17 at 1145. Pinky Livingston Oct 08, 2017 12:02 Gregg Mesa MD Oct 08, 2017 14:55
[2017-10-08 12:46] LABS: AUTOMATED NEUTROPHIL # 9.7 TH/MM3 (1.8-7.7); BASOPHIL % 0.4 % (0.0-2.0); EOSINOPHIL % 0.2 % (0.0-4.0); HEMATOCRIT 37.7 % (35.0-46.0); HEMOGLOBIN 12.6 GM/DL (11.6-15.3); LYMPH % 9.1 % (9.0-44.0); LYMPHOCYTE # 1.1 TH/MM3 (1.0-4.8); MEAN CELL VOLUME 92.5 FL (80.0-100.0); MEAN CORPUSCULAR HEMOGLOBIN 30.8 PG (27.0-34.0); MEAN CORPUSCULAR HGB CONC 33.3 % (32.0-36.0); MEAN PLATELET VOLUME 8.1 FL (7.0-11.0); MONO % 8.6 % (0.0-8.0); NEUT % 81.7 % (16.0-70.0); PLATELET COUNT 273 TH/MM3 (150-450); RED BLOOD COUNT 4.07 MIL/MM3 (4.00-5.30); RED CELL DISTRIBUTION WIDTH 13.9 % (11.6-17.2); WHITE BLOOD COUNT 11.8 TH/MM3 (4.0-11.0)
[2017-10-08] MEDS ORDERED: GELFOAM SIZE 100 ONE ×2 (12:46→12:56)
[2017-10-08] MEDS ORDERED: OXYMETAZOLINE HCL 0.05% 15 ML NASAL SPRAY ONE (12:56)
[2017-10-08] MEDS ORDERED: PHYTONADIONE 5 MG TAB PO SCH (13:00)
[2017-10-08] MEDS: FERROUS SULFATE 325 MG (65 MG ELEMENTAL IRON) TAB PO SCH ×2 (13:00→17:54)
--- NOTE | 2017-10-08 13:44 | MB ---
cc: ERIC COLEMAN M.D. DATE OF CONSULTATION: 10/08/2017. REASON FOR CONSULTATION: Bilateral epistaxis. REQUESTING PHYSICIAN: Dr. Posadas. HISTORY OF PRESENT ILLNESS: Laxmi Cervantes is a fairly healthy 87-year-old woman who presented to the emergency room late in the day on October 07 complaining of a few days of weakness and lethargy just before her arrival there, she began bleeding from her nose bilaterally, left side worse than right. 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 Her INR is 2.1. Prior to my arrival, the emergency room staff had obtained control of the bleeding bilaterally by placing a double-lumen anterior-posterior pack in the left nasal vault and a sponge rhino rocket on the right nasal pack. The patient is tolerating the packing very easily. PAST MEDICAL HISTORY: Past medical history is significant for: 1. Congestive heart failure. 2. Atrial fibrillation. 3. Hypertension. 4. Hypothyroidism. 5. Coronary artery disease. SOCIAL HISTORY: She lives with her son. No tobacco, alcohol or drugs. ALLERGIES: NO KNOWN ALLERGIES. MEDICATIONS PRIOR TO ARRIVAL: 1. Enalapril. 2. Levaquin. 3. Lasix. 4. Potassium chloride. 5. Protonix. 6. Oxycodone. 7. Metoprolol. 8. A daily aspirin. 9. Coumadin. PHYSICAL EXAMINATION: GENERAL: On examination, she is alert and cooperative. VITAL SIGNS: Temperature 96.7, pulse 100, respirations 20, blood pressure 188/90, pulse oximetry 98% on room air with her nose packed. HEAD: Normocephalic and atraumatic. ORAL CAVITY: The mucous membranes are pink and moist. There is some clotting blood in her oropharynx but no flowing blood. NECK: No nodes or masses. Trachea is midline. EARS: Normal auricles, ear cans and tympanic membranes. NOSE: Packed bilaterally with good control of epistaxis. PLAN: Discussed these findings and history with the patient and with the emergency room staff. I recommend she be admitted for observation and for 02 supplementation and pulse oximetry while her nose remains packed. Would recommend leaving the packing in place for around 48 hours. I will remove it for her on October 10. MD SHERRIE Echols/AMIE /11:08 AM /1:23 PM
[2017-10-08 14:30] LABS: FREE T3 1.88 PG/ML (2.18-3.98); FREE T4 1.1 NG/DL (0.76-1.46)
[2017-10-08] MEDS ORDERED: PHYTONADIONE 5 MG/SWFI 5 ML ORAL SYR PO SCH (15:30)
[2017-10-08 16:00] VITALS: BP 155/74; PULSE 99; RESP 17; TEMP 96.9; O2SAT 97
[2017-10-08] MEDS: AMPICILLIN/SULBAC 1500 MG/NS 100 ML IV SCH ×4 (17:49→21:59)
[2017-10-08 20:05] VITALS: BP 144/91; PULSE 101; RESP 19; TEMP 97; O2SAT 94
[2017-10-08] MEDS ORDERED: FUROSEMIDE 20 MG TAB PO SCH (21:00)
--- NOTE | 2017-10-08 21:31 | EKG ---
Date Performed: 10/08/2017 Time Performed: 01:27:49 PTAGE: 87 years EKG: ATRIAL FIBRILLATION BORDERLINE RIGHT AXIS DEVIATION ANTEROSEPTAL MYOCARDIAL INFARCTION ABNO RMAL ECG PREVIOUS TRACING : 06/10/2017 02.47 Compared to prior tracing no significant change DOCTOR: Eloina Martinez Interpretating Date/Time 10/08/2017 21:30:08
[2017-10-08] MEDS: DOCUSATE SODIUM 100 MG CAP PO SCH (21:57)
[2017-10-08] MEDS: PRAVASTATIN SOD 20 MG TAB PO SCH (21:58)
[2017-10-08] MEDS: METOPROLOL TARTRATE 25 MG TAB PO SCH (21:58)
[2017-10-08] MEDS: PANTOPRAZOLE SOD 40 MG DELAYED RELEASE TAB PO SCH (21:58)
[2017-10-08 22:01] VITALS: O2SAT 94
[2017-10-09] VITALS (7 sets, daily range): BP systolic 136–165; BP diastolic 64–96; PULSE 74–101; RESP 17–20; TEMP 96.2–97.8; O2SAT 93–97
[2017-10-09 05:48] LABS: AUTOMATED NEUTROPHIL # 8.1 TH/MM3 (1.8-7.7); BASOPHIL % 0.3 % (0.0-2.0); HEMATOCRIT 29.5 % (35.0-46.0); HEMOGLOBIN 9.8 GM/DL (11.6-15.3); LYMPHOCYTE # 1.3 TH/MM3 (1.0-4.8); MEAN CELL VOLUME 91.2 FL (80.0-100.0); MEAN CORPUSCULAR HEMOGLOBIN 30.4 PG (27.0-34.0); MEAN CORPUSCULAR HGB CONC 33.4 % (32.0-36.0); MEAN PLATELET VOLUME 7.6 FL (7.0-11.0); MONO % 7.6 % (0.0-8.0); MONOCYTE # 0.8 TH/MM3 (0-0.9); NEUT % 79.1 % (16.0-70.0); PLATELET COUNT 210 TH/MM3 (150-450); RED BLOOD COUNT 3.23 MIL/MM3 (4.00-5.30); RED CELL DISTRIBUTION WIDTH 13.9 % (11.6-17.2); WHITE BLOOD COUNT 10.2 TH/MM3 (4.0-11.0)
[2017-10-09 05:49] LABS: INTERNATIONAL NORMALIZED RATIO 1.8 RATIO; PROTHROMBIN TIME - PATIENT 18.1 SEC (9.8-11.6)
[2017-10-09 06:13] LABS: BICARBONATE 28.4 MEQ/L (21.0-32.0); CALCIUM 7.9 MG/DL (8.5-10.1); CREATININE 0.64 MG/DL (0.50-1.00)
[2017-10-09] MEDS: LEVOTHYROXINE SODIUM 100 MCG TAB PO SCH (06:21)
[2017-10-09] MEDS: AMPICILLIN/SULBAC 1500 MG/NS 100 ML IV SCH ×6 (06:29→21:15)
[2017-10-09] MEDS: SODIUM CHLOR 0.9% 1000 ML INJ 1,000 ML IV SCH (07:44)
[2017-10-09] MEDS: FERROUS SULFATE 325 MG (65 MG ELEMENTAL IRON) TAB PO SCH ×3 (09:00→17:08)
[2017-10-09] MEDS ORDERED: LEVOTHYROXINE SODIUM 100 MCG TAB PO SCH (09:00)
[2017-10-09] MEDS: DOCUSATE SODIUM 50 MG/SENNA 8.6 MG TAB PO SCH ×2 (10:01→21:15)
[2017-10-09] MEDS: FUROSEMIDE 20 MG TAB PO SCH ×2 (10:02→17:10)
[2017-10-09] MEDS: METOPROLOL TARTRATE 25 MG TAB PO SCH ×2 (10:02→21:14)
[2017-10-09] MEDS: ENALAPRIL MALEATE 2.5 MG TAB PO SCH (10:02)
[2017-10-09] MEDS: POTASSIUM CHLORIDE 20 MEQ CONTROLLED RELEASE TAB PO SCH (10:02)
[2017-10-09] MEDS: SODIUM CHLORIDE 0.9% FLUSH 10 ML FLUSH IV FLUSH SCH ×2 (10:06→21:14)
--- NOTE | 2017-10-09 10:40 | HHI.PR ---
Subjective Remarks Patient seen in follow-up for massive epistaxis. Status post cauterization in the OMR. No further hypoxemia. No bleeding noted per patient. Hemoglobin 9.8 Discussed with Maykel GUO Objective Vitals Vital Signs Date Time Temp Pulse Resp B/P (MAP) Pulse Ox O2 Delivery O2 Flow Rate FiO2 10/09/17 08:00 97.0 97 19 149/80 (103) 96 10/09/17 04:10 96.7 100 20 148/73 (98) 96 10/09/17 00:05 96.9 83 19 150/65 (93) 96 10/08/17 22:01 94 Face Tent 10.00 40 10/08/17 22:01 94 Face Tent 10.00 40 10/08/17 20:05 97.0 101 19 144/91 (108) 94 10/08/17 16:00 96.9 99 17 155/74 (101) 97 10/08/17 14:15 98.1 107 12 133/69 (90) 97 Face Tent 40 10/08/17 14:00 100 12 148/96 (113) 96 Face Tent 40 10/08/17 13:45 108 12 145/66 (92) 95 Face Tent 40 10/08/17 13:30 98.1 103 12 114/67 (83) 98 Simple Mask 7 I/O 10/08/17 10/08/17 10/08/17 10/09/17 10/09/17 10/09/17 07:00 15:00 23:00 07:00 15:00 23:00 Intake Total 110 ml 300 ml 480 ml 240 ml Balance 110 ml 300 ml 480 ml 240 ml Intake Oral 480 ml 240 ml IV Total 110 ml Other 300 ml # Voids 2 2 # Bowel Movements 0 0 Result Diagram: 10/09/1751010/09/17 0511 Objective Remarks GENERAL: This is a well-nourished, well-developed patient, in no apparent distress. CARDIOVASCULAR: Regular rate and rhythm without murmurs, gallops, or rubs. RESPIRATORY: Clear to auscultation. Breath sounds equal bilaterally. No wheezes , rales, or rhonchi. GASTROINTESTINAL: Abdomen soft, non-tender, nondistended. Normal active bowel sounds MUSCULOSKELETAL: Extremities without clubbing, cyanosis, or edema. NEURO: Alert & Oriented x4 to person, place, time, situation. Moves all ext x4 Procedures Cauterization of posterior nasal bleeding A/P Problem List: (1) Epistaxis, recurrent ICD Code: R04.0 - Epistaxis Status: Acute Plan: Massive and status post cauterization in the OR Now stable Postop IV antibiotics (2) Afib ICD Code: I48.91 - Unspecified atrial fibrillation Status: Acute Plan: Aspirin warfarin held A. fib stable (3) Chronic anticoagulation ICD Code: Z79.01 - Chronic anticoagulation Status: Chronic Plan: Warfarin held due to epistaxis INR 1.8 (4) Hypertension ICD Code: I10 - Essential (primary) hypertension Status: Acute Plan: Controlled on metoprolol and Vasotec, (5) Anemia ICD Code: D64.9 - Anemia, unspecified Plan: Patient with known iron deficiency anemia and now with anemia of acute blood loss Currently stable Continue oral iron Assessment and Plan DC IV fluids DC telemetry Possibly DC continuous pulse oximetry if remains stable Continue to ambulate Discharge Planning Likely home in a.m. DC telemetry Verónica Thomas MD Oct 09, 2017 10:40
--- NOTE | 2017-10-09 12:55 | MP ---
cc: ERIC GRAHAM M.D. DATE OF SURGERY: 10/08/2017 SURGEON: Dr. Eric Graham PREOPERATIVE DIAGNOSIS: Bilateral epistaxis. POSTOPERATIVE DIAGNOSIS: Bilateral epistaxis. OPERATION PERFORMED Bilateral endoscopic control of epistaxis. INDICATION Laxmi Cervantes is an 87-year-old woman on Coumadin for chronic atrial fibrillation and hypercoagulability. She had begun bleeding following arrival to the emergency room where she was seeking help with fatigue and lethargy, initial control was gained in the ER with bilateral packing but she continued to bleed bilaterally around the nasal packs. DESCRIPTION OF OPERATION The patient was taken to OR #8 and placed in the supine position following induction of general anesthesia and intubation. The patient was prepped and draped for surgery. Nasal packing was removed bilaterally. There was a 7.5 cm rapid rhino pack on the left side and a rhino rocket on the right side. Both sides were evacuated of thick clots and mucous as was the nasopharynx done under endoscopic visualization. Inspection of nasal vault showed numerous areas of mucosal trauma on the middle and inferior turbinates, on the right septum and on the rostrum of the sphenoid on the left side. All sides were cauterized using suction Bovie at 35 hat[place]. There was no further bleeding observed. The nose was then packed bilaterally with 5 x 20 millimeter fragments of Gelfoam saturated with 30,000 units of topical thrombin. The nasal vault was filled bilaterally with this preparation. The stomach was then aspirated of approximately 100 mL of dark blood clots and the procedure was terminated. The patient was reversed from anesthesia and taken to recovery in good condition. There no complications. Blood loss was 50 mL. Eric Graham MD Sarah/GRACIA /1:15 PM /12:31 PM
[2017-10-09] MEDS: PRAVASTATIN SOD 20 MG TAB PO SCH (21:14)
[2017-10-09] MEDS: PANTOPRAZOLE SOD 40 MG DELAYED RELEASE TAB PO SCH (21:14)
[2017-10-09] MEDS: DOCUSATE SODIUM 100 MG CAP PO SCH (21:14)
[2017-10-10 04:52] VITALS: BP 162/81; PULSE 94; RESP 18; TEMP 97.3; O2SAT 94
[2017-10-10] MEDS: LEVOTHYROXINE SODIUM 100 MCG TAB PO SCH (06:16)
[2017-10-10] MEDS: AMPICILLIN/SULBAC 1500 MG/NS 100 ML IV SCH ×2 (06:16)
[2017-10-10 08:00] VITALS: BP 152/77; PULSE 90; RESP 17; TEMP 97.8; O2SAT 95
[2017-10-10] MEDS: SODIUM CHLORIDE 0.9% FLUSH 10 ML FLUSH IV FLUSH SCH (09:00)
[2017-10-10] MEDS: DOCUSATE SODIUM 50 MG/SENNA 8.6 MG TAB PO SCH (09:00)
[2017-10-10] MEDS: METOPROLOL TARTRATE 25 MG TAB PO SCH (10:08)
[2017-10-10] MEDS: POTASSIUM CHLORIDE 20 MEQ CONTROLLED RELEASE TAB PO SCH (10:09)
[2017-10-10] MEDS: FERROUS SULFATE 325 MG (65 MG ELEMENTAL IRON) TAB PO SCH (10:09)
[2017-10-10] MEDS: FUROSEMIDE 20 MG TAB PO SCH (10:11)
[2017-10-10] MEDS: ENALAPRIL MALEATE 2.5 MG TAB PO SCH (10:11)
== END 2017-10-10 12:11 | disposition home or self-care (01) | DRG 982 ==
LOC: NEPE 00:38 → NEDA 04:47 → NEPGCP 07:10 → OBSVTOIN 13:25 → N06B 13:55
PROVIDERS: ADMIT Hospitalist; ATTEND Hospitalist
PROC: 0D968ZZ Drainage of Stomach, Via Natural or Artificial Opening Endoscopic (ICD-10-PCS; 2017-10-08)
PROC: 0W3Q8ZZ Control Bleeding in Respiratory Tract, Via Natural or Artificial Opening Endoscopic (ICD-10-PCS; principal; 2017-10-08 12:40)
DX: R04.0 Epistaxis (principal); I50.32 Chronic diastolic (congestive) heart failure; I42.9 Cardiomyopathy, unspecified; D68.32 Hemorrhagic disorder due to extrinsic circulating anticoagulants; I11.0 Hypertensive heart disease with heart failure; D62 Acute posthemorrhagic anemia; T45.515A Adverse effect of anticoagulants, initial encounter; I48.2 Chronic atrial fibrillation; E03.9 Hypothyroidism, unspecified; D50.9 Iron deficiency anemia, unspecified; I25.10 Atherosclerotic heart disease of native coronary artery without angina pectoris; E78.5 Hyperlipidemia, unspecified; Z79.01 Long term (current) use of anticoagulants; Z86.718 Personal history of other venous thrombosis and embolism; Z96.641 Presence of right artificial hip joint
CPT/HCPCS: 80048; 80053; 81001; 84439; 84443; 84481; 84484; 85025; 85610; 85730; 86850; 86900; 86901; 93005; 99285; J0295; J2270; J7030

== ENCOUNTER 2017-12-06 18:37 | Emergency (ER) | payer MEDICARE, OTHER ==
[~2017-12-06 18:37] MED LIST changes: -LEVA750T9 PO; -OXYC1TAB36 PO; -ZOFR4TAB PO
[2017-12-06 18:38] VITALS: BP 205/117; PULSE 90; RESP 18; TEMP 97.8; O2SAT 95
[2017-12-06] MEDS ORDERED: ALEN1TAB48 PO (19:45)
[2017-12-06] MEDS ORDERED: CALC1TAB87 PO (19:45)
[2017-12-06] MEDS ORDERED: FLUT50SP EACH NARE (19:45)
[2017-12-06] MEDS ORDERED: iron tab PO (19:45)
[2017-12-06] MEDS ORDERED: ENAL10TA PO (19:45)
[2017-12-06] MEDS ORDERED: COUM4TAB PO (19:45)
[2017-12-06] MEDS ORDERED: DOCU100C15 PO (19:45)
[2017-12-06] MEDS ORDERED: TRAM50TA PO (19:48)
[2017-12-06] MEDS ORDERED: COUM5TAB PO (19:48)
[2017-12-06] MEDS ORDERED: TIZA2TAB PO (19:48)
--- NOTE | 2017-12-06 19:58 | RADRPT ---
EXAM DATE/TIME: 12/06/2017 19:26 [facility] COMPARISON: CHEST SINGLE AP, June 10, 2017, 4:02. INDICATIONS : Right side chest pain. MEDICAL HISTORY : A-fib. SURGICAL HISTORY : None. ENCOUNTER: Initial ACUITY: 2 weeks PAIN SCORE: 8/10 LOCATION: Right upper chest FINDINGS: There is advanced cardiomegaly. There are atelectatic changes at the left lung base. There minimal bi lateral effusions and diffuse interstitial prominence. These changes are stable compared to a previou s dated 06/10/17. There are post kyphoplasty changes in the upper thoracic spine. The osseous structures otherwise appe ar intact. CONCLUSION: 1. Advanced cardiomegaly and chronic interstitial changes. Stable compared to prior exam. Tim Palomino MD on December 06, 2017 at 19:56 Board Certified Radiologist. This report was verified electronically.
[2017-12-06 20:08] VITALS: BP 222/132; PULSE 90; RESP 20; O2SAT 98
[2017-12-06 20:12] LABS: AUTOMATED NEUTROPHIL # 4.1 TH/MM3 (1.8-7.7); BASOPHIL # 0.1 TH/MM3 (0-0.2); BASOPHIL % 1.5 % (0.0-2.0); EOSINOPHIL # 0.4 TH/MM3 (0-0.4); HEMATOCRIT 38.7 % (35.0-46.0); LYMPH % 27.3 % (9.0-44.0); LYMPHOCYTE # 1.9 TH/MM3 (1.0-4.8); MEAN CELL VOLUME 92.2 FL (80.0-100.0); MEAN CORPUSCULAR HEMOGLOBIN 30.8 PG (27.0-34.0); MEAN CORPUSCULAR HGB CONC 33.4 % (32.0-36.0); MEAN PLATELET VOLUME 7.8 FL (7.0-11.0); MONOCYTE # 0.6 TH/MM3 (0-0.9); NEUT % 58.2 % (16.0-70.0); PLATELET COUNT 243 TH/MM3 (150-450); RED CELL DISTRIBUTION WIDTH 13.4 % (11.6-17.2); WHITE BLOOD COUNT 7.1 TH/MM3 (4.0-11.0)
[2017-12-06 20:24] LABS: BICARBONATE 29.4 MEQ/L (21.0-32.0); BLOOD UREA NITROGEN 20 MG/DL (7-18); CALCIUM 8.7 MG/DL (8.5-10.1); CHLORIDE 103 MEQ/L (98-107); CREATININE 0.78 MG/DL (0.50-1.00); GLOMERULAR FILTRATION RATE 70 ML/MIN (>89); GLUCOSE,RANDOM 110 MG/DL (74-106); SODIUM (NA) 140 MEQ/L (136-145)
[2017-12-06 20:25] LABS: INTERNATIONAL NORMALIZED RATIO 2.6 RATIO; PROTHROMBIN TIME - PATIENT 25.9 SEC (9.8-11.6)
[2017-12-06] MEDS ORDERED: METOPROLOL TARTRATE 25 MG TAB PO ONE (20:30)
[2017-12-06] MEDS ORDERED: ENALAPRIL MALEATE 10 MG TAB PO ONE (20:30)
[2017-12-06 20:34] LABS: ALBUMIN 3.5 GM/DL (3.4-5.0); ALT (GPT) 14 U/L (10-53); AST (GOT) 19 U/L (15-37); DIRECT BILIRUBIN ADULT 0.1 MG/DL (0.0-0.2); TROPONIN I LESS THAN 0.02 NG/ML (0.02-0.05)
[2017-12-06 20:36] LABS: ALKALINE PHOSPHATASE 61 U/L (45-117); INDIRECT BILIRUBIN 0.1 MG/DL (0.0-0.8); TOTAL BILIRUBIN ADULT 0.2 MG/DL (0.2-1.0)
[2017-12-06 21:04] VITALS: BP 200/130; PULSE 74; RESP 18; O2SAT 97
--- NOTE | 2017-12-06 21:17 | PD ---
HPI Chief Complaint: Chest Pain Time Seen by Provider: 19:17 Travel History International Travel<30 days: No Contact w/Intl Traveler<30days: No Traveled to known affect area: No History of Present Illness HPI 87-year-old female that presents to the ED for evaluation of chest pain. Patient states that she has pain in her right shoulder blade. She's had this pain for about one week. 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 Garrison who recommended that she comes here to get a CT scan. She had chest x-ray and EKG done at his office and he was all negative. She had a heart catheter about a year ago which was negative. She does take Coumadin she has a history of DVTs. She denies any urinary or bowel movement issues. Per patient the pain is 8 out of 10 and gets worse with deep breaths. She was given prescription for tramadol for pain with good results. She was told to come here for CT scan to rule out PE. She has no allergies to medication. No other medical issues. States that she takes Coumadin for A. fib. PFSH Past Medical History Hx Anticoagulant Therapy: Yes (Warfarin) Anemia: Yes Arthritis: Yes (osteoporosis) Asthma: No Atrial Fibrillation: Yes Blood Disorders: No Anxiety: No Depression: No Heart Rhythm Problems: Yes (ATRIAL FIBRILLATION) Cancer: No Cardiac Catheterization: No Cardiovascular Problems: Yes High Cholesterol: Yes Chemotherapy: No Chest Pain: No Congestive Heart Failure: Yes COPD: No Cerebrovascular Accident: No Coronary Artery Disease: Yes Diabetes: No Diminished Hearing: No Endocrine: Yes Gastrointestinal Disorders: Yes GERD: No Genitourinary: No Headaches: No Hiatal Hernia: No Heparin Induced Thrombocytopen: No Hypertension: Yes Immune Disorder: No Implanted Vascular Access Dvce: Yes Musculoskeletal: Yes (DJD, compression fx, R hip replacement ) Neurologic: Yes Psychiatric: No Reproductive: No Respiratory: No Immunizations Current: Yes Migraines: No Radiation Therapy: No Seizures: No Sleep Apnea: No Thyroid Disease: Yes (Hypothyroidism ) Past Surgical History Body Medical Devices: MCKAYLA EYE LENS; SCREWS RIGHT HIP, RIGHT HIP REPLACEMENT Cardiac Surgery: Yes (right leg arterial clot removal) Coronary Artery Bypass Graft: No Eye Surgery: Yes (BILATERAL CATARACT SX) Hysterectomy: Yes Other Surgery: Yes (DETACHED RETINA RIGHT EYE 1992) Social History Alcohol Use: Yes (rare) Tobacco Use: No Substance Use: No Allergies-Medications (Allergen,Severity, Reaction): Coded Allergies: No Known Allergies (Verified Allergy, Unknown, 10/08/17) Reported Meds & Prescriptions Reported Meds & Active Scripts Active Lasix (Furosemide) 20 Mg Tab 20 Mg PO BID Potassium Chloride ER (Potassium Chloride) 20 Meq Tab 20 Meq PO DAILY Pantoprazole (Pantoprazole Sodium) 40 Mg Tab 40 Mg PO HS 30 Days Metoprolol Tartrate 25 Mg Tab 25 Mg PO Q12HR 30 Days Aspirin EC (Aspirin) 325 Mg Tabdr 325 Mg PO DAILY 30 Days Reported Tizanidine (Tizanidine HCl) 2 Mg Tab 2 Mg PO TID Tramadol (Tramadol HCl) 50 Mg Tab 50 Mg PO Q6H PRN Coumadin (Warfarin) 5 Mg Tab 5 Mg PO EVERY OTHER DAY Coumadin (Warfarin) 4 Mg Tab 4 Mg PO EVERY OTHER DAY Fluticasone Nasal [place] 50 Mcg/Act Naspr 50 Mcg EACH NARE BID 50 mcg/spray Alendronate (Alendronate Sodium) 70 Mg Tab 70 Mg PO Q7D Enalapril (Enalapril Maleate) 10 Mg Tab 10 Mg PO DAILY Calcium 600 with Vitamin D (Calcium Carbonate-Cholecalciferol) 600-400 mg-Unit Tab 1 Tab PO DAILY Docusate Sodium 100 Mg Cap 100 Mg PO HS [iron tab] 325 Mg PO DAILY Diff-Stat (Probiotic Product) 1 Cap Cap 1 Cap PO QID 10 Days Lovastatin 20 Mg Tab 20 Mg PO HS Levoxyl (Levothyroxine Sodium) 100 Mcg Tab 100 Mcg PO DAILY Review of Systems Except as stated in HPI: all other systems reviewed are Neg Physical Exam Narrative GENERAL: SKIN: Warm and dry. HEAD: Atraumatic. Normocephalic. EYES: Pupils equal and round. No scleral icterus. No injection or drainage. ENT: No nasal bleeding or discharge. Mucous membranes pink and moist. Tongue is midline. No uvula deviation. NECK: Trachea midline. No JVD. CARDIOVASCULAR: Regular rate and rhythm. No murmurs, S3, S4. RESPIRATORY: No accessory muscle use. Clear to auscultation. Breath sounds equal bilaterally. GASTROINTESTINAL: Abdomen soft, non-tender, nondistended. Hepatic and splenic margins not palpable. MUSCULOSKELETAL: Extremities without clubbing, cyanosis, or edema. No obvious deformities. Full range of motion of the upper and lower extremities bilaterally. 2+ pulses bilaterally. NEUROLOGICAL: Awake and alert. No obvious cranial nerve deficits. Motor grossly within normal limits. Five out of 5 muscle strength in the arms and legs. Normal speech. PSYCHIATRIC: Appropriate mood and affect; insight and judgment normal. Data Data Last Documented VS Vital Signs Date Time Temp Pulse Resp B/P (MAP) Pulse Ox O2 Delivery O2 Flow Rate FiO2 12/06/17 22:09 67 20 198/96 (130) 97 Room Air 12/06/17 18:38 97.8 Orders Orders Complete Blood Count With Diff (12/06/17 18:49) Basic Metabolic Panel (Bmp) (12/06/17 18:49) Troponin I (12/06/17 18:49) Ckmb (Isoenzyme) Profile (12/06/17 18:49) Chest, Pa & Lat (12/06/17 ) Ct Pulmonary Angiogram (12/06/17 ) Coag Profile (12/06/17 19:26) B-Type Natriuretic Peptide (12/06/17 19:32) Enalapril (Vasotec) (12/06/17 20:30) Metoprolol Tartrate (Lopressor) (12/06/17 20:30) Hepatic Functional Panel (12/06/17 19:46) Iohexol 350 Inj (Omnipaque 350 Inj) (12/06/17 21:39) Clonidine (Catapres) (12/06/17 22:00) Labs Laboratory Tests Test 12/06/17 19:45 12/06/17 19:46 Prothrombin Time 25.9 SEC Prothromb Time International Ratio 2.6 RATIO Activated Partial Thromboplast Time 31.1 SEC B-Type Natriuretic Peptide 346 PG/ML White Blood Count 7.1 TH/MM3 Red Blood Count 4.20 MIL/MM3 Hemoglobin 13.0 GM/DL Hematocrit 38.7 % Mean Corpuscular Volume 92.2 FL Mean Corpuscular Hemoglobin 30.8 PG Mean Corpuscular Hemoglobin Concent 33.4 % Red Cell Distribution Width 13.4 % Platelet Count 243 TH/MM3 Mean Platelet Volume 7.8 FL Neutrophils (%) (Auto) 58.2 % Lymphocytes (%) (Auto) 27.3 % Monocytes (%) (Auto) 8.0 % Eosinophils (%) (Auto) 5.0 % Basophils (%) (Auto) 1.5 % Neutrophils # (Auto) 4.1 TH/MM3 Lymphocytes # (Auto) 1.9 TH/MM3 Monocytes # (Auto) 0.6 TH/MM3 Eosinophils # (Auto) 0.4 TH/MM3 Basophils # (Auto) 0.1 TH/MM3 CBC Comment DIFF FINAL Differential Comment Blood Urea Nitrogen 20 MG/DL Creatinine 0.78 MG/DL Random Glucose 110 MG/DL Total Protein 7.0 GM/DL Albumin 3.5 GM/DL Calcium Level 8.7 MG/DL Alkaline Phosphatase 61 U/L Aspartate Amino Transf (AST/SGOT) 19 U/L Alanine Aminotransferase (ALT/SGPT) 14 U/L Total Bilirubin 0.2 MG/DL Direct Bilirubin 0.1 MG/DL Sodium Level 140 MEQ/L Potassium Level 4.2 MEQ/L Chloride Level 103 MEQ/L Carbon Dioxide Level 29.4 MEQ/L Anion Gap 8 MEQ/L Estimat Glomerular Filtration Rate 70 ML/MIN Indirect Bilirubin 0.1 MG/DL Total Creatine Kinase 68 U/L Troponin I LESS THAN 0.02 NG/ML MDM Medical Decision Making Medical Screen Exam Complete: Yes Emergency Medical Condition: Yes Medical Record Reviewed: Yes Interpretation(s) CBC & BMP Diagram 12/06/17 19:46 Total Protein 7.0, Albumin 3.5, Calcium Level 8.7, Alkaline Phosphatase 61, Aspartate Amino Transf (AST/SGOT) 19, Alanine Aminotransferase (ALT/SGPT) 14, Total Bilirubin 0.2, Direct Bilirubin 0.1 Last Impressions Chest X-Ray 12/06/17 0000 Signed Impressions: Service Date/Time: Wednesday, December 06, 2017 19:26 - CONCLUSION: 1. Advanced cardiomegaly and chronic interstitial changes. Stable compared to prior exam. Tim Palomino MD troponin and CKMB negative EKG shows sinus rhythm with no sign of acute ischemia or arrythmia read by me and attending. BNP in the 300s Differential Diagnosis Fracture versus PE versus CHF versus a typical chest pain versus pleurisy versus muscle pain Narrative Course 87-year-old female that presents to the ED for evaluation of right-sided shoulder pain and chest pain. Patient was properly examined and was found to have signs and symptoms of unclear etiology. Patient was sent here by Dr. Gauthier for evaluation of possible PE. Labs and imaging ordered. This showed negative. Patient was reassured. At this time does not appear to be any sign of acute distress. I called Dr. Gauthier who agrees the patient can go home. Patient agrees with plan. Patient was found to be somewhat hypertensive here. She did not took her night medications. She was given medications here. She was given clonidine as well to bring it down. She was monitor with good results and improvement of her blood pressure. She was told that if anything worsens she is to come back to the ED. Follow with PCP. Family and patient agree with plan. Patient already taking tramadol for pain with good results. Told to follow up with her doctor. Diagnosis Primary Impression: Shoulder blade pain Patient Instructions: General Instructions Additional Instructions: Continue taking the medications given to you for pain. Follow with PCP. Warm compresses. See ED worsening symptoms. Med/Other Pt SpecificInfo: No Change to Meds Disposition: 01 DISCHARGE HOME Condition: Stable Truman Arredondo Dec 06, 2017 21:17
[2017-12-06] MEDS ORDERED: IOHEXOL 350 MG/ML 10 ML VIAL (for RAD DIAG) IVCONTRAST ONE (21:39)
--- NOTE | 2017-12-06 21:48 | RADRPT ---
EXAM DATE/TIME: 12/06/2017 21:32 [facility] COMPARISON: CTA RUNOFF W 3D RECON, May 19, 2017, 4:55. INDICATIONS : Shortness of breath, back pain. IV CONTRAST: 75 cc Omnipaque 350 (iohexol) IV RADIATION DOSE: 10.92 CTDIvol (mGy) MEDICAL HISTORY : Cardiovascular disease. Hypertension. SURGICAL HISTORY : None. ENCOUNTER: Initial ACUITY: 2 days PAIN SCALE: 10/10 LOCATION: chest TECHNIQUE: Volumetric scanning of the chest was performed using a pulmonary embolism protocol MIP images were re constructed. Using automated exposure control and adjustment of the mA and/or kV according to patien t size, radiation dose was kept as low as reasonably achievable to obtain optimal diagnostic quality images. DICOM format image data is available electronically for review and comparison. Follow-up recommendations for detected pulmonary nodules are based at a minimum on nodule size and pa tient risk factors according to Fleischner Society Guidelines. FINDINGS: The examination is of good diagnostic quality. No pulmonary embolus is identified. The heart is moderately enlarged. There is no hilar or mediastinal adenopathy. No axillary adenopathy is seen. The visualized pulmonary parenchyma demonstrates COPD change with minimal atelectatic change at the l eft lung base. No suspicious mass lesions are identified. There are degenerative changes within the thoracic spine. The patient is post kyphoplasty. The limited portions of upper abdomen demonstrate multiple low attenuation lesions within the liver. The largest measures 3.7 cm. There are most compatible with simple cyst. CONCLUSION: 1. Advanced cardiomegaly. 2. No pulmonary embolus. 3. Rotatory scoliosis with degenerative changes and post kyphoplasty change within the thoracic spine . Tim Palomino MD on December 06, 2017 at 21:45 Board Certified Radiologist. This report was verified electronically.
[2017-12-06] MEDS ORDERED: cloNIDine HCL 0.1 MG TAB PO ONE (22:00)
[2017-12-06 22:09] VITALS: BP 198/96; PULSE 67; RESP 20; O2SAT 97
[2017-12-06 22:57] VITALS: BP 182/94; PULSE 63; RESP 20; O2SAT 97
[2017-12-06 23:17] VITALS: BP 147/72; PULSE 70; RESP 18; O2SAT 97
[2017-12-07] MEDS ORDERED: FERR325T18 PO (10:24)
--- NOTE | 2017-12-07 19:48 | EKG ---
Date Performed: 12/06/2017 Time Performed: 22:51:51 PTAGE: 87 years EKG: ATRIAL FIBRILLATION MARKED RIGHT AXIS DEVIATION ANTEROSEPTAL MYOCARDIAL INFARCTION ABNORMAL ECG PREVIOUS TRACING : 10/08/2017 01.27 Since the prior tracing, there has been no significant hill DOCTOR: Inez Mercer Interpretating Date/Time 12/07/2017 19:47:25
== END 2017-12-06 23:34 | disposition home or self-care (01) ==
LOC: NEPE 18:37
DX: M25.511 Pain in right shoulder (principal); I10 Essential (primary) hypertension; R94.31 Abnormal electrocardiogram [ECG] [EKG]; I51.7 Cardiomegaly; M81.0 Age-related osteoporosis without current pathological fracture; Z86.718 Personal history of other venous thrombosis and embolism; Z79.01 Long term (current) use of anticoagulants
CPT/HCPCS: 71046; 71275; 80048; 80076; 82550; 83880; 84484; 85025; 85610; 85730; 93005; 99285; Q9967